=== PATIENT | female | born 1935 | race Caucasian/White ===

== ENCOUNTER 2019-12-08 03:20 | Outpatient (CLI) | payer MEDICARE, BC, SELFPAY ==
[2019-12-08 18:37] LABS: SARS-CoV-2 RNA PCR Negative
== END 2019-12-08 03:21 | disposition home or self-care (01) ==
LOC: ANHCOVIDDT 03:20
PROVIDERS: PCP Physician Assistant; Visit Provider Internal Medicine Gastroenterology
DX: Z01.812 Encounter for preprocedural laboratory examination (principal); Z20.828 Contact with and (suspected) exposure to other viral communicable diseases
CPT/HCPCS: 87635; C9803; U0003

== ENCOUNTER 2019-12-10 00:35 | Day surgery (SDC) | payer MEDICARE, BC, SELFPAY ==
[2019-11-30 15:06] VITALS: BMI 20.8
[2019-12-10 07:04] VITALS: BP 111/72; PULSE 69; RESP 16; TEMP 36.7; O2SAT 100
[2019-12-10] MEDS: LACTATED RINGERS 1,000 ML 150 ML IV CONT (07:17)
--- NOTE | 2019-12-10 08:00 | WPDANESEPPF ---
Anes - Initial Pre Proc Eval Procedure: Operation Date: 12/10/19 08:00 Proposed Procedures p Colonoscopy - Jamal Lowry DO Date/Time: 12/10/19 08:00 Surgeon: Jamal Lowry DO Pre Op Diagnosis: chronic constipation Patient Data Age: 84 Gender: F Height: 5 ft 1 in Weight: 50.4 kg Last Vital Signs Temp 98.1 F 12/10/19 07:04 Pulse 69 12/10/19 07:04 Resp 16 12/10/19 07:04 BP 111/72 12/10/19 07:04 Pulse Ox 100 12/10/19 07:04 Allergies Allergy/AdvReac Type Severity Reaction Status Date / Time No Known Allergies Allergy NONE Verified 12/10/19 07:02 Home Medications Medication Instructions Recorded Confirmed Type ascorbic acid 125 mg-collagen, 1 cap PO DAILY 03/19/19 12/10/19 History hydrolyzed 740 mg capsule multivitamin 1 tablet PO DAILY 03/19/19 12/10/19 History levothyroxine 50 mcg tablet 50 mcg PO DAILY #90 tablet 10/06/19 12/10/19 Rx lisinopril 10 mg tablet 10 mg PO DAILY #90 tablet 10/06/19 12/10/19 Rx Patient hx anesthesia problems: none Family hx anesthesia problems: none PMFSH Past Medical History Medical History (Updated 12/10/19 @ 08:00 by Jose Santana MD) Hypertension Hypothyroidism Social History Social History Smoking status: Never smoker Second hand tobacco smoke exposure: No Alcohol intake: never Anes - Eval Final PreProcedure Day of Procedure 12/10/19 08:00 Patient weight: normal Heart: regular rate and rhythm Lungs: clear to auscultation Airway: Mallampati scale class II Neurological: alert and oriented Last oral intake: >/= 8 hours ASA classification: II Emergent: no Anesthetic plan: proceed Anesthesia type and monitoring: general GIVS and standard monitoring Informed Consent: The patient's anesthetic plan and its attendant risks and benefits were discussed with the patient/family/POA. Questions were solicited and answers provided to the satisfaction of the patient/family/POA.
--- NOTE | 2019-12-10 08:14 | PM.IMHP ---
H&P: HPI History of Present Illness Date/Time: 12/10/19 08:14 Chief complaint: chronic constipation Narrative: Reason for visit is colonoscopy. This very pleasant lady seen in consultation at request of primary physician. Impression: Here is a very pleasant lady with abdominal bloating, constipation and gas. This compatible with IBS with constipation. There may be a component underlying chronic idiopathic constipation. She does complain of occasional rectal bleeding which is sounds perianal in origin. HTN. HLD. Hypothyroidism. Recommendation: Colonoscopy. History: This very pleasant lady is complaining of chronic abdominal bloating, constipation and gas. She has tried multiple different medications without any improvement. This is going on for years. She had a previous colonoscopy revealing evidence of a hyperplastic colon polyp. He does complain of occasional blood on the tissue paper. She is here for colonoscopy. Physical examination: General: very pleasant patient in no acute distress. HEENT: Head was normocephalic sclerae is clear mouth without masses neck was supple. Heart: Rate rhythm regular without S3 or S4. Lungs: CTA. Abdomen: Soft with no guarding or rigidity. Bowel sounds were active. Neurologic: Cranial nerves 2 through 12 intact. No focal defects. No clonus. Musculoskeletal system: Revealed no joint tenderness or swelling no muscle atrophy. Extremities: Reveal no significant edema. Skin: Warm and dry with normal turgor. Mental status: intact. Patient is alert and oriented. Review of Systems Review of Systems: All systems reviewed & are unremarkable except as noted in HPI and below PMFSH Past Medical History Medical History (Updated 12/10/19 @ 08:13 by Jamal Lowry DO) Chronic idiopathic constipation HLD (hyperlipidemia) Hypertension Hypothyroidism IBS (irritable bowel syndrome) Social History Social History Smoking status: Never smoker Second hand tobacco smoke exposure: No Alcohol intake: never Meds Home Medications and Allergies Home Medications Medication Instructions Recorded Confirmed Type ascorbic acid 125 mg-collagen, 1 cap PO DAILY 03/19/19 12/10/19 History hydrolyzed 740 mg capsule multivitamin 1 tablet PO DAILY 03/19/19 12/10/19 History levothyroxine 50 mcg tablet 50 mcg PO DAILY #90 tablet 10/06/19 12/10/19 Rx lisinopril 10 mg tablet 10 mg PO DAILY #90 tablet 10/06/19 12/10/19 Rx Allergies Allergy/AdvReac Type Severity Reaction Status Date / Time No Known Allergies Allergy NONE Verified 12/10/19 07:02 Vital Signs Vital Signs - 24 hr 12/10/19 07:04 Temperature 36.7 C Pulse Rate 69 Respiratory Rate 16 Blood Pressure 111/72 Pulse Oximetry 100
[2019-12-10 08:34] VITALS: BP 82/50; PULSE 73; RESP 13; O2SAT 98
[2019-12-10 08:44] VITALS: BP 110/74; PULSE 71; RESP 13; O2SAT 98
[2019-12-10 08:54] VITALS: BP 112/55; PULSE 64; RESP 13; O2SAT 98
== END 2019-12-10 09:16 | disposition home or self-care (01) ==
PROVIDERS: PCP Physician Assistant; Visit Provider Internal Medicine Gastroenterology
PROC: 0DJD8ZZ Inspection of Lower Intestinal Tract, Via Natural or Artificial Opening Endoscopic (ICD-10-PCS; CPT 45378; principal; 2019-12-10 08:00)
DX: K59.09 Other constipation (principal); K57.30 Diverticulosis of large intestine without perforation or abscess without bleeding; K64.8 Other hemorrhoids; R10.9 Unspecified abdominal pain; R14.0 Abdominal distension (gaseous); I10 Essential (primary) hypertension; E78.5 Hyperlipidemia, unspecified; E03.9 Hypothyroidism, unspecified
CPT/HCPCS: 45380; 88305; 88313; J2704; J7120

== ENCOUNTER 2019-12-15 09:17 | Outpatient (CLI) | payer MEDICARE, BC, SELFPAY ==
--- NOTE | ~2019-12-15 | CT_ITS ---
EXAMINATION: CT abdomen w con INDICATION: Left upper quadrant pain TECHNIQUE: Computed tomographic images of the abdomen were obtained after the administration of 100 c c of Omnipaque 350 intravenous contrast. The dose-length product (DLP) was 116.31 mGy-cm. Automated e xposure control and iterative reconstruction technique were employed. COMPARISON: 01/16/2015 FINDINGS: Minimal dependent atelectasis is present in the lung bases. The heart size is normal. There is a small sliding hiatal hernia. The liver, spleen, gallbladder, and adrenal glands are normal. Cys ts of the kidneys measure up to 1.5 cm on the right. There are no pathologically enlarged abdominal l ymph nodes. A large volume of colonic stool is present. There is moderate lumbar spondylosis. IMPRESSION: 1. Constipation. Reviewed, dictated and finalized at location B. IMPRESSION: 1. Constipation.
--- NOTE | ~2019-12-15 | MM_ITS ---
EXAMINATION: MM diagnostic lalo BI w mireya HISTORY: Palpable left breast abnormality. TECHNIQUE: Additional 3-D tomosynthesis images of the left breast were performed and synthetic 2-D im ages were generated. CAD analysis was submitted and interpreted. COMPARISON: 12/15/2019 BREAST PARENCHYMAL COMPOSITION: Breast composed of scattered areas of fibroglandular density. FINDINGS: There is focal asymmetry in the upper outer quadrant of the left breast corresponding to th e area of palpable concern. There is no mammographic evidence for malignancy. IMPRESSION: 1. Focal left breast asymmetry, upper outer quadrant, corresponding to the area of palpable concern. 2. Left breast ultrasound recommended. BI-RADS Category 0: Incomplete: Needs additional imaging evaluation. Reviewed, dictated and finalized at location A.
[2019-12-15 10:07] LABS: Estimated Glomerular Filt Rate 47
== END 2019-12-15 09:18 | disposition home or self-care (01) ==
PROVIDERS: PCP Physician Assistant; Visit Provider Physician Assistant Medical
DX: K59.00 Constipation, unspecified (principal); N63.21 Unspecified lump in the left breast, upper outer quadrant
CPT/HCPCS: 74160; 77062; 77066; G0279; Q9967

== ENCOUNTER 2020-01-05 13:25 | Outpatient (CLI) | payer MEDICARE, BC, SELFPAY ==
--- NOTE | ~2020-01-05 | US_ITS ---
EXAMINATION: US breast LT limited HISTORY: Palpable abnormality in the upper outer quadrant of the left breast TECHNIQUE: Limited left breast ultrasound is performed. FINDINGS: There is no evidence of focal abnormal cystic or solid mass in the vicinity of the reported palpable abnormality of concern. IMPRESSION: No specific sonographic correlate is identified for the reported palpable abnormality of concern. Fur ther evaluation at this time should be based on clinical assessment. Continued follow-up physical exa mination is recommended. BI-RADS Category 1: Negative Reviewed, dictated and finalized at location A. IMPRESSION: No specific sonographic correlate is identified for the reported palpable abnor mality of concern. Further evaluation at this time should be based on clinical assessment. Continued follow-up physical examination is recommended. BI-RADS Category 1: Negative
== END 2020-01-05 13:26 | disposition home or self-care (01) ==
PROVIDERS: PCP Physician Assistant; Visit Provider Physician Assistant Medical
DX: R92.8 Other abnormal and inconclusive findings on diagnostic imaging of breast (principal)
CPT/HCPCS: 76642

== ENCOUNTER 2020-01-12 07:10 | Outpatient (CLI) | payer MEDICARE, BC, SELFPAY ==
[2020-01-12 07:41] LABS: Hematocrit 39.8 % (37.0-47.0); Hemoglobin 13.1 g/dL (12.0-15.0); Mean Corpuscular HGB Conc 32.9 g/dl (32-36); Mean Corpuscular Hemoglobin 32.3 pg (26-34); Mean Corpuscular Volume 98.3 fl (80-100); Mean Platelet Volume 9.8 fl (7.4-10.4); Platelet Count Result 191 k/mm3 (150-375); Red Blood Count 4.05 M/mm3 (4.2-5.4); Red Cell Distribution Width 13.2 % (11.5-14.5); White Blood Count 4.7 K/mm3 (4.5-10.0)
[2020-01-12 07:54] LABS: Alanine Aminotransferase 12 U/L (4-35); Albumin Level 4.2 g/dL (3.5-5.1); Alkaline Phosphatase 70 U/L (38-126); Anion Gap 6 mmol/L (8-16); Aspartate Amino Transferase 25 U/L (14-36); Bilirubin,Total 0.6 mg/dL (0.2-1.3); Blood Urea Nitrogen 13 mg/dL (7-17); Calcium 9.3 mg/dL (8.4-10.2); Carbon Dioxide 33 mmol/L (22-30); Chloride 102 mmol/L (98-107); Cholesterol 260 mg/dL (0-200); Estimated Glomerular Filt Rate 47; Glucose 94 mg/dL (65-105); HDL Direct 76 mg/dL; Potassium 4.1 mmol/L (3.4-5.0); Sodium 141 mmol/L (137-145); Triglycerides 90 mg/dL (<150)
[2020-01-12 08:05] LABS: LDL Cholesterol Direct 154 mg/dL
== END 2020-01-12 07:11 | disposition home or self-care (01) ==
PROVIDERS: PCP Physician Assistant; Visit Provider Physician Assistant
DX: E03.9 Hypothyroidism, unspecified (principal); I10 Essential (primary) hypertension
CPT/HCPCS: 36415; 80053; 80061; 84443; 85027

== ENCOUNTER 2021-03-21 07:27 | Outpatient (CLI) | payer MEDICARE, BC, SELFPAY ==
[2021-03-21 08:08] LABS: Hematocrit 40.6 % (37.0-47.0); Hemoglobin 13.3 g/dL (12.0-15.0); Mean Corpuscular HGB Conc 32.8 g/dl (32-36); Mean Corpuscular Hemoglobin 32.1 pg (26-34); Mean Corpuscular Volume 98.1 fl (80-100); Mean Platelet Volume 9.9 fl (7.4-10.4); Platelet Count Result 189 k/mm3 (150-375); Red Blood Count 4.14 M/mm3 (4.2-5.4); Red Cell Distribution Width 13.1 % (11.5-14.5); White Blood Count 5.6 K/mm3 (4.5-10.0)
[2021-03-21 08:17] LABS: Alanine Aminotransferase 15 U/L (4-35); Albumin Level 4.4 g/dL (3.5-5.1); Alkaline Phosphatase 82 U/L (38-126); Anion Gap 5 mmol/L (8-16); Aspartate Amino Transferase 27 U/L (14-36); Bilirubin,Total 0.5 mg/dL (0.2-1.3); Blood Urea Nitrogen 16 mg/dL (7-17); Carbon Dioxide 30 mmol/L (22-30); Chloride 101 mmol/L (98-107); Cholesterol 287 mg/dL (0-200); Estimated Glomerular Filt Rate 53; Glucose 94 mg/dL (65-110); HDL Direct 79 mg/dL; Potassium 3.7 mmol/L (3.4-5.0); Sodium 136 mmol/L (137-145); Triglycerides 111 mg/dL (<150)
[2021-03-21 08:29] LABS: LDL Cholesterol Direct 157 mg/dL
[2021-03-21 10:54] LABS: Free T4 Free Thyroxine 0.98 ng/mL (0.78-2.19)
[2021-03-25 18:12] LABS: Folic Acid 14.7 ng/mL (2.76->20)
== END 2021-03-21 07:28 | disposition home or self-care (01) ==
PROVIDERS: PCP Physician Assistant; Visit Provider Physician Assistant
DX: E78.5 Hyperlipidemia, unspecified (principal); E03.9 Hypothyroidism, unspecified; R53.83 Other fatigue
CPT/HCPCS: 36415; 80053; 80061; 82607; 82746; 84439; 84443; 85027

== ENCOUNTER 2021-05-30 10:41 | Outpatient (CLI) | payer MEDICARE, BC, SELFPAY ==
[2021-05-30 11:25] LABS: Add Urine Microscopic? YES; Appearance Urine Cloudy (Clear); Bacteria Urine Trace /hpf; Bilirubin Urine Negative (Negative); Blood Urine 3+ (Negative); Color Urine Yellow (Yellow); Glucose Urine UA Negative (Negative); Ketones Urine Negative (Negative); Leukocyte Esterase Ur 3+ LEU/UL (NEGATIVE); Mucus Urine Rare /lpf; Nitrate Urine Negative (Negative); Protein Urine 2+ mg/dL (Negative); Specific Grav Ur 1.006 (1.001-1.035); Squamous Epithelial Cell Urine Rare /hpf (Few); Urobilinogen Urine Negative mg/dL (<2.0); WBC Clumps Urine Present /HPF; WBC Urine >75 /hpf (0-3)
== END 2021-05-30 10:42 | disposition home or self-care (01) ==
LOC: ANHLAB 10:44
PROVIDERS: PCP Physician Assistant; Visit Provider Physician Assistant
DX: R30.0 Dysuria (principal)
CPT/HCPCS: 81001; 87077; 87086; 87186

== ENCOUNTER 2021-07-28 07:10 | Outpatient (CLI) | payer MEDICARE, BC, SELFPAY ==
[2021-07-28 07:49] LABS: Alanine Aminotransferase 32 U/L (4-35); Albumin Level 4.1 g/dL (3.5-5.1); Alkaline Phosphatase 69 U/L (38-126); Anion Gap 4 mmol/L (8-16); Aspartate Amino Transferase 36 U/L (14-36); Bilirubin,Total 0.5 mg/dL (0.2-1.3); Blood Urea Nitrogen 13 mg/dL (7-17); Calcium 9.1 mg/dL (8.4-10.2); Carbon Dioxide 30 mmol/L (22-30); Chloride 100 mmol/L (98-107); Estimated Glomerular Filt Rate 53; Glucose 97 mg/dL (65-110); Potassium 4.1 mmol/L (3.4-5.0); Sodium 134 mmol/L (137-145)
== END 2021-07-28 07:11 | disposition home or self-care (01) ==
LOC: ANHLAB 07:14
PROVIDERS: Visit Provider Physician Assistant
DX: R74.8 Abnormal levels of other serum enzymes (principal)
CPT/HCPCS: 36415; 80053

== ENCOUNTER 2021-08-29 20:30 | Emergency (ER) | payer MEDICARE, BC, SELFPAY ==
[2021-08-29] VITALS (13 sets, daily range): BP systolic 156–179; BP diastolic 71–85; PULSE 58–67; RESP 13–25; TEMP 36.7; O2SAT 96–100
--- NOTE | ~2021-08-29 | XR_ITS ---
EXAMINATION: XR chest 2V Exam Date/Time: 08/29/2021 20:49 CDT HISTORY: WEAKNESS, STROKE X 6 WEEKS AGO, NO CARDIAC HX Comparison: CT abdomen 12/15/2019. RESULT: Lines, tubes, and devices: None. Lungs and pleura: Clear. Cardiomediastinal silhouette: Stable cardiomediastinal silhouette including multiple calcified lymph nodes. Other: No acute osseous or upper abdominal finding. IMPRESSION: No acute cardiopulmonary process. Reviewed, dictated and finalized at location K.
--- NOTE | 2021-08-29 20:38 | ED.GENADULT ---
HPI - General Adult General Chief complaint: Weakness Stated complaint: thinks she has a bladder infection Time Seen by Provider: 08/29/21 20:38 Source: patient, family and RN notes reviewed Mode of arrival: ambulatory Limitations: no limitations History of Present Illness HPI narrative: Patient is 85 years old white female brought to the emergency room by her daughter from home because of general fatigue and weakness noticed by the daughter today. Patient had knee injection yesterday and her main complaint today is knee pain. She denies other symptoms. She denies any fever, chills, nausea, vomiting, abdominal pain, chest pain, shortness of breath, headache, back pain. 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 With right hemiplegia and aphasia which are slowly getting better. Patient used to live alone, after having a stroke been living with her daughter since. Related Data Home Medications Medication Instructions Recorded Confirmed multivitamin (Multiple Vitamins) 1 tablet PO DAILY 03/19/19 08/28/21 polyethylene glycol 3350 17 17 g PO DAILY 07/18/21 08/28/21 gram/dose oral powder Allergies Allergy/AdvReac Type Severity Reaction Status Date / Time No Known Allergies Allergy NONE Verified 08/28/21 11:01 Review of Systems Review of Systems: All systems reviewed & are unremarkable except as noted in HPI and below PMFSH Past Medical History Medical History Aphasia as late effect of cerebrovascular accident At risk for falling Chronic idiopathic constipation Constipation CVA (cerebral vascular accident) Dysarthria Dysuria Elevated liver enzymes 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 Daughter is involved and will provide assistance. Smoking status: Never smoker Second hand tobacco smoke exposure: No Alcohol intake: never Substance use: never Substance use type: does not use Gender identity (if verbalized by the patient): Female Exam Narrative: General appearance: Well-developed, well-nourished, looks weak, depressed Skin: Normal color Head: Normocephalic, nontraumatic Eyes: Clear conjunctiva ENT: Oropharynx normal, ears normal, nose normal Neck: Supple, nontender Chest and respiratory: Airway patent, no respiratory distress, no accessory muscle use Heart: Regular rate/rhythm Abdomen: Soft, nontender, no organomegaly, quiet bowel sounds Vascular: Normal peripheral pulses, normal capillary refill. Musculoskeletal: Normal range of motion, nontender back, knee exam bilaterally showed no different, no rash, no swelling, no warmth, no tenderness, I have 8 minutes Neurologic: Alert and oriented ?3, right hemiplegia Course Vital Signs Vital signs: Vital Signs Temperature 36.7 C 08/29/21 20:36 Pulse Rate 58 L 08/29/21 20:36 Respiratory Rate 18 08/29/21 20:36 Blood Pressure 156/71 H 08/29/21 20:36 Pulse Oximetry 99 08/29/21 20:36 Oxygen D
--- NOTE | 2021-08-29 20:41 | ECG_ITS ---
Measurements Intervals [place] Rate: 63 P: 57 MI: 143 QRS: -14 QRSD: 86 T: 53 QT: 415 QTc: 428 Interpretive Statements SINUS RHYTHM DELAYED PRECORDIAL R/S TRANSITION BORDERLINE ECG Electronically Signed On 08-30-2021 6:09:59 CDT by Daniel Chan D.O.
[2021-08-29 21:23] LABS: Basophils Percent Auto 0.8 % (0.2-1.2); Eosinophils Absolute Auto 0.2 K/mm3 (0-0.3); Eosinophils Percent Auto 3.7 % (0-4.4); Hematocrit 36.8 % (37.0-47.0); Hemoglobin 12.1 g/dL (12.0-15.0); Immature Granulocyte Absolute 0.01 K/mm3 (0.00-0.031); Immature Granulocyte Percent A 0.2 % (0-0.5); Lymphocytes Absolute Auto 1.83 K/mm3 (0.9-3.2); Mean Corpuscular HGB Conc 32.9 g/dl (32-36); Mean Corpuscular Hemoglobin 32.7 pg (26-34); Mean Corpuscular Volume 99.5 fl (80-100); Mean Platelet Volume 9.9 fl (7.4-10.4); Monocytes Absolute Auto 0.4 K/mm3 (0.1-0.6); Monocytes Percent Auto 8.4 % (2.6-8.5); Neutrophils Absolute Auto 2.6 K/mm3 (1.3-6.7); Neutrophils Percent Auto 50.9 % (45.5-73.1); Platelet Count Result 172 k/mm3 (150-375); Red Cell Distribution Width 13.4 % (11.5-14.5); White Blood Count 5.1 K/mm3 (4.5-10.0)
[2021-08-29 21:24] LABS: Appearance Urine Clear (Clear); Bilirubin Urine Negative (Negative); Blood Urine Trace-lysed (Negative); Color Urine Yellow (Yellow); Glucose Urine UA Negative (Negative); Ketones Urine Negative (Negative); Leukocyte Esterase Ur Negative LEU/UL (Negative); Nitrate Urine Negative (Negative); Protein Urine Negative (Negative); Urobilinogen Urine 0.2 mg/dL (<2.0)
[2021-08-29 21:27] LABS: Add Urine Microscopic? YES; RBC Urine 0-2 /hpf (0-2); WBC Urine 0-3 /hpf
[2021-08-29 21:35] LABS: Alanine Aminotransferase 21 U/L (6-35); Alkaline Phosphatase 50 U/L (38-126); Anion Gap 5 mmol/L (8-16); Aspartate Amino Transferase 35 U/L (14-36); Bilirubin,Total 0.8 mg/dL (0.2-1.3); Blood Urea Nitrogen 17 mg/dL (7-17); Calcium 8.9 mg/dL (8.4-10.2); Carbon Dioxide 28 mmol/L (22-30); Chloride 103 mmol/L (98-107); Estimated CRCL calculation 33 ml/min; Estimated Glomerular Filt Rate > 60; Glucose 93 mg/dL (65-110); Potassium 4.1 mmol/L (3.4-5.0); Sodium 136 mmol/L (137-145)
== END 2021-08-29 22:26 | disposition home or self-care (01) ==
LOC: ANHED 21:28
PROVIDERS: Emergency Provider Emergency Medicine; PCP Physician Assistant
DX: R53.1 Weakness (principal); I69.351 Hemiplegia and hemiparesis following cerebral infarction affecting right dominant side; I69.320 Aphasia following cerebral infarction; K59.04 Chronic idiopathic constipation; E78.5 Hyperlipidemia, unspecified; I10 Essential (primary) hypertension; E03.9 Hypothyroidism, unspecified; K58.9 Irritable bowel syndrome, unspecified; M17.11 Unilateral primary osteoarthritis, right knee; R94.31 Abnormal electrocardiogram [ECG] [EKG]
CPT/HCPCS: 36415; 51701; 71046; 80053; 81001; 84443; 85025; 93005; 99283

== ENCOUNTER 2021-11-10 11:27 | Emergency (ER) | payer MEDICARE, BC, SELFPAY ==
[2021-11-10] VITALS (28 sets, daily range): BP systolic 128–149; BP diastolic 60–72; PULSE 60–76; RESP 11–28; TEMP 36.4; O2SAT 96–100
--- NOTE | ~2021-11-10 | CT_ITS ---
EXAMINATION: CT brain wo con DATE: 11/10/2021 12:13 INDICATION: Generalized headache for 2 weeks. CVA in July. TECHNIQUE: Computed tomography (CT) of the head was performed without intravenous contrast. The dose- length product was 605.33 mGy-cm. Automated exposure control and iterative reconstruction technique w ere employed. COMPARISON: No prior studies for comparison. FINDINGS: There is geographic hypodensity in the right temporoparietal lobe, consistent with acute/nguyen bacute infarction. There are chronic left lacunar infarctions primarily involving the caudate nucleus and lentiform nucleus. Mild generalized atrophy. There are scattered mild periventricular and subcor tical white matter changes, most likely related to small vessel ischemic disease (microangiopathy). P aranasal sinuses and mastoids are pneumatized. Small left mastoid effusion. No depressed skull fractu re. IMPRESSION: 1. Right temporal-parietal lobe infarction, most likely acute/subacute. 2: Chronic left lacunar infarctions. Dr. Missael Drake discussed with Dr. Kathie Edward PA-C at 11/10/2021 12:18 CDT. Reviewed, dictated and finalized at location A.
--- NOTE | ~2021-11-10 | XR_ITS ---
EXAMINATION: XR chest 1V portable DATE: 11/10/2021 14:16 INDICATION: Cerebrovascular accident. TECHNIQUE: A single frontal view of the chest was obtained. COMPARISON: Chest 2 views 08/29/2021, CT abdomen 12/15/2019 FINDINGS: There is mild scarring at the lung apices. No pleural effusion or pneumothorax. The heart s ize is normal. IMPRESSION: 1. Mild scarring at the lung apices. Reviewed, dictated and finalized at location A.
--- NOTE | 2021-11-10 11:50 | ED.HA ---
HPI - Headache General Chief Complaint: Headache <LÁZARO Alvarez Last Filed: 11/10/21 17:44> Stated Complaint: headaches, hx of cva <LÁZARO Alvarez Last Filed: 11/10/21 17:44> Time Seen by Provider: 11/10/21 11:34 <LÁZARO Alvarez Last Filed: 11/10/21 17:44> Source: patient, family and old records reviewed <LÁZARO Alvarez Last Filed: 11/10/21 17:44> Mode of arrival: ambulatory <LÁZARO Alvarez Last Filed: 11/10/21 17:44> Limitations: no limitations <LÁZARO Alvarez Last Filed: 11/10/21 17:44> History of Present Illness HPI Narrative: Patient is an 86 y/o female who presents to the ED with c/o headaches. Per patient's records, she was diagnosed with a CVA and hospitalized at [facility] July 09-. She has been doing home health rehabilitation and physical therapy since then. She reports having intermittent mild headache over the last 2 weeks, which began in her right sided neck and go up into her right temporal region. She states her PCP sent her here today for a CT scan. Patient denies any headache currently. She states Tylenol does resolve the headaches. She denies any vision changes, new focal weakness, numbness, tingling, sinus issues, cough, fever. Patient states she was doing well initially with PT and rehab, but has been declining slightly over the last month. She does report an episode of severe dizziness/discoordination upon waking on October 09. Daughter denies any other focal deficits, slurred speech, weakness at that time. She was not evaluated at that time. <LÁZARO Alvarez Last Filed: 11/10/21 17:44> Related Data Home Medications: Home Medications Medication Instructions Recorded Confirmed multivitamin (Multiple Vitamins 1 tablet PO DAILY 03/19/19 10/31/21 tablet) polyethylene glycol 3350 17 17 g PO DAILY 07/18/21 10/31/21 gram/dose oral powder <LÁZARO lAvarez Last Filed: 11/10/21 17:44> Allergies/Adverse Reactions: Allergies Allergy/AdvReac Type Severity Reaction Status Date / Time No Known Allergies Allergy NONE Verified 11/10/21 11:31 <Kathie Edward PA-C - Last Filed: 11/10/21 17:44> Review of Systems Review of Systems: CONSTITUTIONAL: Denies fever, chills, or sweats. EYES: Denies visual changes. RESPIRATORY: Denies cough. ENT: Denies rhinorrhea, congestion, sore throat. GASTROINTESTINAL: Denies abdominal pain, nausea, vomiting. NEUROLOGIC: Reports right-sided headaches, episode of dizziness. Denies tingling, numbness, or focal weakness. 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 History of small bowel obstruction HLD (hyperlipidemia) Hyperlipidemia Hypertension Hypothyroidism Hypothyroidism IBS (irritable bowel syndrome) Left knee DJD Other fatigue Pain of right lower extremity Restless leg syndrome Right knee DJD SOB (shortness of breath) Vision changes <Kathie Edward PA-C - Last Filed: 11/10/21 17:44> Surgical History Surgical History: Surgical History History of bowel resection History of foot surgery History of hysterectomy leaving cervix intact <Kathie Edward PA-C - Last Filed: 11/10/21 17:44> Family History Family History: Family History Unknown Hypertension Heart di
--- NOTE | 2021-11-10 14:00 | PC.NURSE ---
Spoke with [facility] and gave nurse report to [facility] nurse. All questions answered at this time and informed that we are awaiting bed availability at [facility] at this time.
--- NOTE | 2021-11-10 14:02 | ECG_ITS ---
Measurements Intervals [place] Rate: 60 P: 59 KS: 145 QRS: -3 QRSD: 82 T: 44 QT: 403 QTc: 406 Interpretive Statements SINUS RHYTHM POOR R-WAVE PROGRESSION POSSIBLE LEFT ATRIAL ENLARGEMENT [-0.1mV P-WAVE IN V1/V2] COMPARED TO ECG 08/29/2021 21:02:48 NO SIGNIFICANT CHANGES Electronically Signed On 11-10-2021 16:35:09 CDT by Ulises Powers M.D.
[2021-11-10 14:25] LABS: Basophils Percent Auto 0.8 % (0.2-1.2); Eosinophils Absolute Auto 0.1 K/mm3 (0-0.3); Eosinophils Percent Auto 2.1 % (0-4.4); Hematocrit 39.3 % (37.0-47.0); Hemoglobin 12.4 g/dL (12.0-15.0); Immature Granulocyte Absolute 0.01 K/mm3 (0.00-0.031); Immature Granulocyte Percent A 0.2 % (0-0.5); Lymphocytes Absolute Auto 1.85 K/mm3 (0.9-3.2); Lymphocytes Percent Auto 38.7 % (18.3-44.2); Mean Corpuscular HGB Conc 31.6 g/dl (32-36); Mean Corpuscular Hemoglobin 32.8 pg (26-34); Mean Platelet Volume 10.3 fl (7.4-10.4); Monocytes Absolute Auto 0.4 K/mm3 (0.1-0.6); Monocytes Percent Auto 7.7 % (2.6-8.5); Neutrophils Absolute Auto 2.4 K/mm3 (1.3-6.7); Neutrophils Percent Auto 50.5 % (45.5-73.1); Platelet Count Result 172 k/mm3 (150-375); Red Blood Count 3.78 M/mm3 (4.2-5.4); Red Cell Distribution Width 13.3 % (11.5-14.5); White Blood Count 4.8 K/mm3 (4.5-10.0)
[2021-11-10 14:33] LABS: INR 0.9; Prothrombin Time 12.1 Seconds (11.1-14.7)
[2021-11-10 14:34] LABS: Alanine Aminotransferase 20 U/L (6-35); Albumin Level 4.4 g/dL (3.5-5.1); Alkaline Phosphatase 56 U/L (38-126); Anion Gap 9 mmol/L (8-16); Aspartate Amino Transferase 29 U/L (14-36); Bilirubin,Total 0.4 mg/dL (0.2-1.3); Blood Urea Nitrogen 19 mg/dL (7-17); Calcium 9.3 mg/dL (8.4-10.2); Carbon Dioxide 29 mmol/L (22-30); Chloride 100 mmol/L (98-107); Estimated CRCL calculation 26 ml/min; Estimated Glomerular Filt Rate 52; Glucose 95 mg/dL (65-110); Partial Thromboplastin Time 25.8 SECONDS (22.3-36.8); Sodium 138 mmol/L (137-145)
[2021-11-10 14:43] LABS: Troponin I < 0.012 ng/mL (0.000-0.034)
[2021-11-10 14:57] LABS: SARS-CoV-2 RNA PCR Negative
--- NOTE | 2021-11-10 17:40 | PC.NURSE ---
Patient care report called to ROSE Ware at [facility]. All questions answered at this time.
== END 2021-11-10 19:45 | disposition short-term general hospital (02) ==
PROVIDERS: Physician Assistant; Emergency Provider Emergency Medicine; PCP Physician Assistant
DX: I63.9 Cerebral infarction, unspecified (principal); Z20.822 Contact with and (suspected) exposure to COVID-19; R29.701 NIHSS score 1; I69.920 Aphasia following unspecified cerebrovascular disease; I69.951 Hemiplegia and hemiparesis following unspecified cerebrovascular disease affecting right dominant side; E78.5 Hyperlipidemia, unspecified; I10 Essential (primary) hypertension; E03.9 Hypothyroidism, unspecified; M17.0 Bilateral primary osteoarthritis of knee; G25.81 Restless legs syndrome; M19.90 Unspecified osteoarthritis, unspecified site; Z90.49 Acquired absence of other specified parts of digestive tract
CPT/HCPCS: 36415; 70450; 71045; 80053; 84484; 85025; 85610; 85730; 93005; 99285; C9803; U0003; U0005

== ENCOUNTER 2021-11-29 11:00 | Outpatient (RCR) | payer MEDICARE, BC, SELFPAY ==
--- NOTE | 2021-09-07 14:45 | OTOPEVAL ---
OCCUPATIONAL THERAPY INITIAL EVALUATION REPORT 09/07/21 Thank you for referring Anuradha Hager to [facility].? The patient is scheduled to be seen for therapy? 1x/week for 4 weeks. Please review, sign, date and return this plan of care JENNIFER. I agree with and certify that the following plan of care is medically necessary. Referring Physician Date Referring Provider: Sohail Martínez PA-C *OT Outpatient Evaluation Start: 09/07/21 13:40 Outpatient Past Medical History Neurological History Hx Neurological Disorders No Significant History Cardiovascular History Hx Hypertension Yes Respiratory History Hx Respiratory Disorders No Significant History Gastrointestinal History Hx Irritable Bowel Yes Hx Other Gastrointestinal Disorders Yes: Exploratory Laparotomy Genitourinary History Hx Genitourinary Disorders No Significant History Musculoskeletal History Hx Arthritis Yes Hx Orthopedic Surgery Yes: right foot surgery Hematological History Hx Hematological Disorders No Significant History Endocrine History Hx Hypothyroidism Yes HEENT History Hx Cataracts Yes: removed Integumentary History Hx Other Skin Disorders Yes: Dry Psychosocial History Hx Psychiatric Disorders No Significant History Pain History History of Any Previous or Ongoing No Significant History Instance of Pain Evaluation Information Problem Diagnosis CVA Onset 07/08/21 Subjective Information Patient states that since her Query Text:As Reported By Patient/ stroke she has been staying Family with her daughter/JAYLYN's home. Her goal is to get back to her home where she previously lived alone and was independent with ADLs, yard work, cooking, cleaning, and laundry. She did not drive prior to her CVA. At this time her daughter is helping with shower transfers, cooking, and laundry. 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 Prior Level of Function Comments Additional Prior Level of Function Her home set up: 1 step to Comments enter, everything on the main level, tub shower w/ curtain and seat Pain Assessment Timing of Pain Assessment Timing of Pain Assessment Assessment Self Report Self Report Pain Level 0 Pain Score Pain
--- NOTE | 2021-09-07 16:15 | STOPEVAL ---
Thank you for referring Anuradha Hager to [facility].? The patient is scheduled to be seen for therapy? 1x/week for 3-4 weeks. Please review, sign, date and return this plan of care JENNIFER. I agree with and certify that the following plan of care is medically necessary. Referring Physician Date Attending Provider: Sohail Martínez PA-C Therapy Assessment Status Assessment Status Assessment Status Evaluation Outpatient Past Medical History Neurological History Hx Cerebrovascular Accident (CVA) Yes: July Cardiovascular History Hx Hypertension Yes Respiratory History Hx Respiratory Disorders No Significant History Gastrointestinal History Hx Irritable Bowel Yes Hx Other Gastrointestinal Disorders Yes: Exploratory Laparotomy Genitourinary History Hx Genitourinary Disorders No Significant History Musculoskeletal History Hx Arthritis Yes Hx Orthopedic Surgery Yes: right foot surgery Hematological History Hx Hematological Disorders No Significant History Endocrine History Hx Hypothyroidism Yes HEENT History Hx Cataracts Yes: removed Integumentary History Hx Other Skin Disorders Yes: Dry Psychosocial History Hx Psychiatric Disorders No Significant History Pain History History of Any Previous or Ongoing No Significant History Instance of Pain Anesthesia History Hx Anesthesia Reactions No Significant History Evaluation Information Problem Onset 07/08/21 Cause CVA Subjective Information Patient reports she feels she Query Text:As Reported By Patient/ is doing really well. She Family state that she felt she was doing well when in [facility] Speech Therapy, she had made great progress but after discharge approximately two weeks ago, she stated that she felt she needed a rest (from all therapies) and that she went downhill after that. She characterized it as her speech being slow and forming my words is not good. When questioned she indicated that she speaks more slowly and when asked to describe the issue with forming her words, she stated that when she gets excited she can't speak clearly. But if I get a little more help, I will do
--- NOTE | 2021-09-14 09:01 | PTOPEVAL ---
PHYSICAL THERAPY EVALUATION AND PLAN OF CARE 09-14-21 Thank you for referring Anuradha Hager to [facility], s/p CVA. Mrs. Hager is scheduled to be seen for therapy? 1 x/week for 6 weeks. Please review, sign, date and return this plan of care JENNIFER. I agree with and certify that the following plan of care is medically necessary. Referring Physician Date Attending Provider: Sohail Martínez PA-C Past Medical History Source of Past Medical History Recalled from Previous Visit, Confirmed with Patient/Family Neurological History Hx Cerebrovascular Accident (CVA) Yes: July Cardiovascular History Hx Hypertension Yes Respiratory History Hx Respiratory Disorders No Significant History Gastrointestinal History Hx Irritable Bowel Yes Hx Other Gastrointestinal Disorders Yes: Exploratory Laparotomy Genitourinary History Hx Genitourinary Disorders No Significant History Musculoskeletal History Hx Arthritis Yes: B knees- have had injections; fingers Hx Orthopedic Surgery Yes: right foot surgery Hematological History Hx Hematological Disorders No Significant History Endocrine History Hx Hypothyroidism Yes HEENT History Hx Cataracts Yes: removed; Hx Other HEENT Disorders Yes: wear glasses Integumentary History Hx Other Skin Disorders Yes: Dry Psychosocial History Hx Psychiatric Disorders No Significant History Pain History History of Any Previous or Ongoing No Significant History Instance of Pain Anesthesia History Hx Anesthesia Reactions No Significant History Evaluation Information Diagnosis s/p CVA Onset 07-08-21 Subjective Information is doing leg exercises from Query Text:As Reported By Patient/ previous therapy--supine, sit Family and standing exercises; wants to return to her own home; Previous Treatments Previous Treatments For This Problem had in pt rehab and [facility] therapy; Prior Level of Function prior to CVA in July- lived Comments alone, indep with all activities- yard and home tasks; did not use an assistive device and did not drive; NOW- staying with her daughter --she is assisting pt with shower transfer, cooking, laundry. Pt is using a wheeled walker at all times; does have a straight cane at home, but has never used it;
--- NOTE | 2021-10-03 13:01 | OTOPEVAL ---
OCCUPATIONAL THERAPY RE-EVALUATION AND DISCHARGE SUMMARY 10/03/21 Anuradha presents today for OT re-evaluation. OT sessions focused on right hand strength and fine motor coordination. 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 She states she feels confident in continuing her HEP on her own for these areas. Plan to discharge today with patient independent with HEP. Thank you for referring Anuradha Hager to [facility].? Please review, sign, date and return this D/C note JENNIFER. I agree with and certify that the following plan of care is medically necessary. Referring Physician Date Referring Provider: Sohail Martínez PA-C Re-Evaluation Information Problem Diagnosis s/p CVA Onset 07-08-21 Subjective Information Patient reports that in the Query Text:As Reported By Patient/ last few weeks she has moved Family back into her own home, has progressed to being independent with ADLs, light cooking, and is doing her own laundry. 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 Pain Assessment Timing of Pain Assessment Timing of Pain Assessment Assessment Self Report Self Report Pain Level 0 Pain Score Pain Score 0: Self Report Upper Extremity Range of Motion General Upper Extremity Range of Motion Reason Not Measured WNL/Left,WNL/Right Upper Extremity Muscle Strength Testing Scapular/Shoulder Bilateral Shoulder Flexion Strength 4+ Good + Shoulder Extension Strength 5 Normal Shoulder Abduction Strength 4+ Good + Shoulder Adduction Strength 5 Normal Elbow/Forearm Bilateral Elbow Flexion Strength 5 Normal Elbow Extension Strength 5 Normal Wrist Strength Bilateral Wrist Flexion Strength 4+ Good + Wrist Extension Strength 4+ Good + Hand Medical Coding Specialist/Pinch Strength Assessment Hand Right Medical Coding Specialist Strength (lbs) 58 Lateral Pinch Strength (lbs) 5.67 Palmar Pinch Strength (lbs) 6 Tip Pinch Strength (lbs) 2 Hand Medical Coding Specialist/Pinch Strength Comments Measurements from 09/07/21: Medical Coding Specialist 57 lbs. Lateral 1.33 lbs. Palmar 5.33 lbs. Tip 1 lb. 9-Hole Peg Hand Test Hand Right Hand Dominance Right Scoring Time (seconds) 30 Interpretation Within Normal Range Comments Improved from 34 sec at SOC. OT Clinical Summary OT Clinical Summary Anuradha presents today for OT
--- NOTE | 2021-10-03 16:26 | STOPEVAL ---
SPEECH THERAPY RE-EVALUATION AND DISCHARGE SUMMARY Anuradha presents today for Speech Therapy re-evaluation. Speech Therapy focused on improving right buccal/cheek strength to prevent pocketing of food on the right side and higher-level cognitive skills. Patient feels that overall she has improved in all areas except for pocketing of food on the right. The plan is to discharged this date with home program established. Thank you for referring Anuradha Hager to [facility]. Please review, sign, date and return this D/C notice JENNIFER. I agree with and certify that the following plan of care is medically necessary. Referring Physician Date Attending Provider: Sohail Martínez PA-C SPEECH THERAPY RE-EVALUATION AND DISCHARGE SUMMARY Patient presents today for Speech Therapy re-evaluation in order to determine progress and/or need to continue ST services. Patient has been seen for a Speech Therapy evaluation and three treatment sessions focusing on right labial/buccal strength in order to prevent oral residue in right cheek, and higher- level cognitive skills. Patient reports that she feels that she is Following directions, responding to questions and participating in conversations well however she stated that she does occasionally respond one way, and then change her mind and change her response but not because she did not understand the question but because she truly just changed her mind. The patient reports that she is now living on her own and that one daughter calls in the morning to check on her and the other keeps tabs on her frequently however she does not have to call the patient any longer to remind her to take her pills. Patient reports that she still has difficulty with regular food falling into the sulcus on the right side, often requiring her to clear the food first
--- NOTE | 2021-10-26 10:45 | PTOPEVAL ---
PHYSICAL THERAPY REEVALUATION AND UPDATED PLAN OF CARE 10-26-21 Refer to the clinical summary below, for her status today, compared to the initial evaluation. The goals were partially achieved. Continue PT treatment 1x/wk for 4 weeks, to further increase her gait and balance skills. Thank you for referring Anuradha Hager to [facility].? Please review, sign, date and return this updated plan of care JENNIFER. I agree with and certify that the following plan of care is medically necessary. Referring Physician Date Attending Provider: Sohail Martínez PA-C Subjective Information Anuradha reports: have not had Query Text:As Reported By Patient/ brain fog for the past few Family days; walking better and speech is better; when walking in the house, does not use anything-use the cane or walker when going in yard or unfamiliar places; have not had any falls, but have a fear of falling and hurting herself; doing short distances in stores; want to continue therapy for her balance-- problems when turning, feet get tangled up; doing the exercises at home 15 reps; Pain Assessment Self Report Self Report Pain Level 0 Pain Score Pain Score 0: Self Report Gross Lower Extremity Strength functional strength testing: - single leg standing R 8/ L 8 seconds - supine SLR R /L 25 reps - standing hip exercises with 1 UE support: hip abduction R &L 20 reps; hip extension R & L 15 reps Chair Transfer Comments sit to/ from stand without use of UE's; good initial standing balance and correct, safe technique used; Soto Balance Assessment Sitting to Standing Independent w/out Hands Unsupported Stance Ability Safely- 2 minutes Sitting Unsupported, Feet on Floor Safely- 2 minutes Standing to Sitting Assist, Use Legs on Chair Transfer Ability Safely, Minimal Hand Use Unsupported Stance- Eyes Closed Safely, 10 seconds Unsupported Stance- Feet Together Independent, 1 minute Reaching Forward while Standing Confidently, 10 inches supervisor plate pasting Object From Floor Independent/Safe Look Behind Shoulder - Standing Shifts Weight Well Turning 360 Degrees Turns Bilateral, < 4 secs Unsupported Stance, Alternating Feet on (I)- 8 Steps in 20 secs Stair
--- NOTE | 2021-11-09 16:05 | PCPTNOTE ---
On 11/09/21, the student, Efrain Harry, provided care and completed [facility] documentation on this patient. I have reviewed the student's documentation and agree with the findings.
--- NOTE | 2021-11-16 09:19 | PCPTNOTE ---
Patient called & cancelled scheduled appointment this date due to being in inpatient rehab.
--- NOTE | 2021-11-21 09:17 | PCPTNOTE ---
LATE ENTRY: received message; called pt daughter, she stated pt was in the hospital and has new orders, so she will call and make an appointment for reeval.
--- NOTE | 2021-11-27 15:20 | PTOPEVAL ---
PHYSICAL THERAPY RE-EVALUATION AND UPDATED PLAN OF CARE 11-27-21 Anuradha presents with new PT orders, s/p hospitalization with fatigue and diagnosis of new CVA. Refer to the clinical summary below, for her status today, compared to the last reevaluation on 10-26-21. The goals were partially achieved. Continue PT treatment 2x/wk for 3 weeks, to further increase LE strength, gait and balance skills, to improve safety and mobility skills, with progression of her HEP. Thank you for referring Anuradha Hager to [facility].? Please review, sign, date and return this updated plan of care JENNIFER. I agree with and certify that the following plan of care is medically necessary. Referring Physician Date Attending Provider: Sohail Martínez PA-C Subjective Information Anuradha reports: went to ER Query Text:As Reported By Patient/ 11-14 due to fatigue, had CVA and Family to in-pt rehab until 11-22-21; not having any problems getting around at home; doing the leg exercises at home; using the wheeled walker when go out and in the house, sometimes walk without anything; sometimes feel unsteady when walking; Pain Assessment Self Report Self Report Pain Level 0 Pain Score Pain Score 0: Self Report Gross Lower Extremity Strength functional strength testing of LE's: -single leg standing R 3/L 7 seconds - standing with 1 UE support: R and L hip abduction and extension x 15 reps each; Bed Transfer Assessment Bed Transfer Assistive Devices None Bed Transfer Destination Ambulatory Sit to Stand Bed Transfer Ability Independent Stand to Sit Bed Transfer Ability Independent Cues Needed for Bed Transfer Verbal Bed Transfer Comments indep with sit/stand transfer, without use of UE's, with verbal cues for safety with standing to sitting transfer, turned and left walker to the side, holding with 1 UE to the walker; Floor Transfer Assessment Stand to Floor Transfer Ability Standby Assistance Floor to Stand Transfer Ability Standby Assistance Cues Needed for Floor Transfer Verbal Floor Transfer Comments use of walker to assist with transfer; pt reports she wants to work in her yard, pulling weeds and trimming shrubs; discussed safety with these acti
--- NOTE | 2021-11-30 14:04 | PCPTNOTE ---
This treatment is being continued on visit number [id number]. Please see documentation on both accounts to view progress. Completed interventions, outcomes, and problems have been marked as Inactive to facilitate the copying of the Care plan routine for recurring accounts.
== END 2021-11-29 14:29 | disposition home or self-care (01) ==
LOC: ANHPT 11:00
PROVIDERS: PCP Physician Assistant; Visit Provider Physician Assistant
DX: I69.320 Aphasia following cerebral infarction (principal); I69.351 Hemiplegia and hemiparesis following cerebral infarction affecting right dominant side
CPT/HCPCS: 92507; 92523; 92610; 97110; 97112; 97161; 97165; 97530

== ENCOUNTER 2021-12-20 12:30 | Outpatient (RCR) | payer MEDICARE, BC, SELFPAY ==
--- NOTE | 2021-11-30 14:21 | PCPTNOTE ---
This treatment is being continued from previous visit number [id number] . Please see documentation on both accounts to view progress. Completed interventions, outcomes, and problems have been marked as Inactive to facilitate the copying of the Care plan routine for recurring accounts.
--- NOTE | 2021-12-20 13:15 | PTOPDC ---
Assessment and note entered by Jazz Pederson, PT Evaluation Information Assessment Status Discharge Subjective Information Anuradha reports: is doing better, walking better and getting stronger; doing the exercises at home ; have not had any falls, but had loss of balance when turning; have been out in yard pulling weeds- -standing and pull them; have not been to daughter's house or her stairs; do everything I used to do, but slower and have to rest more often ; ready to be done with the therapy; Reported Pain Level Pain Score 0: Self Report Assessment PT Clinical Summary Anuradha has received 17 PT sessions for LE strengthening, gait and balance retraining. Compared to the last reevaluation she has improved with: single leg standing tolerance, R and L hip strength with standing exercises, Soto balance score by 3 points, TUG by 2 seconds; doing well on stairs; HEP has been progressed and she is motivated. The goals were partially achieved. She continues to report a fear of falling, although she has not had any falls. Discharge PT services, she is to continue with her home exercises. Plan of Care PT Services Indicated No
== END 2022-02-19 10:25 | disposition home or self-care (01) ==
LOC: ANHPT 12:30
PROVIDERS: PCP Physician Assistant; Visit Provider Physician Assistant
DX: I69.320 Aphasia following cerebral infarction (principal)
CPT/HCPCS: 97110; 97112

== ENCOUNTER 2022-01-31 10:36 | Outpatient (CLI) | payer MEDICARE, BC, SELFPAY ==
[2022-01-31 11:41] LABS: Add Urine Microscopic? YES; Appearance Urine Cloudy (Clear); Bilirubin Urine Negative (Negative); Blood Urine 2+ (Negative); Color Urine Straw (Yellow); Glucose Urine UA Negative (Negative); Ketones Urine Negative (Negative); Leukocyte Esterase Ur 3+ LEU/UL (NEGATIVE); Nitrate Urine Negative (Negative); Protein Urine Negative (Negative); Specific Grav Ur 1.005 (1.001-1.035); Squamous Epithelial Cell Urine Rare /hpf (Few); Urobilinogen Urine Negative mg/dL (<2.0); WBC Urine >75 /hpf (0-3)
== END 2022-01-31 10:37 | disposition home or self-care (01) ==
PROVIDERS: PCP Physician Assistant; Visit Provider Physician Assistant
DX: R30.0 Dysuria (principal)
CPT/HCPCS: 81001; 87086

== ENCOUNTER 2022-08-06 07:55 | Outpatient (CLI) | payer MEDICARE, BC, SELFPAY ==
[2022-08-06 08:42] LABS: Basophils Percent Auto 0.7 % (0.2-1.2); Eosinophils Absolute Auto 0.1 K/mm3 (0-0.3); Eosinophils Percent Auto 2.4 % (0-4.4); Hematocrit 41.4 % (37.0-47.0); Hemoglobin 13.4 g/dL (12.0-15.0); Immature Granulocyte Absolute 0.01 K/mm3 (0.00-0.031); Immature Granulocyte Percent A 0.2 % (0-0.5); Lymphocytes Absolute Auto 1.52 K/mm3 (0.9-3.2); Lymphocytes Percent Auto 36.7 % (18.3-44.2); Mean Corpuscular HGB Conc 32.4 g/dl (32-36); Mean Corpuscular Hemoglobin 32.6 pg (26-34); Mean Corpuscular Volume 100.7 fl (80-100); Mean Platelet Volume 10.6 fl (7.4-10.4); Monocytes Absolute Auto 0.3 K/mm3 (0.1-0.6); Monocytes Percent Auto 7.5 % (2.6-8.5); Neutrophils Absolute Auto 2.2 K/mm3 (1.3-6.7); Neutrophils Percent Auto 52.5 % (45.5-73.1); Platelet Count Result 152 k/mm3 (150-375); Red Blood Count 4.11 M/mm3 (4.2-5.4); Red Cell Distribution Width 13.2 % (11.5-14.5); White Blood Count 4.1 K/mm3 (4.5-10.0)
[2022-08-06 08:53] LABS: Alanine Aminotransferase 19 U/L (6-35); Albumin Level 4.3 g/dL (3.5-5.1); Alkaline Phosphatase 66 U/L (38-126); Anion Gap 4 mmol/L (8-16); Aspartate Amino Transferase 27 U/L (14-36); Bilirubin,Total 0.7 mg/dL (0.2-1.3); Blood Urea Nitrogen 19 mg/dL (7-17); Calcium 9.1 mg/dL (8.4-10.2); Carbon Dioxide 33 mmol/L (22-30); Chloride 103 mmol/L (98-107); Cholesterol 169 mg/dL (0-200); Estimated Glomerular Filt Rate 52; Glucose 90 mg/dL (65-110); HDL Direct 79 mg/dL; Potassium 3.8 mmol/L (3.4-5.0); Sodium 140 mmol/L (137-145); Triglycerides 81 mg/dL (<150)
[2022-08-06 09:03] LABS: LDL Cholesterol Direct 58 mg/dL
[2022-08-06 09:14] LABS: Free T4 Free Thyroxine 1.03 ng/mL (0.78-2.19)
[2022-08-06 09:58] LABS: Folic Acid 15.8 ng/mL (2.76->20)
== END 2022-08-06 07:56 | disposition home or self-care (01) ==
LOC: ANHLAB 07:59
PROVIDERS: PCP Physician Assistant; Visit Provider Physician Assistant
DX: R53.83 Other fatigue (principal); E78.5 Hyperlipidemia, unspecified; E03.9 Hypothyroidism, unspecified
CPT/HCPCS: 36415; 80053; 80061; 82607; 82746; 84439; 84443; 85025

== ENCOUNTER → 2023-03-08 14:12 | Outpatient (CLI) | payer MEDICARE, BC, SELFPAY ==
--- NOTE | ~2023-03-08 | DEXA_ITS ---
Bone Density Report Name: PAGE HOLM Age: 87 Sex: Female Ethnicity: White Date of : 1935 Indication: postmenopausal; screening for osteoporosis; height loss; hysterectomy; Referring Provider: Sohail Martínez Study: Bone densitometry was performed. Exam Date: March 08, 2023 Accession number: [id number] Bone Density: Region BMD T-score Z-score Classification AP Spine (L1, L3) 0.942 -0.6 2.1 Normal Femoral Neck (Left) 0.590 -2.3 0.2 Osteopenia Total Hip (Left) 0.746 -1.6 0.7 Osteopenia Femoral Neck (Right) 0.572 -2.5 0.0 Osteoporosis Total Hip (Right) 0.708 -1.9 0.4 Osteopenia Total Hip Mean 0.727 -1.8 0.6 Osteopenia World Health Organization criteria for BMD impression classify patients as: Normal (T-score at or above -1.0), Osteopenia (T-score between -1.0 and -2.5), or Osteoporosis (T-score at or below -2.5). 10-year Fracture Risk: FRAX not reported because: Some T-score for Spine Total or Hip Total or Femoral Neck at or below -2.5 Clinical Information Provided by Patient: Has the following medical conditions: Hysterectomy Patient maximum height was 61.5 Menopause Age: 40 Drinks caffeinated beverages Onset of menses at age 12 Number of children 3 Impression: The patient has osteoporosis, based on the Right Femoral Neck T-score. Discussion: INCREASED RISK OF FRACTURE. BONE DENSITY IS UNDESIRABLY LOW AT ONE OR MORE SKELETAL SITES, CONSISTENT WITH POSTMENOPAUSAL OSTEOPOROSIS. This patient's lowest T-score meets the World Health Organization's (WHO) criteria for osteoporosis at one or more sites (T-score -2.5 or below). In untreated patients, the risk of osteoporotic fracture increases approximately two-fold for each 1.0 SD decrease in T-score. Low bone density is not the only risk factor for fracture; also consider factors such as patient's age, frailty or poor health, risk of falling, risk of injury, previous osteoporotic fracture, family history of osteoporosis, cigarette smoking, low body weight, etc. Not everyone with low bone mineral density has osteoporosis; osteomalacia and other metabolic bone disorders should also be considered. Patients who have osteoporosis should be evaluated for specific diseases and conditions (secondary causes) that may cause or contribute to bone loss. The [place] Association of Clinical Endocrinologists (AACE) and National Osteoporosis Foundation (NOF) recommend pharmacologic intervention for all postmenopausal women whose T-score is in this range. The patient should follow a healthful lifestyle (good nutrition with adequate calcium and vitamin D, and appropriate weight-bearing exercise). Follow-Up: Consider a repeat BMD and Vertebral Fracture Assessment (VFA) exam in 2 years or sooner if medically necessary, to reassess this patient's status. Re
== END ==
PROVIDERS: PCP Physician Assistant; Visit Provider Physician Assistant
DX: Z78.0 Asymptomatic menopausal state (principal); M85.852 Other specified disorders of bone density and structure, left thigh; M85.851 Other specified disorders of bone density and structure, right thigh; M81.0 Age-related osteoporosis without current pathological fracture
CPT/HCPCS: 77080

== ENCOUNTER 2023-04-18 09:46 | Emergency (ER) | payer MEDICARE, BC, SELFPAY ==
[2023-04-18] VITALS (15 sets, daily range): BP systolic 125–183; BP diastolic 58–100; PULSE 76–100; RESP 13–28; TEMP 36.7; O2SAT 93–100
--- NOTE | ~2023-04-18 | CT_ITS ---
EXAMINATION: CTA brain carotid DATE: 04/18/2023 14:31 INDICATION: Headache. Cerebral vascular accident. TECHNIQUE: Computed tomographic angiography (CTA) of the head was performed with 100 mL Omnipaque-350 intravenous contrast. CTA of the neck was performed with intravenous contrast. Automated exposure co ntrol and iterative reconstruction technique were employed. The dose-length product was 830.50 mGy-cm . Maximum intensity projection and volume rendered 3D-reconstructions were created by the [employer] t on a separate workstation. COMPARISON: Head CT 04/18/2023 FINDINGS: HEAD CTA: There are old infarcts involving the left basal ganglia and anterior limb left internal cap olegario. There is no intracranial hemorrhage, acute infarction, or abnormal intracranial mass lesion. Th e ventricles are normal in size. There are likely changes of ocular lens replacement surgeries. There is mild mucosal thickening in the paranasal sinuses. There are small bilateral mastoid effusions. Th e vertebral arteries are codominant. There is no significant stenosis of basilar artery or the bench assembly inspector ior cerebral arteries. There is no significant stenosis of the intracranial internal carotid arteries or middle cerebral arteries. 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 There is moderate stenosis of proximal left A1 anterior cerebral artery segment. Anterior co mmunicating artery is normal. The posterior communicating arteries are normal. NECK CTA: There is mild scarring at the lung apices. There are no pathologically enlarged lymph nodes . There is no significant stenosis of the vertebral arteries. There is plaque in the proximal interna l carotid arteries. There is 0% stenosis of the proximal right internal carotid artery relative to no rmal distal artery lumen diameter (NASCET criteria). There is 0% stenosis of the proximal left newsroom intern al carotid artery relative to normal distal artery lumen diameter. IMPRESSION: 1. Old infarcts involving the left basal ganglia and anterior limb left internal capsule. 2. Moderate stenosis of proximal left A1 anterior cerebral artery segment. 3. 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 4. 0% stenosis of the proximal internal carotid arteries relative to normal distal artery lumen diame ters (NASCET criteria). Reviewed, dictated and finalized at location A. CAR OPERATOR IMPRESSION: 1. Old infarcts involving the left basal ganglia and anterior limb left interna l capsule. 2. Moderate stenosis of proximal left A1 anterior cerebral artery segment. 3. 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 4. 0% stenosis of the proximal internal carotid arteries relative to normal dis jewels artery lumen diameters (NASCET criteria).
--- NOTE | ~2023-04-18 | CT_ITS ---
EXAMINATION: CT brain wo con DATE: 04/18/2023 11:07 INDICATION: Headache for 2 days TECHNIQUE: Computed tomography (CT) of the head was performed without intravenous contrast. The mA wa s adjusted according to patient size. Iterative reconstruction technique was employed. Exam dose: 60 5.33 mGy-cm total exam DLP. COMPARISON: 11/10/2021 CT brain FINDINGS: Bilateral carotid siphon internal carotid artery calcifications. There is nonspecific dimin ished attenuation of the cerebral white matter, likely due to chronic small vessel ischemic changes. There are chronic left basal ganglia and left periventricular lacunar infarcts. No intracranial mass lesion or hemorrhage or recent cerebrovascular accident is evident. No midline s hift or mass effect. No subdural or epidural hematoma is detected. The paranasal sinuses included in this examination are unremarkable other than mild patchy soft tissu e thickening the ethmoid air cells. No fracture or bone destruction of the cranial vault. IMPRESSION: Cerebral atherosclerosis and chronic small vessel ischemic changes of the cerebral white matter Chronic left basal ganglia and periventricular lacunar infarcts No acute intracranial finding Reviewed, dictated and finalized at Location A. Reviewed, dictated and finalized at location L. IR ORDER CLERK
[2023-04-18] MEDS: SODIUM CHLORIDE 0.9% IV 1,000 ML 999 ML IV CONT (10:45)
[2023-04-18] MEDS: ONDANSETRON INJ 4 MG/2 ML VIAL IV PUSH (10:46)
[2023-04-18] MEDS: MORPHINE SULFATE (*CRX) 4 MG/ML INJ IV PUSH (10:46)
[2023-04-18 10:51] LABS: Basophils Percent Auto 0.3 % (0.2-1.2); Eosinophils Absolute Auto 0.1 K/mm3 (0-0.3); Eosinophils Percent Auto 0.8 % (0-4.4); Hematocrit 42.7 % (37.0-47.0); Hemoglobin 13.7 g/dL (12.0-15.0); Immature Granulocyte Absolute 0.03 K/mm3 (0.00-0.031); Immature Granulocyte Percent A 0.4 % (0-0.5); Lymphocytes Absolute Auto 0.83 K/mm3 (0.9-3.2); Lymphocytes Percent Auto 10.4 % (18.3-44.2); Mean Corpuscular HGB Conc 32.1 g/dl (32-36); Mean Corpuscular Hemoglobin 32.2 pg (26-34); Mean Corpuscular Volume 100.2 fl (80-100); Monocytes Absolute Auto 0.9 K/mm3 (0.1-0.6); Monocytes Percent Auto 10.9 % (2.6-8.5); Neutrophils Absolute Auto 6.2 K/mm3 (1.3-6.7); Neutrophils Percent Auto 77.2 % (45.5-73.1); Platelet Count Result 143 k/mm3 (150-375); Red Blood Count 4.26 M/mm3 (4.2-5.4)
[2023-04-18 11:27] LABS: Influenza A QL RT-PCR Negative (Negative); Influenza B QL RT-PCR Negative (Negative); RSV RNA, RT-PCR Negative (Negative); SARS-CoV-2 RNA PCR Negative (Negative)
[2023-04-18 12:19] LABS: Alanine Aminotransferase 15 U/L (6-35); Albumin Level 3.8 g/dL (3.5-5.1); Alkaline Phosphatase 82 U/L (38-126); Anion Gap 7 mmol/L (8-16); Aspartate Amino Transferase 27 U/L (14-36); Bilirubin,Total 1.2 mg/dL (0.2-1.3); Blood Urea Nitrogen 11 mg/dL (7-17); Calcium 8.3 mg/dL (8.4-10.2); Carbon Dioxide 27 mmol/L (22-30); Chloride 105 mmol/L (98-107); Estimated CRCL calculation 32 ml/min; Estimated Glomerular Filt Rate > 60; Glucose 102 mg/dL (65-110); Potassium 3.6 mmol/L (3.4-5.0); Sodium 139 mmol/L (137-145)
[2023-04-18 14:13] LABS: Bacteria Urine None Seen /hpf; Bilirubin Urine Negative (Negative); Blood Urine 2+ (Negative); Color Urine Yellow (Yellow); Glucose Urine UA Negative (Negative); Ketones Urine 1+ mg/dL (Negative); Leukocyte Esterase Ur Negative LEU/UL (Negative); Nitrate Urine Negative (Negative); Non Pathogenic Casts 0-2; Protein Urine Negative (Negative); Specific Grav Ur 1.007 (1.001-1.035); Squamous Epithelial Cell Urine None seen /hpf (Few); Urobilinogen Urine 0.2 mg/dL (<2.0); WBC Urine 0-5 /hpf; pH Urine 6.5 (5.0-9.0)
[2023-04-18 14:18] LABS: Add Urine Microscopic? YES; Appearance Urine Clear (Clear)
--- NOTE | 2023-04-18 14:31 | ED.HA ---
HPI - Headache General Chief Complaint: Headache Stated Complaint: HEADACHE X3D Time Seen by Provider: 04/18/23 10:17 History of Present Illness HPI Narrative: Patient is an 87-year-old female who presents ER with headache. Ongoing for 3 days. Sling developing. On postop day. No trauma. No change in vision or hearing. No upper lower extremity numbness or weakness. She has taken aspirin with temporary improvement. Patient felt as though she had some body aches proceeding this few days ago. No fevers or chills or sweats. No meningismus. Related Data Home Medications Medication Instructions Recorded Confirmed acetaminophen 325 mg tablet See Rx Instructions .Route 11/15/21 12/16/22 .COMPLEX PRN Pain Allergies Allergy/AdvReac Type Severity Reaction Status Date / Time No Known Allergies Allergy NONE Verified 04/18/23 10:35 Review of Systems Review of Systems: All systems reviewed & are unremarkable except as noted in HPI and below Constitutional: Constitutional: Denies chills, Denies fatigue and Denies fever(s) Eyes: Eyes: Denies change in vision and Denies photophobia ENT: Denies nasal congestion and Denies sore throat Cardiovascular: Cardiovascular: Reports no additional cardiovascular complaints Respiratory: Respiratory: Reports no additional respiratory complaints Musculoskeletal: Musculoskeletal: Denies back pain, Denies arthralgias and Denies joint swelling [facility] Past Medical History Medical History Aphasia as late effect of cerebrovascular accident Arthritis At risk for falling Chronic idiopathic constipation Constipation CVA (cerebral vascular accident) Dysarthria Dysuria Elevated liver enzymes 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 Daughter is involved and will provide assistance. Smoking status: Never smoker Second hand tobacco smoke exposure: Yes Alcohol intake: never Substance use: never Substance use type: does not use Lack of Transportation: No Lack of Food: Never True Current Housing: I Have Housing Concerned About Future Housing: No Difficulty Paying Gas/Electric Bills: No Difficulty Paying for Meds: No Currently Unemployed: No Education: High School Diploma/GED Difficulty w/ Childcare or Family Care: No Living arrangements: with family Occupation/Education: retired Gender identity (if verbalized by the patient): Female Exam Narrative: GENERAL: Well-appearing, well-nourished, and in no acute distress. HEAD: Normocephalic, atraumatic. EYES: PERRL and EOMI. ENT: Mucous membranes moist. NECK: Supple. Full range of motion that is painless. No paraspinal muscle or midline cervical tenderness. CHEST: Clear to auscultation. No respiratory distress. HEART: Regular rate and rhythm. Normal peripheral pulses. ABDOMEN: Soft, nontender, nondistended EXTREMITIES: Normal range of motion. No edema. SKIN: Warm, dry, no rash. NEURO: Alert and oriented x3. PSYCH: Normal mood and affect. Course Course Emergency Course: Discussed lab and imaging results with patient and family. I have
[2023-04-18] MEDS: KETOROLAC 15 MG/ML VIAL (*BKC) IV PUSH (14:32)
== END 2023-04-18 17:14 | disposition home or self-care (01) ==
PROVIDERS: Emergency Provider Emergency Medicine; PCP Physician Assistant
DX: R51.9 Headache, unspecified (principal); Z20.822 Contact with and (suspected) exposure to COVID-19; I69.920 Aphasia following unspecified cerebrovascular disease; I69.951 Hemiplegia and hemiparesis following unspecified cerebrovascular disease affecting right dominant side; E78.5 Hyperlipidemia, unspecified; E03.9 Hypothyroidism, unspecified; K59.04 Chronic idiopathic constipation; M17.0 Bilateral primary osteoarthritis of knee; G25.81 Restless legs syndrome; Z90.711 Acquired absence of uterus with remaining cervical stump; I67.2 Cerebral atherosclerosis; I66.12 Occlusion and stenosis of left anterior cerebral artery; I67.1 Cerebral aneurysm, nonruptured
CPT/HCPCS: 36415; 70450; 70496; 70498; 80053; 81001; 85025; 87637; 96361; 96374; 96375; 99284; J1885; J2270; J2405; J7030; Q9967

== ENCOUNTER 2023-06-06 12:01 | Outpatient (CLI) | payer MEDICARE, BC, SELFPAY ==
[2023-06-06 12:52] LABS: Appearance Urine Cloudy (Clear); Bacteria Urine 1+ /hpf; Bilirubin Urine Negative (Negative); Color Urine Yellow (Yellow); Glucose Urine UA Negative (Negative); Ketones Urine Negative (Negative); Leukocyte Esterase Ur 3+ LEU/UL (NEGATIVE); Need Manual Microscopic Reviewed; Nitrate Urine Negative (Negative); Non Pathogenic Casts 0-2; Protein Urine Negative (Negative); Specific Grav Ur 1.007 (1.001-1.035); Squamous Epithelial Cell Urine None seen /hpf (Few); Urobilinogen Urine 0.2 mg/dL (<2.0); WBC Clumps Urine Present /HPF; WBC Urine >100 /hpf (0-3)
[2023-06-06 12:53] LABS: Add Urine Microscopic? YES
== END 2023-06-06 12:02 | disposition home or self-care (01) ==
PROVIDERS: PCP Physician Assistant; Visit Provider Physician Assistant
DX: R30.0 Dysuria (principal)
CPT/HCPCS: 81001; 87077; 87086; 87088; 87186

== ENCOUNTER 2023-06-20 13:09 | Outpatient (CLI) | payer MEDICARE, BC, SELFPAY ==
--- NOTE | 2023-06-20 13:20 | ECHO_ITS ---
Patient Info Name: Anuradha Hager Age: 87 years : 1935 Gender: Female Ht: 61 in Wt: 102 lbs BSA: 1.41 m2 HR: 67 bpm BP: 128 / 72 mmHg Technical Quality: Good Exam Date: 06/20/2023 1:25 PM Exam Location: Echo Lab Patient Status: Outpatient Admit Date: 06/20/2023 Staff Ordering Physician: Sohail Martínez PA-C Advice Line Rn: Attending Provider: Sohail Martínez PA-C Referring Physician: Tanya GARCIA; Exam Type: CA echo doppler color flow Study Info Complete two-dimensional, color flow and Doppler transthoracic echocardiogram is performed. Summary 1. Complete two-dimensional, color flow and Doppler transthoracic echocardiogram is performed. 2. Left ventricular chamber dimension is normal. 3. Left ventricular systolic function is normal, estimated at 60-65%. 4. The left ventricular diastolic function is grade I diastolic dysfunction. 5. E/e' 13 is mildly elevated. 6. There is mild aortic valve sclerosis. 7. There is mild to moderate mitral valve regurgitation. 8. There is mild tricuspid valve regurgitation. 9. No pulmonary hypertension, estimated pulmonary arterial systolic pressure is 30 mmHg. Left Ventricle E/e' 13 is mildly elevated. Left ventricular chamber dimension is normal. Left ventricular systolic function is normal, estimated at 60-65%. The left ventricular diastolic function is grade I diastolic dysfunction. Right Ventricle Right ventricular systolic function is normal and with normal TAPSE 2.1 cm. Right ventricular chamber dimension is normal. Left Atria Left atrial chamber dimension is normal. Right Atria Right atrial chamber dimension is normal. Aortic Valve The aortic valve is trileaflet. There is mild aortic valve sclerosis. There is no aortic valve stenosis. There is no aortic valve regurgitation. Pulmonic Valve There is no pulmonic regurgitation. Mitral Valve There is no mitral valve stenosis. There is mild to moderate mitral valve regurgitation. Tricuspid Valve There is mild tricuspid valve regurgitation. No pulmonary hypertension, estimated pulmonary arterial systolic pressure is 30 mmHg. Pericardium/Pleural There is no pericardial effusion. Inferior Vena Cava Normal inferior vena cava with >50% collapse upon inspiration consistent with normal right atrial pressure, 5 mmHg. Aorta The aortic root size at the sinus of Valsalva is normal. Left Ventricular Outflow Tract Name Value Normal LVOT 2D LVOT Diameter 2.0 cm LVOT Doppler LVOT Peak Gradient 7 mmHg LVOT Mean Gradient 3 mmHg LVOT VTI 25 cm LVOT VTI/AV VTI Ratio 0.7 LVOT Stroke Volume 76 ml LVOT CO 4.6 l/min LVOT CI 3.3 l/min/m2 Pulmonic Valve Name Value Normal PV Doppler PV Peak Gradient 2 mmHg Mitral V
== END 2023-06-20 13:10 | disposition home or self-care (01) ==
LOC: ANHCARD 13:11
PROVIDERS: PCP Physician Assistant; Visit Provider Physician Assistant
DX: I63.9 Cerebral infarction, unspecified (principal); I34.0 Nonrheumatic mitral (valve) insufficiency; I36.1 Nonrheumatic tricuspid (valve) insufficiency
CPT/HCPCS: 93306

== ENCOUNTER 2023-08-12 07:56 | Outpatient (CLI) | payer MEDICARE, BC, SELFPAY ==
[2023-08-12 08:30] LABS: Basophils Percent Auto 0.7 % (0.2-1.2); Eosinophils Absolute Auto 0.1 K/mm3 (0-0.3); Eosinophils Percent Auto 2.3 % (0-4.4); Hematocrit 43.3 % (37.0-47.0); Hemoglobin 13.7 g/dL (12.0-15.0); Immature Granulocyte Absolute 0.01 K/mm3 (0.00-0.031); Immature Granulocyte Percent A 0.2 % (0-0.5); Lymphocytes Absolute Auto 1.75 K/mm3 (0.9-3.2); Lymphocytes Percent Auto 40.5 % (18.3-44.2); Mean Corpuscular HGB Conc 31.6 g/dl (32-36); Mean Corpuscular Hemoglobin 32.6 pg (26-34); Mean Corpuscular Volume 103.1 fl (80-100); Mean Platelet Volume 10.2 fl (7.4-10.4); Monocytes Absolute Auto 0.3 K/mm3 (0.1-0.6); Monocytes Percent Auto 6.7 % (2.6-8.5); Neutrophils Absolute Auto 2.1 K/mm3 (1.3-6.7); Neutrophils Percent Auto 49.6 % (45.5-73.1); Platelet Count Result 170 k/mm3 (150-375); Red Cell Distribution Width 13.2 % (11.5-14.5); White Blood Count 4.3 K/mm3 (4.5-10.0)
[2023-08-12 08:55] LABS: Alanine Aminotransferase 15 U/L (6-35); Albumin Level 4.4 g/dL (3.5-5.1); Alkaline Phosphatase 75 U/L (38-126); Anion Gap 6 mmol/L (4-12); Aspartate Amino Transferase 31 U/L (14-36); Bilirubin,Total 0.6 mg/dL (0.2-1.3); Blood Urea Nitrogen 12 mg/dL (7-17); Calcium 9.6 mg/dL (8.4-10.2); Carbon Dioxide 30 mmol/L (22-30); Chloride 105 mmol/L (98-107); Cholesterol 161 mg/dL (0-200); Estimated Glomerular Filt Rate > 60; Glucose 88 mg/dL (65-110); HDL Direct 85 mg/dL; Potassium 3.9 mmol/L (3.4-5.0); Sodium 141 mmol/L (137-145); Triglycerides 100 mg/dL (<150)
[2023-08-12 09:05] LABS: LDL Cholesterol Direct 64 mg/dL
[2023-08-12 10:05] LABS: Folic Acid > 20.0 ng/mL (2.76->20)
== END 2023-08-12 07:57 | disposition home or self-care (01) ==
PROVIDERS: PCP Physician Assistant; Visit Provider Physician Assistant
DX: E78.5 Hyperlipidemia, unspecified (principal); R53.83 Other fatigue; E55.9 Vitamin D deficiency, unspecified; E03.9 Hypothyroidism, unspecified
CPT/HCPCS: 36415; 80053; 80061; 82306; 82607; 82746; 84443; 85025

== ENCOUNTER 2023-09-23 13:11 | Outpatient (CLI) | payer MEDICARE, BC, SELFPAY ==
[2023-09-23 14:17] LABS: Appearance Urine Clear (Clear); Bacteria Urine None Seen /hpf; Bilirubin Urine Negative (Negative); Blood Urine Negative (Negative); Color Urine Yellow (Yellow); Glucose Urine UA Negative (Negative); Ketones Urine Negative (Negative); Leukocyte Esterase Ur 2+ LEU/UL (Negative); Nitrate Urine Negative (Negative); Non Pathogenic Casts 0-2; Protein Urine Negative (Negative); RBC Urine 0-2 /hpf (0-2); Specific Grav Ur 1.015 (1.001-1.035); Squamous Epithelial Cell Urine None Seen /hpf (Few); Urobilinogen Urine 0.2 mg/dL (<2.0)
[2023-09-23 14:56] LABS: Add Urine Microscopic? YES
== END 2023-09-23 13:12 | disposition home or self-care (01) ==
LOC: ANHLAB 13:16
PROVIDERS: PCP Physician Assistant; Visit Provider Physician Assistant
DX: R30.0 Dysuria (principal)
CPT/HCPCS: 81001; 87086; 87088

== ENCOUNTER 2024-02-12 04:38 | Emergency (ER) | payer MEDICARE, BC, SELFPAY ==
--- NOTE | ~2024-02-12 | XR_ITS ---
AP view of the pelvis and AP and lateral views of the left hip Clinical history: Pain Findings: No acute fracture or dislocation is seen. Osseous alignment is anatomic. Bilateral hip and SI joint spaces are preserved. There is osteitis pubis. There is degenerative change of the lower lum bar spine. Soft tissues are unremarkable. Impression: Degenerative changes, as above. Reviewed, dictated and finalized at location M. R POLISHING WORKER Impression: Degenerative changes, as above.
[2024-02-12 04:39] VITALS: BP 179/106; PULSE 62; RESP 11; TEMP 36.4; O2SAT 100
[2024-02-12] MEDS: HYDROcodone/acetaminophen (*CRX) 5-325 MG TABLET 1 TAB PO (05:04)
--- NOTE | 2024-02-12 05:52 | ED.EXTPRO ---
HPI - Extremity Problem General Chief complaint: Extremity Problem,Nontraumatic Stated complaint: L hip pain Time Seen by Provider: 02/12/24 04:48 History of Present Illness HPI Narrative: 88-year-old female presents to the emergency department for evaluation for left hip pain. Patient states she has had chronic right hip pain for long time but recently has developed left hip pain. Patient denies any falls or injury. Patient reports pain in her left lower back that does radiate into her buttock. Patient denies any loss of bowel or bladder control. Related Data Home Medications Medication Instructions Recorded Confirmed acetaminophen 325 mg tablet See Rx Instructions .Route 11/15/21 09/25/23 .COMPLEX PRN Pain Allergies Allergy/AdvReac Type Severity Reaction Status Date / Time No Known Allergies Allergy NONE Verified 09/25/23 13:08 Review of Systems Review of Systems: All systems reviewed & are unremarkable except as noted in HPI and below PMFSH Past Medical History Medical History Aphasia as late effect of cerebrovascular accident Arthritis At risk for falling Chronic idiopathic constipation Constipation CVA (cerebral vascular accident) Dysarthria Dysuria Elevated liver enzymes 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 Daughter is involved and will provide assistance. Smoking status: Never smoker Second hand tobacco smoke exposure: Yes Alcohol intake: never Substance use: never Substance use type: does not use Lack of Transportation: No Lack of Food: Never True Current Housing: I Have Housing Concerned About Future Housing: No Difficulty Paying Gas/Electric Bills: No Difficulty Paying for Meds: No Currently Unemployed: No Education: High School Diploma/GED Difficulty w/ Childcare or Family Care: No Living arrangements: with family Occupation/Education: retired Gender identity (if verbalized by the patient): Female Exam Narrative: APPEARANCE: Well appearing, no pain, no distress, well-nourished. HEAD: normocephalic, atraumatic. EYES: PERRLA/EOMI, conjunctivae clear. NOSE: Normal no drainage EARS:TMS clear with good light reflex. THROAT: Pharynx clear, no exudate. NECK: Supple. No adenopathy, no masses. RESPIRATORY: Airway patent, respirations nonlabored. Clear to auscultation bilaterally, no rales, rhonchi, wheezing. CARDIOVASCULAR: Regular rate and rhythm without murmurs rubs or gallops. ABDOMINAL: Soft, nontender, nondistended, normal bowel sounds MUSCULOSKELETAL: Moves all extremities. Strength/ROM intact, No edema, No calf tenderness. NEURO: Alert. Cranial nerves II through XII intact. Grossly intact SKIN: Warm, dry. Normal Color Course Vital Signs Vital signs: Vital Signs Temperature 97.5 F L 02/12/24 04:39 Pulse Rate 62 02/12/24 04:39 Respiratory Rate 11 L 02/12/24 04:39 Blood Pressure 179/106 H 02/12/24 04:39 Pulse Oximetry 100 02/12/24 04:39 Oxygen Delivery Room Air 02/12/24 04:39 Temperature 97.5 F L 02/12/24 04:39 Pulse Rate 60 02/12/24 06:30 Respiratory Rate 14 02/12/24 06:30 Blood Pressure 171/92 H 02/12/24 06:30 Pulse Oximetry 100 02/12/24 06:30 Oxygen Delivery Room Air 02/12/24 04:39 MDM - Extremity (Nontraumatic) MDM Narrative Medical decision making narrative: 88-year-old female presenting to emergency department for evaluation for left lower back and hip pain. X-ray was negative for acute fracture dislocation. Patient was treated with [place] for pain control reports she does feel significantly improved. Patient was willing to ambulate. patient family were updated on the results of the workup. All questions concerns were addressed patient was well-appearing at time of discharge. Differential Diagnosis Differential diagnosis: Likely other ( Hip strain, hip fracture, hip contusion) Discharge Plan Discharge Clinical Impression: Sciatica Patient Disposition: Home, Self-Care Condition: Stable Instructions: Antibiotic Form, Sciatica (ED), Acute Low Back Pain (ED) Additional Instructions: Medrol Dosepak as directed until completed. Tylenol for pain control, if you need additional pain control replace the Tylenol with [place]. Do not take Tylenol and [place] at the same time as both contain acetaminophen. Have close follow-up with your primary care physician. Prescriptions: New hydrocodone-acetaminophen 5-325 mg tablet 1 tablet PO Q12H PRN (Reason: pain) Qty: 14 0RF methylprednisolone [Medrol (Phani)] 4 mg tablets,dose pack See Rx Instructions .ROUTE .COMPLEX Qty: 21 0RF Rx Instructions: for 6 days hydrocodone-acetaminophen 5-325 mg tablet 1 tablet PO Q12H PRN (Reason: pain) Qty: 10 0RF No Action meclizine 12.5 mg tablet 12.5 mg PO TID PRN (Reason: dizziness) Qty: 30 1RF levothyroxine 50 mcg tablet 50 mcg PO DAILY Qty: 90 1RF lisinopril 20 mg tablet 20 mg PO DAILY Qty: 90 1RF atorvastatin 40 mg tablet See Rx Instructions .ROUTE .COMPLEX Qty: 90 1RF Dose Instruction: TAKE 1 TABLET DAILY Rx Instructions: TAKE 1 TABLET DAILY aspirin 325 mg Tablet 325 mg PO DAILY@0800 Qty: 0 0RF acetaminophen 325 mg Tablet See Rx Instructions .ROUTE .COMPLEX PRN (Reason: Pain) Rx Instructions: Take as directed on bottle Follow-up/Referrals: Tanya,LARISSA CordovaC [Primary Care Provider] -
[2024-02-12 06:30] VITALS: BP 171/92; PULSE 60; RESP 14; O2SAT 100
== END 2024-02-12 06:31 | disposition home or self-care (01) ==
PROVIDERS: Emergency Provider Emergency Medicine; PCP Physician Assistant
DX: M54.42 Lumbago with sciatica, left side (principal); I69.920 Aphasia following unspecified cerebrovascular disease; I69.951 Hemiplegia and hemiparesis following unspecified cerebrovascular disease affecting right dominant side; I10 Essential (primary) hypertension; E78.5 Hyperlipidemia, unspecified; E03.9 Hypothyroidism, unspecified; M17.0 Bilateral primary osteoarthritis of knee; Z90.49 Acquired absence of other specified parts of digestive tract; Z90.711 Acquired absence of uterus with remaining cervical stump
CPT/HCPCS: 73502; 99283; A9270

== ENCOUNTER 2024-05-25 10:53 | Outpatient (CLI) | payer MEDICARE, BC, SELFPAY ==
[2024-05-25 11:23] LABS: Basophils Percent Auto 0.3 % (0.2-1.2); Eosinophils Absolute Auto 2.5 K/mm3 (0-0.3); Eosinophils Percent Auto 24.4 % (0-4.4); Hematocrit 38.9 % (37.0-47.0); Immature Granulocyte Absolute 0.07 K/mm3 (0.00-0.031); Immature Granulocyte Percent A 0.7 % (0-0.5); Lymphocytes Absolute Auto 0.91 K/mm3 (0.9-3.2); Lymphocytes Percent Auto 9.1 % (18.3-44.2); Mean Corpuscular HGB Conc 33.4 g/dl (32-36); Mean Corpuscular Hemoglobin 32.5 pg (26-34); Mean Corpuscular Volume 97.3 fl (80-100); Mean Platelet Volume 9.2 fl (7.4-10.4); Monocytes Absolute Auto 0.6 K/mm3 (0.1-0.6); Monocytes Percent Auto 5.9 % (2.6-8.5); Neutrophils Percent Auto 59.6 % (45.5-73.1); Platelet Count Result 150 k/mm3 (150-375); Red Cell Distribution Width 14.8 % (11.5-14.5); White Blood Count 10.1 K/mm3 (4.5-10.0)
[2024-05-25 11:33] LABS: Alanine Aminotransferase 167 U/L (6-35); Albumin Level 3.9 g/dL (3.5-5.1); Alkaline Phosphatase 234 U/L (38-126); Anion Gap 10 mmol/L (4-12); Aspartate Amino Transferase 102 U/L (14-36); Bilirubin,Total 1.2 mg/dL (0.2-1.3); Blood Urea Nitrogen 12 mg/dL (7-17); Calcium 9.4 mg/dL (8.4-10.2); Carbon Dioxide 30 mmol/L (22-30); Chloride 96 mmol/L (98-107); Cholesterol 108 mg/dL (0-200); Estimated Glomerular Filt Rate 49; Glucose 102 mg/dL (65-110); HDL Direct 23 mg/dL; Sodium 136 mmol/L (137-145); Triglycerides 125 mg/dL (<150)
[2024-05-25 11:44] LABS: LDL Cholesterol Direct 61 mg/dL
[2024-05-25 11:53] LABS: Add Urine Microscopic? YES; Appearance Urine Cloudy (Clear); Bacteria Urine None Seen /hpf; Bilirubin Urine 1+ (Negative); Blood Urine Negative (Negative); Color Urine Dark Yellow (Yellow); Glucose Urine UA Negative (Negative); Hyaline Casts Urine Present /lpf; Ketones Urine Trace mg/dL (Negative); Leukocyte Esterase Ur 1+ LEU/UL (Negative); Need Manual Microscopic Reviewed; Nitrate Urine Negative (Negative); Non Pathogenic Casts >20; Protein Urine 1+ mg/dL (Negative); Squamous Epithelial Cell Urine Moderate /hpf (Few); WBC Urine 0-5 /hpf (0-3); pH Urine 5.5 (5.0-9.0)
[2024-05-25 12:01] LABS: Vitamin D 25 Hydroxy 46.1 ng/mL
--- OUTSIDE RECORDS SUMMARY | 2024-05-25 13:59 | XMS_ITS | Clinical Summary ---
Author Organization [facility] Address [address] [address] [place] [address] Phone Care Team Providers Care Drupal Web Developer Name Role Phone Sohail Martínez Primary Care Provider Allergies No known active allergies Medications Synthroid 50 MCG Tablet 10/06/2019 Active lisinopril (PRINIVIL, ZESTRIL) 10 MG Tablet 10/06/2019 Active polyethylene glycol-electrol ytes (NULYTELY) 420 GM Recon Soln peg-electroly te solution 420 gram oral solution Active Multiple Vitamin (MULTI-VITAMIN PO) Take by mouth. Active linaCLOtide (LINZESS) 72 MCG Capsule Take 72 mcg by mouth every morning. 12/10/2019 Active other by Other route. Multi- collagen protein capsules, Pt takes 3x daily Active Active Problems Problem Noted Date Diagnosed Date Chronic idiopathic constipation 01/29/2020 Immunizations Immunization Administration Dates Next Due Influenza, Seasonal, Injecta ble, Undefined 12/15/2013,12/19/2012 Influenza, high-dose, trivalent, PF 01/06,01/01/2018,01/02/2017,2015,12/15/2014 Family History Medical History Relation Name Comments Heart Disease Maternal Aunt Heart Disease Mother Relation Name Status Comments Maternal Aunt Mother Social History Tobacco Use Types Packs/Day Years Used Date Smoking Tobacco: Never Smokeless Tobacco: Never Tobacco Cessation:Counseling Given: No Alcohol Use Standard Drinks/Week Comments Not Currently 0 (1 standard drink = 0.6 oz pur e alcohol) Sexually Active Control Partners Comments Not Currently Comments No Sex and Gender Information Value Date Recorded Sex Assigned at Not on file Legal Sex Female 3:56 PM CDT Gender Identity Not on file Sexual Orientation Not on file Last Filed Vital Signs Vital Sign Reading Time Taken Comments Blood Pressure 150/84 11/26/2019 10:50 AM CDT Pulse 60 11/26/2019 10:50 AM CDT Temperature 35.9 C (96.7 F) 11/26/2019 10:50 AM CDT Respiratory Rate 16 11/26/2019 10:50 AM CDT Oxygen Saturation 98% 11/26/2019 10:50 AM CDT Inhaled Oxygen Concentration - - Weight 52.6 kg (116 lb) 01/29/2020 10:40 AM CDT Height 154.9 cm (5' 1 ) 01/29/2020 10:40 AM CDT Body Mass Index 21.92 01/29/2020 10:40 AM CDT Plan of Treatment Health Maintenance Due Date Last Done Comments DEXA Bone Density 1935 Hepatitis C Virus (HCV) Screening 1935 TdaP Immunization 1935 Pneumococcal Immunization (50+ years) (1 of 1 - PCV) 1984 Zoster Immunization (1 of 2) 1984 Respiratory Syncytial Virus (RSV) Immunization (Adult) (1 - 1-dose 75+ series) 2009 Influenza Immunization (#1) 12/08/202301/06, 01/01/2018, 01/02/2017, Additional history exists SARS-COV-2 Immunization ( season) 2023 10/20/2021, 04/04/2021, 06/27/2020, Additional history exists Hepatitis B Immunization Aged Out No longer eligible based on patient's age to complete this topic Meningococcal Immunization (ACWY) Aged Out No longer eligible based on patient's age to complete this topic Rotavirus Immunization Aged Out No lo nger eligible based on patient's age to complete this topic Insurance MEDICARE [facility] Care Teams Drupal Web Developer Relationship Specialty Start Date End Date Sohail Martínez PAC [address] [place] [address] PCP - General Physician [employer] 11/12/19
--- OUTSIDE RECORDS SUMMARY | 2024-05-25 14:00 | XMS_ITS | Clinical Summary ---
Author Organization [facility] Address [address] [place] [address] Care Team Providers Care Guest Service Agent Name Role Phone Adan Mora MD Primary Care Provider [phone]- [phone] Allergies Active Allergy Reactions Criticality Noted Date Comments Lactose Unknown 10/19/2021 Medications atorvastatin (LIPITOR) 40 mg tabletIndicati ons:hyperlipid emia Take 1 tablet (40 mg total) by mouth daily 30 tablet 11 07/14/19 22 Active polyethylene glycol (MIRALAX) 17 gram packetIndicati ons:constipati on Take 1 packet (17 g total) by mouth daily 07/14/19 22 Active senna (SENOKOT) 8.6 mg tablet Take 1 tablet by mouth 2 (two) times a day 60 tablet 07/13/19 22 Active Additional Information Patient not taking.Reported on 10/19/2021 bisacodyL (DULCOLAX) 10 mg suppositoryInd ications:const ipation Insert 1 suppository (10 mg total) into the rectum daily as needed for constipation (Give if no BM for 2 days) 12 suppository 07/13/19 22 Active lisinopriL (PRINIVIL,ZEST RIL) 30 mg tablet Take 1 tablet (30 mg total) by mouth daily 30 tablet 11 07/14/19 22 Active rOPINIRole (REQUIP) 1 mg tablet 08/10/19 22 Active traZODone (DESYREL) 50 mg tablet Take 50 mg by mouth nightly at bedtime 09/12/19 22 Active acetaminophen (TYLENOL ORAL) Take by mouth A ctive aspirin 81 mg chewable tabletIndicati ons:cerebral ischemia,Cereb ral Ischemia Take 1 tablet (81 mg total) by mouth daily 30 tablet 11 11/16/19 22 Active levothyroxine (SYNTHROID) 75 mcg tablet Take 1 tablet (75 mcg total) by mouth cigar making machine supervisor before breakfast 11/16/19 22 Active hydrALAZINE (APRESOLINE) 25 mg tablet Take 1 tablet (25 mg total) by mouth 3 (three) times a day 11/15/19 22 Active Active Problems Problem Noted Date Diagnosed Date Stroke determined by clinical assessment 022 Cerebrovascular accident (CVA), unspecified [facility] 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 Social History Tobacco Use Types Packs/Day Years Used Date Smoking Tobacco: Never Smokeless Tobacco: Never PHQ-2 Answer Date Recorded PHQ-2 Total Score (If total score is 3 or more points, staff should administer the PHQ-9) 0 11/13/2021 Comments Unknown Sex and Gender Information Value Date Recorded Sex Assigned at Not on file Legal Sex Female 2:47 AM PROPERTY 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 Gender Identity Not on file Sexual Orientation Not on file Obstetrics History Last Filed Vital Signs Vital Sign Reading Time Taken Comments Blood Pressure 170/84 11/14/2021 3:50 PM CDT Pulse 70 11/14/2021 3:50 PM CDT Temperature 37.4 C (99.3 F) 11/14/2021 3:50 PM CDT Respiratory Rate 20 11/14/2021 3:50 PM CDT Oxygen Saturation 94% 11/14/2021 3:50 PM CDT Inhaled Oxygen Concentration - - Weight 49 kg (108 lb) 11/10/2021 8:50 PM CDT Height 154.9 cm (5' 1 ) 11/10/2021 8:50 PM CDT Body Mass Index 20.41 11/10/2021 8:50 PM CDT Plan of Treatment Health Maintenance Due Date Last Done Comments DTaP/Tdap/Td Vaccine (1 - Tdap) 1946 Hepatitis B Screening 1953 Pneumococcal vaccine 65+ (1 of 1 - PCV) 1984 Well Visit 65+ 09/18/1999 Depression Screening 11/10/2022 11/10/2021, 07/10/19 22 Fall Risk Assessment 11/14/2022 11/14/2021 Covid-19 Vaccine (2023-2 5 season) 2023 04/04/2021, 06/27/2020, 05/26/2020 Influenza Vaccine (#1) 2023 , 01/29/2020, 01/16/2019, Additional history exists Zoster Vaccine Completed 04/20/2020, 02/17/2020 Insurance MEDICARE [facility] MEDICARE [place] [place] [employer] [place] [place] Advance Directives For more information, please contact: [phone] Documents on File Type Date Recorded Patient Glassware Verifier Expl anation ADVANCE DIRECTIVE 07/12/2021 7:39 AM POWER OF PARKING WORKER-MEDICAL * Full Code (Latest Code Status on File) Date Activated Date Inactivated Comments 11/10/2021 8:42 PM 11/14/2021 11:24 PM * Full Code Date Activated Date Inactivated Comments 07/09/2021 6:14 PM 07/12/2021 10:11 PM Care Teams Guest Service Agent Relationship Specialty Start Date End Date Adan Mora MD [address] [facility] [address] [place] [address] PCP - General Internal Medicine 08/03/21
--- OUTSIDE RECORDS SUMMARY | 2024-05-25 14:00 | XMS_ITS | Referral Summary ---
Author Organization [facility] Address [address] [place] [address] Care Team Providers Care High School Hvac R Instructor Name Role Phone Adan Mora MD Primary Care Provider [phone]- [phone] Allergies Active Allergy Reactions Criticality Noted Date [...] 1 tablet (75 mcg total) by mouth forensic psychiatrist before breakfast 11/16/19 22 Active hydrALAZINE (APRESOLINE) 25 mg tablet Take 1 tablet (25 mg total) by mouth 3 (three) times a day 11/15/19 22 Active Active Problems Problem Noted Date Diagnosed Date Stroke determined by clinical assessment 022 Cerebrovascular accident (CVA), unspecified [facility] 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 Social History Tobacco Use Types Packs/Day Years Used Date Smoking Tobacco: Never Smokeless Tobacco: Never PHQ-2 Answer Date Recorded PHQ-2 Total Score (If total score is 3 or more points, staff should administer the PHQ-9) 0 11/13/2021 Comments Unknown Sex and Gender Information Value Date Recorded Sex Assigned at Not on file Legal Sex Female 2:47 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 Gender Identity Not on file Sexual Orientation [...] 11/10/2021 8:50 PM CDT Plan of Treatment Not on file Insurance MEDICARE [place] [employer] MED[employer] [employer] MED[employer] [place] [employer] Advance Directives For more information, please contact: [phone] Documents on File Type Date Recorded Patient Dowel Pin Worker Expl anation ADVANCE DIRECTIVE 07/12/2021 7:39 AM POWER OF MAT LINKER-MEDICAL * Full Code (Latest Code Status on File) Date Activated Date Inactivated Comments 11/10/2021 8:42 PM 11/14/2021 11:24 PM * Full Code Date Activated Date Inactivated Comments 07/09/2021 6:14 PM 07/12/2021 10:11 PM Care Teams High School Hvac R Instructor Relationship Specialty Start Date End Date Adan Mora MD [address] [facility] [address] [place] [address] PCP - General Internal Medicine 08/03/21
== END 2024-05-25 10:54 | disposition home or self-care (01) ==
PROVIDERS: PCP Internal Medicine; Visit Provider Internal Medicine
DX: E78.5 Hyperlipidemia, unspecified (principal); E03.9 Hypothyroidism, unspecified; I10 Essential (primary) hypertension; R30.0 Dysuria; E55.9 Vitamin D deficiency, unspecified; R53.1 Weakness; R74.8 Abnormal levels of other serum enzymes
CPT/HCPCS: 36415; 80053; 80061; 81001; 82306; 83520; 84443; 85025; 87086

== ENCOUNTER 2024-05-25 17:07 | Emergency (ER) | payer MEDICARE, BC, SELFPAY ==
[2024-05-25 17:35] VITALS: BP 103/60; PULSE 96; RESP 20; TEMP 36.5; O2SAT 100
--- NOTE | 2024-05-25 17:52 | ED_ITS ---
HPI - URI/Sore Throat General Chief Complaint: Upper Respiratory Infection Stated Complaint: runny nose,cough, weakness Source: patient Mode of arrival: ambulatory Limitations: no limitations History of Present Illness HPI Narrative: 88-year-old female presented for complaint of nasal congestion, watery eyes and cough for about 6 weeks. Pt's pcp is aware of sx, pt had CXR 2 weeks ago and was seen in pcp office today. Pt is taking nasal spray and zyrtec, humidifier and saline spray. Daughter reports she appears short of breath with a lot of exertion, which is unusual for her. Eating and sleeping less for the past few days. Denies abdominal pain, chest pain, wheezing, vomiting or lethargy. Related Data Home Medications ?Medication ?Instructions ?Recorded ?Confirmed ?Last Taken ?Type acetaminophen 325 mg tablet See Rx Instructions .Route 11/15/21 05/25/24 Unknown History .COMPLEX PRN Pain Allergies Allergy/AdvReac Type Severity Reaction Status Date / Time No Known Allergies Allergy NONE Verified 05/25/24 09:56 Review of Systems Review of Systems: per HPI All systems reviewed & are unremarkable except as noted in HPI and below PMFSH Past Medical History Medical History BMI 20.0-20.9, adult Other fatigue Sciatica of right side Primary osteoarthritis of both knees Pre-op exam Paresthesias Pain in unspecified knee Nocturia Herpes zoster without complication Essential hypertension Colon cancer screening Abnormal urinalysis Arthritis SOB (shortness of breath) Vision changes History of small bowel obstruction Left knee DJD Right knee DJD Elevated liver enzymes Pain of right lower extremity Restless leg syndrome Constipation Dysarthria Aphasia as late effect of cerebrovascular accident 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 Mother Heart disease Social History Social History Social History: patient lives alone in a single-level home. Daughter is involved and will provide assistance. 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 Please see nursing chart for further information. There is no relevant family history pertinent to the presenting complaint Exam Narrative: GENERAL: chronically ill-appearing, in no acute distress. EYES: Bilateral eyes watery. Conjunctivae normal. ENT: Mucous membranes pink and moist. nasal congestion noted. CHEST: No respiratory distress. Right lung coarse clears with cough HEART: Regular rate and rhythm. No murmur appreciated. SKIN: Warm, dry, scattered erythematous patches to body surface, flat, nontender. Capillary refill normal. NEURO: Alert and oriented x3. Gait steady. PSYCH: Normal affect. Course Course Emergency Course: Patient is aware of diagnosis, understands and agrees to treatment plan. Anticipatory guidance given. Patient agrees to follow-up as directed and is aware of reasons to seek care at the emergency department. Portions of this record may have been created with voice recognition software Level of Care: Express Care Visit Vital Signs Vital signs: Vital Signs Temperature 97.7 F 05/25/24 17:35 Pulse Rate 96 05/25/24 17:35 Respiratory Rate 20 05/25/24 17:35 Blood Pressure 103/60 05/25/24 17:35 Pulse Oximetry 100 05/25/24 17:35 Oxygen Delivery Room Air 05/25/24 17:35 Temperature 97.7 F 05/25/24 17:35 Pulse Rate 96 05/25/24 17:35 Respiratory Rate 20 05/25/24 17:35 Blood Pressure 103/60 05/25/24 17:35 Pulse Oximetry 100 05/25/24 17:35 Oxygen Delivery Room Air 05/25/24 17:35 MDM - URI/Sore Throat MDM Narrative Medical decision making narrative: Negative flu and COVID. Listened low-dose prednisone and an antibiotic for URI. Patient will follow-up regarding lab work with PCP. Differential Diagnosis Differential diagnosis: Likely upper respiratory infection, otitis media, sinusitis, viral infection, bronchitis, influenza, pharyngitis and other Discharge Plan Discharge Clinical Impression: Upper respiratory infection Patient Disposition: Home, Self-Care Condition: Stable Instructions: Antibiotic Form Additional Instructions: Take medication as directed. Recommendations: Flonase spray and Zyrtec (or Claritin/Dejah) over the counter Cough syrup may cause drowsiness; avoid driving or take it at night time. Tylenol every 8 hours as needed for pain rest, push fluids, and increase humidity of the air at home. Follow up with your primary care provider in 1 week. Go to the ER for worsening symptoms or concerns. Patient Language: [place] Prescriptions: New azithromycin [Zithromax Z-Phani] 250 mg tablet See Rx Instructions .ROUTE .COMPLEX Qty: 6 0RF Rx Instructions: For 250 mg dose pack: take 500 mg today (day 1), then 250 mg for 4 days (days 2-5) prednisone 20 mg tablet 20 mg PO DAILY Qty: 5 0RF No Action lisinopril 20 mg tablet 20 mg PO DAILY Qty: 90 2RF atorvastatin 40 mg tablet See Rx Instructions .ROUTE .COMPLEX Qty: 90 1RF Dose Instruction: TAKE 1 TABLET DAILY Rx Instructions: TAKE 1 TABLET DAILY levothyroxine 50 mcg tablet 50 mcg PO DAILY Qty: 90 2RF fluticasone propionate [Flonase Allergy Relief] 50 mcg/actuation spray,suspension 2 spray intranasal DAILY Qty: 16 3RF Rx Instructions: administer into each nostril aspirin 325 mg Tablet 325 mg PO DAILY@0800 Qty: 0 0RF acetaminophen 325 mg Tablet See Rx Instructions .ROUTE .COMPLEX PRN (Reason: Pain) Rx Instructions: Take as directed on bottle Follow-up/Referrals: Kenny Yepez DO [Primary Care Provider] - Time of Disposition: 18:02
[2024-05-25 17:55] LABS: EDCOVIDSCREEN Negative (Negative); EDINFLUASCREEN Negative (Negative); EDINFLUBSCREEN Negative (Negative)
--- OUTSIDE RECORDS SUMMARY | 2024-05-25 18:38 | XMS_ITS | Clinical Summary ---
Author Organization [facility] Address [address] [place] [address] Care Team Providers Care Managed Care Coordinator Name Role Phone Adan Mora MD Primary Care Provider +1- [phone] Allergies Active Allergy Reactions Criticality Noted Date [...] 1 tablet (75 mcg total) by mouth business employment specialist before breakfast 11/16/19 22 Active hydrALAZINE (APRESOLINE) 25 mg tablet Take 1 tablet (25 mg total) by mouth 3 (three) times a day 11/15/19 22 Active Active Problems Problem Noted Date Diagnosed Date Stroke determined by clinical assessment 022 Cerebrovascular accident (CVA), unspecified [facility] 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 Social History Tobacco Use Types Packs/Day Years Used Date Smoking Tobacco: Never Smokeless Tobacco: Never PHQ-2 Answer Date Recorded PHQ-2 Total Score (If total score is 3 or more points, staff should administer the PHQ-9) 0 11/13/2021 Comments Unknown Sex and Gender Information Value Date Recorded Sex Assigned at Not on file Legal Sex Female 2:47 AM DITCHER Gender Identity Not on file Sexual Orientation [...] Zoster Vaccine Completed 04/20/2020, 02/17/2020 Insurance MEDICARE [facility] Address: [address] [place] [address] MEDICARE [place] [employer] MED[employer] [place] [employer] Advance Directives For more information, please contact: [phone] Documents on File Type Date Recorded Patient Restorative Rehab Aide Expl anation ADVANCE DIRECTIVE 07/12/2021 7:39 AM POWER OF OVERHEAD DISTRIBUTION ENGINEER-MEDICAL * Full Code (Latest Code Status on File) Date Activated Date Inactivated Comments 11/10/2021 8:42 PM 11/14/2021 11:24 PM * Full Code Date Activated Date Inactivated Comments 07/09/2021 6:14 PM 07/12/2021 10:11 PM Care Teams Managed Care Coordinator Relationship Specialty Start Date End Date Adan Mora MD [address] [facility] [address] [facility] [address] [place] [address] PCP - General Internal Medicine 08/03/21
--- OUTSIDE RECORDS SUMMARY | 2024-05-25 18:38 | XMS_ITS | Clinical Summary ---
Author Organization [facility] Address [address] [facility], [facility] [address] [place] [address] Phone Care Team Providers Care Track Repair Person Name Role Phone Sohail Martínez Primary Care [...] age to complete this topic Insurance MEDICARE [facility] Care Teams Track Repair Person Relationship Specialty Start Date End Date Sohail Martínez PAC [address] [place] [address] PCP - General Physician Cheese Tester 11/12/19
--- OUTSIDE RECORDS SUMMARY | 2024-05-25 18:38 | XMS_ITS | Referral Summary ---
Author Organization [facility] Address [address] [place] [address] Care Team Providers Care Demonstrator Knitting Name Role Phone Adan Mora MD Primary Care Provider +1- [phone] Allergies Active Allergy Reactions Criticality Noted Date [...] 1 tablet (75 mcg total) by mouth online marketing specialist before breakfast 11/16/19 22 Active hydrALAZINE (APRESOLINE) 25 mg tablet Take 1 tablet (25 mg total) by mouth 3 (three) times a day 11/15/19 22 Active Active Problems Problem Noted Date Diagnosed Date Stroke determined by clinical assessment 022 Cerebrovascular accident (CVA), unspecified 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 Social History Tobacco Use Types Packs/Day Years Used Date Smoking Tobacco: Never Smokeless Tobacco: Never PHQ-2 Answer Date Recorded PHQ-2 Total Score (If total score is 3 or more points, staff should administer the PHQ-9) 0 11/13/2021 Comments Unknown Sex and Gender Information Value Date Recorded Sex Assigned at Not on file Legal Sex Female 2:47 AM HEAD BUCKER Gender Identity Not on file Sexual Orientation [...] of Treatment Not on file Insurance MEDICARE [place] [employer] MED[place] [employer] MED[place] [employer] Advance Directives For more information, please contact: [phone] Documents on File Type Date Recorded Patient Agriculture Internship Expl anation ADVANCE DIRECTIVE 07/12/2021 7:39 AM POWER OF JEWELRY MANAGER-MEDICAL * Full Code (Latest Code Status on File) Date Activated Date Inactivated Comments 11/10/2021 8:42 PM 11/14/2021 11:24 PM * Full Code Date Activated Date Inactivated Comments 07/09/2021 6:14 PM 07/12/2021 10:11 PM Care Teams Demonstrator Knitting Relationship Specialty Start Date End Date Adan Mora MD [address] [facility] [address] [place] [address] PCP - General Internal Medicine 08/03/21
== END 2024-05-25 18:04 | disposition home or self-care (01) ==
PROVIDERS: Emergency Provider Nurse Practitioner Family; PCP Internal Medicine
DX: J06.9 Acute upper respiratory infection, unspecified (principal); Z20.822 Contact with and (suspected) exposure to COVID-19; I10 Essential (primary) hypertension; E78.5 Hyperlipidemia, unspecified; E03.9 Hypothyroidism, unspecified; M17.0 Bilateral primary osteoarthritis of knee; G25.81 Restless legs syndrome; I69.990 Apraxia following unspecified cerebrovascular disease; I69.951 Hemiplegia and hemiparesis following unspecified cerebrovascular disease affecting right dominant side
CPT/HCPCS: 87426; 87804; 99213; G0463

== ENCOUNTER 2024-06-03 20:26 | Emergency (ER) | payer MEDICARE, BC, SELFPAY ==
--- OUTSIDE RECORDS SUMMARY | 2024-06-03 20:29 | XMS_ITS | Referral Summary ---
Author Organization [facility] Address [address] [place] [address] Care Team Providers Care Hairspring Setter Name Role Phone Adan Mora MD Primary Care Provider +1- [phone] Allergies Active Allergy Reactions Criticality Noted Date [...] 1 tablet (75 mcg total) by mouth guest services associate before breakfast 11/16/19 22 Active hydrALAZINE (APRESOLINE) 25 mg tablet Take 1 tablet (25 mg total) by mouth 3 (three) times a day 11/15/19 22 Active Active Problems Problem Noted Date Diagnosed Date Stroke determined by clinical assessment 022 Cerebrovascular accident (CVA), 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 Social History Tobacco Use Types Packs/Day Years Used Date Smoking Tobacco: Never Smokeless Tobacco: Never PHQ-2 Answer Date Recorded PHQ-2 Total Score (If total score is 3 or more points, staff should administer the PHQ-9) 0 11/13/2021 Comments Unknown Sex and Gender Information Value Date Recorded Sex Assigned at Not on file Legal Sex Female 2:47 AM CLOTH BOOKER Gender Identity Not on file Sexual Orientation [...] of Treatment Not on file Insurance MEDICARE [place] [employer] MEDICARE [place] [employer] MEDICARE [place] [employer] Advance Directives For more information, please contact: [phone] Documents on File Type Date Recorded Patient Water Pumper Expl anation ADVANCE DIRECTIVE 07/12/2021 7:39 AM POWER OF PHYSICIAN/ALLERGY/IMMUNOLOGY-MEDICAL * Full Code (Latest Code Status on File) Date Activated Date Inactivated Comments 11/10/2021 8:42 PM 11/14/2021 11:24 PM * Full Code Date Activated Date Inactivated Comments 07/09/2021 6:14 PM 07/12/2021 10:11 PM Care Teams Hairspring Setter Relationship Specialty Start Date End Date Adan Mora MD [address] [facility] [address] [place] [address] PCP - General Internal Medicine 08/03/21
--- OUTSIDE RECORDS SUMMARY | 2024-06-03 20:29 | XMS_ITS | Clinical Summary ---
Author Organization [facility] Address [address] [place] [address] Care Team Providers Care Typing Secretary Name Role Phone Adan Mora MD Primary Care Provider +1- [phone] Allergies Active Allergy Reactions Criticality Noted Date [...] 1 tablet (75 mcg total) by mouth employee communications intern before breakfast 11/16/19 22 Active hydrALAZINE (APRESOLINE) 25 mg tablet Take 1 tablet (25 mg total) by mouth 3 (three) times a day 11/15/19 22 Active Active Problems Problem Noted Date Diagnosed Date Stroke determined by clinical assessment 022 Cerebrovascular accident (CVA), unspecified [facility] 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 Social History Tobacco Use Types Packs/Day Years Used Date Smoking Tobacco: Never Smokeless Tobacco: Never PHQ-2 Answer Date Recorded PHQ-2 Total Score (If total score is 3 or more points, staff should administer the PHQ-9) 0 11/13/2021 Comments Unknown Sex and Gender Information Value Date Recorded Sex Assigned at Not on file Legal Sex Female 2:47 AM EXHAUST WORKER Gender Identity Not on file Sexual Orientation [...] Zoster Vaccine Completed 04/20/2020, 02/17/2020 Insurance MEDICARE [facility] MEDICARE [place] [employer] MEDICARE [place] [employer] Advance Directives For more information, please contact: [phone] Documents on File Type Date Recorded Patient Packaging Associate Expl anation ADVANCE DIRECTIVE 07/12/2021 7:39 AM POWER OF PERIOPERATIVE ASSISTANT-MEDICAL * Full Code (Latest Code Status on File) Date Activated Date Inactivated Comments 11/10/2021 8:42 PM 11/14/2021 11:24 PM * Full Code Date Activated Date Inactivated Comments 07/09/2021 6:14 PM 07/12/2021 10:11 PM Care Teams Typing Secretary Relationship Specialty Start Date End Date Adan Mora MD [address] [facility] [address] [facility] [address] [place] [address] PCP - General Internal Medicine 08/03/21
--- OUTSIDE RECORDS SUMMARY | 2024-06-03 20:29 | XMS_ITS | Clinical Summary ---
Author Organization [facility] Address [address] [facility], [facility] [address] [place] [address] Phone Care Team Providers Care Escort Service Attendant Name Role Phone Sohail Martínez Primary Care [...] age to complete this topic Insurance MEDICARE [facility] Care Teams Escort Service Attendant Relationship Specialty Start Date End Date Sohail Martínez PAC [address] [place] [address] PCP - General Physician Survey Data Technician 11/12/19
[2024-06-03 20:45] VITALS: BP 103/56; PULSE 98; RESP 18; TEMP 36.7; O2SAT 99
[2024-06-03 23:53] VITALS: BP 94/57; PULSE 80; RESP 20; O2SAT 97
--- OUTSIDE RECORDS SUMMARY | 2024-06-04 03:06 | XMS_ITS | Clinical Summary ---
Author Organization [facility] Address [address] [facility], [facility] [address] [place] [address] Phone Care Team Providers Care Resident Engineer Name Role Phone Sohail Martínez Primary Care [...] age to complete this topic Insurance MEDICARE [facility] Care Teams Resident Engineer Relationship Specialty Start Date End Date Sohail Martínez PAC [address] [place] [address] PCP - General Physician Leather Coverer 11/12/19
--- OUTSIDE RECORDS SUMMARY | 2024-06-04 03:06 | XMS_ITS | Clinical Summary ---
Author Organization [facility] Address [address] [place] [address] Care Team Providers Care Science Analyst Name Role Phone Adan Mora MD Primary Care Provider +1- [phone] Allergies Active Allergy Reactions Criticality Noted Date [...] 1 tablet (75 mcg total) by mouth drag car racer before breakfast 11/16/19 22 Active hydrALAZINE (APRESOLINE) 25 mg tablet Take 1 tablet (25 mg total) by mouth 3 (three) times a day 11/15/19 22 Active Active Problems Problem Noted Date Diagnosed Date Stroke determined by clinical assessment 022 Cerebrovascular accident (CVA), unspecified [facility] 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 Social History Tobacco Use Types Packs/Day Years Used Date Smoking Tobacco: Never Smokeless Tobacco: Never PHQ-2 Answer Date Recorded PHQ-2 Total Score (If total score is 3 or more points, staff should administer the PHQ-9) 0 11/13/2021 Comments Unknown Sex and Gender Information Value Date Recorded Sex Assigned at Not on file Legal Sex Female 2:47 AM IRONWORKER FOREMAN Gender Identity Not on file Sexual Orientation [...] Zoster Vaccine Completed 04/20/2020, 02/17/2020 Insurance MEDICARE [facility] MEDICARE [place] [employer] MEDICARE [place] [employer] Advance Directives For more information, please contact: [phone] Documents on File Type Date Recorded Patient Jacquard Lace Weaver Expl anation ADVANCE DIRECTIVE 07/12/2021 7:39 AM POWER OF CIRCUIT RIDER-MEDICAL * Full Code (Latest Code Status on File) Date Activated Date Inactivated Comments 11/10/2021 8:42 PM 11/14/2021 11:24 PM * Full Code Date Activated Date Inactivated Comments 07/09/2021 6:14 PM 07/12/2021 10:11 PM Care Teams Science Analyst Relationship Specialty Start Date End Date Adan Mora MD [address] [facility] [address] [facility] [address] [place] [address] PCP - General Internal Medicine 08/03/21
--- OUTSIDE RECORDS SUMMARY | 2024-06-04 03:06 | XMS_ITS | Referral Summary ---
Author Organization [facility] Address [address] [place] [address] Care Team Providers Care Hybrid Car Mechanic Name Role Phone Adan Mora MD Primary Care Provider +1- [phone] Allergies Active Allergy Reactions Criticality Noted Date [...] 1 tablet (75 mcg total) by mouth funeral home makeup artist before breakfast 11/16/19 22 Active hydrALAZINE (APRESOLINE) 25 mg tablet Take 1 tablet (25 mg total) by mouth 3 (three) times a day 11/15/19 22 Active Active Problems Problem Noted Date Diagnosed Date Stroke determined by clinical assessment 022 Cerebrovascular accident (CVA), unspecified [facility] 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 Social History Tobacco Use Types Packs/Day Years Used Date Smoking Tobacco: Never Smokeless Tobacco: Never PHQ-2 Answer Date Recorded PHQ-2 Total Score (If total score is 3 or more points, staff should administer the PHQ-9) 0 11/13/2021 Comments Unknown Sex and Gender Information Value Date Recorded Sex Assigned at Not on file Legal Sex Female 2:47 AM PASTEURISER OPERATOR Gender Identity Not on file Sexual Orientation [...] of Treatment Not on file Insurance MEDICARE [place] [employer] MEDICARE [place] [employer] MEDICARE [place] [employer] Advance Directives For more information, please contact: [phone] Documents on File Type Date Recorded Patient Campus Director Expl anation ADVANCE DIRECTIVE 07/12/2021 7:39 AM POWER OF CUSTOM TAILOR-MEDICAL * Full Code (Latest Code Status on File) Date Activated Date Inactivated Comments 11/10/2021 8:42 PM 11/14/2021 11:24 PM * Full Code Date Activated Date Inactivated Comments 07/09/2021 6:14 PM 07/12/2021 10:11 PM Care Teams Hybrid Car Mechanic Relationship Specialty Start Date End Date Adan Mora MD [address] [facility] [address] [place] [address] PCP - General Internal Medicine 08/03/21
--- NOTE | 2024-06-04 03:57 | ED.GENADULT ---
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 Patient presents to the emergency room with multiple complaints of feeling unwell for the last 3 months. Patient has been seen by her doctor and urgent care several times these past few weeks and diagnosed with allergies, upper respiratory infection symptoms and treated with prednisone and azithromycin. She presents today to the ER for bilateral lower extremity leg swelling, decreased appetite, multiple chronic complaints that are not new including a chronic rash that she is supposed to see an architect in training for, arthritis pain, insomnia. Patient is not in any acute distress, patient's family is at bedside for collateral formation. Denies any injuries, falls or other recent illnesses. Related Data Home Medications ?Medication ?Instructions ?Recorded ?Confirmed ?Last Taken ?Type acetaminophen 325 mg tablet See Rx Instructions .Route 11/15/21 05/25/24 Unknown History .COMPLEX PRN Pain Allergies Allergy/AdvReac Type Severity Reaction Status Date / Time No Known Allergies Allergy NONE Verified 05/25/24 09:56 Review of Systems Review of Systems: As reviewed above in HPI [facility] Past Medical History Medical History BMI 20.0-20.9, adult Other fatigue Sciatica of right side Primary osteoarthritis of both knees Pre-op exam Paresthesias Pain in unspecified knee Nocturia Herpes zoster without complication Essential hypertension Colon cancer screening Abnormal urinalysis Arthritis SOB (shortness of breath) Vision changes History of small bowel obstruction Left knee DJD Right knee DJD Elevated liver enzymes Pain of right lower extremity Restless leg syndrome Constipation Dysarthria Aphasia as late effect of cerebrovascular accident 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 Mother Heart disease Social History Social History Social History: patient lives alone in a single-level home. Daughter is involved and will provide assistance. 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 Mucous membranes moist. NECK: Supple. CHEST: [Clear to auscultation. No respiratory distress.] HEART: [Regular rate and rhythm]. No murmur heard. [Normal peripheral pulses.] ABDOMEN: [Soft, nondistended], [nontender], [No rigidity or guarding] EXTREMITIES: Normal range of motion. 2+ nonpitting edema to the legs SKIN: Warm, dry, no rash. NEURO: [No focal deficits]. Alert and oriented [x3.] PSYCH: [Normal mood and affect.] Course Vital Signs Vital signs: Vital Signs Temperature 36.7 C 06/03/24 20:45 Pulse Rate 98 06/03/24 20:45 Respiratory Rate 18 06/03/24 20:45 Blood Pressure 103/56 L 06/03/24 20:45 Pulse Oximetry 99 06/03/24 20:45 Oxygen Delivery Room Air 06/03/24 20:45 Temperature 36.7 C 06/03/24 20:45 Pulse Rate 81 06/04/24 06:01 Respiratory Rate 13 06/04/24 06:01 Blood Pressure 156/84 H 06/04/24 06:01 Pulse Oximetry 100 06/04/24 06:01 Oxygen Delivery Room Air 06/03/24 20:45 Medical Decision Making MDM Narrative Medical decision making narrative: 88-year-old female with history of hypertension, hyperlipidemia, hypothyroidism, prior CVA. She presents today with a myriad of complaints most chiefly pain bilateral lower extremity swelling. No history of heart failure, kidney failure or liver failure. She has been seen multiple times these past few weeks for allergy type symptoms and trialed on oral medications. She recently completed course of prednisone and amoxicillin for upper respiratory infection. Patient endorses multiple chronic medical complaints but her most concern is in her legs. Pain and swelling her legs have down after she has stopped walking throughout the day and lifts them up. She has unremarkable examination aside from 2+ nonpitting edema to the legs. No periorbital edema, no rash in her body identifiable. She has some low blood pressure readings but this is chronic on review of the previous PCP notes. No tachycardia, fever or hypoxia. Considerations presently are for potential electrolyte deficiencies, protein calorie malnutrition, low albumin, liver failure, renal failure, low suspicion cardiac or heart failure. Hypothyroidism could also cause this. She is not any kind of calcium channel blockers or other new medications that would cause swelling in her legs. Given the dependent nature the edema that resolves with rest and elevation most likely this is dependent edema along with her other chronic medical conditions. We will evaluate with CBC, CMP, magnesium, BNP, urinalysis. Workup shows no leukocytosis or anemia. Normal platelet level. Electrolytes were largely unremarkable, mildly elevated creatinine from her previous level indicative of prerenal dehydration. Normal glucose. Normal electrolytes. LFTs with some low albumin which could explain her leg swelling. BNP is mildly elevated but she is not hypoxic or having any shortness of breath, chest pain or asymmetric breath sounds. Urinalysis with no signs of infection. Patient was given a L of fluid and albumin replacement here. I discussed the findings with the patient and the family at bedside and plans going forward. They were comfortable with discharge at this time with close outpatient primary care provider follow-up and continuing to seek allergy referral for her other chronic symptoms. Patient is safe for discharge at this time. Medical Records Medical records reviewed: Yes I reviewed the external patient's medical records. Vital Signs Vital Signs: Vital Signs Temperature 36.7 C 06/03/24 20:45 Pulse Rate 98 06/03/24 20:45 Respiratory Rate 18 06/03/24 20:45 Blood Pressure 103/56 L 06/03/24 20:45 Pulse Oximetry 99 06/03/24 20:45 Oxygen Delivery Room Air 06/03/24 20:45 Temperature 36.7 C 06/03/24 20:45 Pulse Rate 81 06/04/24 06:01 Respiratory Rate 13 06/04/24 06:01 Blood Pressure 156/84 H 06/04/24 06:01 Pulse Oximetry 100 06/04/24 06:01 Oxygen Delivery Room Air 06/03/24 20:45 Lab Data Lab results reviewed: Yes I reviewed the patient's lab results. 06/04/24 04:20 06/04/24 04:20 Labs: Lab Results 06/04/24 Range/Units 04:20 WBC 7.5 (4.5-10.0) K/mm3 RBC 3.71 L (4.2-5.4) M/mm3 Hgb 12.0 (12.0-15.0) g/dL Hct 35.9 L (37.0-47.0) % MCV 96.8 (80-100) fl MCH 32.3 (26-34) pg MCHC 33.4 (32-36) g/dl RDW 16.2 H (11.5-14.5) % Plt Count 177 (150-375) k/mm3 MPV 9.1 (7.4-10.4) fl Immature Gran % (Auto) 1.3 H (0-0.5) % Neut % (Auto) 54.7 (45.5-73.1) % Lymph % (Auto) 14.9 L (18.3-44.2) % [place] % (Auto) 8.7 H (2.6-8.5) % Eos % (Auto) 19.5 H (0-4.4) % Baso % (Auto) 0.9 (0.2-1.2) % Lymph # (Auto) 1.11 (0.9-3.2) K/mm3 [place] # (Auto) 0.7 H (0.1-0.6) K/mm3 Eos # (Auto) 1.5 H (0-0.3) K/mm3 Baso # (Auto) 0.1 (0.0-0.1) K/mm3 Abs Immat Gran (auto) 0.10 H (0.00-0.031) K/mm3 Absolute Neuts (auto) 4.1 (1.3-6.7) K/mm3 Absolute Nucleated RBC 0.000 (0.0-0.012) K/mm3 Nucleated RBC % 0.0 (0.0-0.2) % Sodium 134 L (137-145) mmol/L Potassium 4.3 (3.4-5.0) mmol/L Chloride 97 L (98-107) mmol/L Carbon Dioxide 31 H (22-30) mmol/L Anion Gap 6 (4-12) mmol/L BUN 18 H (7-17) mg/dL Creatinine 1.28 H (0.7-1.0) mg/dL Estim Creat Clear Calc Not Reportable Estimated GFR 39 L (59 - ) Glucose 82 (65-110) mg/dL Calcium 9.5 (8.4-10.2) mg/dL Magnesium 2.2 (1.6-2.3) mg/dL Total Bilirubin 1.0 (0.2-1.3) mg/dL AST 35 (14-36) U/L ALT 81 H (6-35) U/L Alkaline Phosphatase 169 H (38-126) U/L NT-Pro-B Natriuret Pep 424 H (19.9-100) pg/mL Total Protein 6.0 L (6.3-8.2) g/dL Albumin 3.2 L (3.5-5.1) g/dL Urine Color Yellow (Yellow) Urine Appearance Clear (Clear) Urine pH 5.5 (5.0-9.0) Ur Specific [place] 1.008 (1.001-1.035) Urine Protein Negative (Negative) mg/dL Urine Glucose (UA) Negative (Negative) mg/dL Urine Ketones Negative (Negative) mg/dL Ur Blood (Man) Negative (Negative) Urine Nitrate Negative (Negative) Urine Bilirubin Negative (Negative) Urine Urobilinogen 0.2 (<2.0) mg/dL Add Ur Microanalysis Reviewed Leukocyte Esterase Rfl Trace H (Negative) ARTEM/UL Urine RBC 0-2 (0-2) /hpf Urine WBC 0-5 (0-3) /hpf Ur Squamous Epith Cells None seen (Few) /hpf Urine Bacteria None seen /hpf Urine Casts 0-2 Discharge Plan Discharge Clinical Impression: Acute dehydration, Low serum albumin, Non-pitting edema Patient Disposition: Home, Self-Care Condition: Stable Instructions: Antibiotic Form, Dehydration (DC), Malnutrition (DC) Additional Instructions: You have some mild dehydration and protein calorie malnutrition with low serum albumin. We have given you fluids here and albumin replacement. Call your primary doctor to have outpatient evaluation and follow-up for this. Return with any new or worsening concerns. Patient Language: [place] Prescriptions: No Action azithromycin [Zithromax Z-Phani] 250 mg tablet See Rx Instructions .ROUTE .COMPLEX Qty: 6 0RF Rx Instructions: For 250 mg dose pack: take 500 mg today (day 1), then 250 mg for 4 days (days 2-5) prednisone 20 mg tablet 20 mg PO DAILY Qty: 5 0RF lisinopril 20 mg tablet 20 mg PO DAILY Qty: 90 2RF atorvastatin 40 mg tablet See Rx Instructions .ROUTE .COMPLEX Qty: 90 1RF Dose Instruction: TAKE 1 TABLET DAILY Rx Instructions: TAKE 1 TABLET DAILY levothyroxine 50 mcg tablet 50 mcg PO DAILY Qty: 90 2RF fluticasone propionate [Flonase Allergy Relief] 50 mcg/actuation spray,suspension 2 spray intranasal DAILY Qty: 16 3RF Rx Instructions: administer into each nostril aspirin 325 mg Tablet 325 mg PO DAILY@0800 Qty: 0 0RF acetaminophen 325 mg Tablet See Rx Instructions .ROUTE .COMPLEX PRN (Reason: Pain) Rx Instructions: Take as directed on bottle Follow-up/Referrals: Kenny Yepez DO [Primary Care Provider] - Time of Disposition: 06:32
[2024-06-04 04:23] VITALS: BP 133/66; PULSE 79; RESP 14; O2SAT 96
[2024-06-04 04:27] VITALS: O2SAT 96
[2024-06-04 04:50] LABS: Basophils Absolute Auto 0.1 K/mm3 (0.0-0.1); Basophils Percent Auto 0.9 % (0.2-1.2); Eosinophils Absolute Auto 1.5 K/mm3 (0-0.3); Eosinophils Percent Auto 19.5 % (0-4.4); Hematocrit 35.9 % (37.0-47.0); Immature Granulocyte Percent A 1.3 % (0-0.5); Lymphocytes Absolute Auto 1.11 K/mm3 (0.9-3.2); Lymphocytes Percent Auto 14.9 % (18.3-44.2); Mean Corpuscular HGB Conc 33.4 g/dl (32-36); Mean Corpuscular Hemoglobin 32.3 pg (26-34); Mean Corpuscular Volume 96.8 fl (80-100); Mean Platelet Volume 9.1 fl (7.4-10.4); Monocytes Absolute Auto 0.7 K/mm3 (0.1-0.6); Monocytes Percent Auto 8.7 % (2.6-8.5); Neutrophils Absolute Auto 4.1 K/mm3 (1.3-6.7); Neutrophils Percent Auto 54.7 % (45.5-73.1); Platelet Count Result 177 k/mm3 (150-375); Red Blood Count 3.71 M/mm3 (4.2-5.4); Red Cell Distribution Width 16.2 % (11.5-14.5); White Blood Count 7.5 K/mm3 (4.5-10.0)
[2024-06-04 05:01] VITALS: BP 127/67; PULSE 78; RESP 14; O2SAT 100
[2024-06-04 05:05] LABS: Add Urine Microscopic? YES; Alanine Aminotransferase 81 U/L (6-35); Albumin Level 3.2 g/dL (3.5-5.1); Alkaline Phosphatase 169 U/L (38-126); Anion Gap 6 mmol/L (4-12); Appearance Urine Clear (Clear); Aspartate Amino Transferase 35 U/L (14-36); Bacteria Urine None Seen /hpf; Bilirubin Urine Negative (Negative); Blood Urea Nitrogen 18 mg/dL (7-17); Blood Urine Negative (Negative); Calcium 9.5 mg/dL (8.4-10.2); Carbon Dioxide 31 mmol/L (22-30); Chloride 97 mmol/L (98-107); Color Urine Yellow (Yellow); Estimated Glomerular Filt Rate 39; Glucose 82 mg/dL (65-110); Glucose Urine UA Negative (Negative); Ketones Urine Negative (Negative); Leukocyte Esterase Ur Trace LEU/UL (Negative); Magnesium 2.2 mg/dL (1.6-2.3); Need Manual Microscopic Reviewed; Nitrate Urine Negative (Negative); Non Pathogenic Casts 0-2; Potassium 4.3 mmol/L (3.4-5.0); Protein Urine Negative (Negative); RBC Urine 0-2 /hpf (0-2); Sodium 134 mmol/L (137-145); Specific Grav Ur 1.008 (1.001-1.035); Squamous Epithelial Cell Urine None Seen /hpf (Few); Urobilinogen Urine 0.2 mg/dL (<2.0); WBC Urine 0-5 /hpf (0-3); pH Urine 5.5 (5.0-9.0)
[2024-06-04 05:14] LABS: NT Pro B Type Natriuretic Pept 424 pg/mL (19.9-100)
[2024-06-04 06:01] VITALS: BP 156/84; PULSE 81; RESP 13; O2SAT 100
[2024-06-04] MEDS: ALBUMIN HUMAN 25% 25 GM/100 ML 100 ML IVPB (06:37)
[2024-06-04] MEDS: SODIUM CHLORIDE 0.9% IV 1,000 ML 999 ML IV CONT (06:38)
[2024-06-04 08:30] VITALS: BP 152/75; PULSE 68; RESP 20; O2SAT 99
== END 2024-06-04 08:31 | disposition home or self-care (01) ==
PROVIDERS: Emergency Provider Student in an Organized Health Care Education/Training Program; PCP Internal Medicine
DX: E86.0 Dehydration (principal); E88.09 Other disorders of plasma-protein metabolism, not elsewhere classified; R60.9 Edema, unspecified; I10 Essential (primary) hypertension; Z86.73 Personal history of transient ischemic attack (TIA), and cerebral infarction without residual deficits; E78.5 Hyperlipidemia, unspecified; E03.9 Hypothyroidism, unspecified
CPT/HCPCS: 36415; 80053; 81001; 83735; 83880; 85025; 96365; 96366; 99284; J7030; P9047

== ENCOUNTER 2024-06-17 12:33 | Outpatient (CLI) | payer MEDICARE, BC, SELFPAY ==
[2024-06-17 13:27] LABS: Anion Gap 8 mmol/L (4-12); Blood Urea Nitrogen 21 mg/dL (7-17); Calcium 9.1 mg/dL (8.4-10.2); Carbon Dioxide 27 mmol/L (22-30); Chloride 98 mmol/L (98-107); Estimated Glomerular Filt Rate 45; Glucose 116 mg/dL (65-110); Potassium 3.8 mmol/L (3.4-5.0); Sodium 133 mmol/L (137-145)
--- OUTSIDE RECORDS SUMMARY | 2024-06-17 13:52 | XMS_ITS | Clinical Summary ---
Author Organization [facility] Address [address] [facility], [facility] [address] [place] [address] Phone Care Team Providers Care Senior Pricing Analyst Name Role Phone Sohail Martínez Primary Care [...] age to complete this topic Insurance MEDICARE [facility] Care Teams Senior Pricing Analyst Relationship Specialty Start Date End Date Sohail Martínez PAC [address] [place] [address] PCP - General Physician Interactive Graphic Designer 11/12/19
--- OUTSIDE RECORDS SUMMARY | 2024-06-17 13:52 | XMS_ITS | Referral Summary ---
Author Organization [facility] Address [address] [place] [address] Care Team Providers Care Sustainability Specialist Name Role Phone Adan Mora MD Primary Care Provider [phone]- [phone] Allergies Active Allergy Reactions Criticality Noted Date [...] 1 tablet (75 mcg total) by mouth teacher drama before breakfast 11/16/19 22 Active hydrALAZINE (APRESOLINE) 25 mg tablet Take 1 tablet (25 mg total) by mouth 3 (three) times a day 11/15/19 22 Active Active Problems Problem Noted Date Diagnosed Date Stroke determined by clinical assessment 022 Cerebrovascular accident (CVA), unspecified 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 Social History Tobacco Use Types Packs/Day Years Used Date Smoking Tobacco: Never Smokeless Tobacco: Never PHQ-2 Answer Date Recorded PHQ-2 Total Score (If total score is 3 or more points, staff should administer the PHQ-9) 0 11/13/2021 Comments Unknown Sex and Gender Information Value Date Recorded Sex Assigned at Not on file Legal Sex Female 2:47 AM INDEPENDENT CONTRACTOR Gender Identity Not on file Sexual Orientation [...] of Treatment Not on file Insurance MEDICARE [place] [employer] MED[employer] [place] [employer] [place] [employer] Advance Directives For more information, please contact: [phone] Documents on File Type Date Recorded Patient Correctional Nurse Expl anation ADVANCE DIRECTIVE 07/12/2021 7:39 AM POWER OF SECURITY DISPATCHER-MEDICAL * Full Code (Latest Code Status on File) Date Activated Date Inactivated Comments 11/10/2021 8:42 PM 11/14/2021 11:24 PM * Full Code Date Activated Date Inactivated Comments 07/09/2021 6:14 PM 07/12/2021 10:11 PM Care Teams Sustainability Specialist Relationship Specialty Start Date End Date Adan Mora MD [address] [facility] [address] [place] [address] PCP - General Internal Medicine 08/03/21
--- OUTSIDE RECORDS SUMMARY | 2024-06-17 13:52 | XMS_ITS | Clinical Summary ---
Author Organization [facility] Address [address] [place] [address] Care Team Providers Care Energy Assistant Name Role Phone Adan Mora MD Primary Care Provider +1- [phone] Allergies Active Allergy Reactions Criticality Noted Date [...] 1 tablet (75 mcg total) by mouth fraud representative before breakfast 11/16/19 22 Active hydrALAZINE (APRESOLINE) 25 mg tablet Take 1 tablet (25 mg total) by mouth 3 (three) times a day 11/15/19 22 Active Active Problems Problem Noted Date Diagnosed Date Stroke determined by clinical assessment 022 Cerebrovascular accident (CVA), unspecified [facility] 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 Social History Tobacco Use Types Packs/Day Years Used Date Smoking Tobacco: Never Smokeless Tobacco: Never PHQ-2 Answer Date Recorded PHQ-2 Total Score (If total score is 3 or more points, staff should administer the PHQ-9) 0 11/13/2021 Comments Unknown Sex and Gender Information Value Date Recorded Sex Assigned at Not on file Legal Sex Female 2:47 AM BLUE PRINTS TRIMMER Gender Identity Not on file Sexual Orientation [...] Zoster Vaccine Completed 04/20/2020, 02/17/2020 Insurance MEDICARE [facility] MEDICARE [place] [employer] MED[employer] [employer] Advance Directives For more information, please contact: [phone] Documents on File Type Date Recorded Patient Manager Animation Expl anation ADVANCE DIRECTIVE 07/12/2021 7:39 AM POWER OF HEEL DIPPER-MEDICAL * Full Code (Latest Code Status on File) Date Activated Date Inactivated Comments 11/10/2021 8:42 PM 11/14/2021 11:24 PM * Full Code Date Activated Date Inactivated Comments 07/09/2021 6:14 PM 07/12/2021 10:11 PM Care Teams Energy Assistant Relationship Specialty Start Date End Date Adan Mora MD [address] [facility] [address] [facility] [address] [place] [address] PCP - General Internal Medicine 08/03/21
== END 2024-06-17 12:34 | disposition home or self-care (01) ==
PROVIDERS: PCP Internal Medicine; Visit Provider Internal Medicine
DX: I10 Essential (primary) hypertension (principal)
CPT/HCPCS: 36415; 80048

== ENCOUNTER 2024-06-25 09:52 | Outpatient (CLI) | payer MEDICARE, BC, SELFPAY ==
--- OUTSIDE RECORDS SUMMARY | 2024-06-25 10:26 | XMS_ITS | Clinical Summary ---
Author Organization [facility] Address [address] [facility], [facility] [address] [place] [address] Phone Care Team Providers Care Beveler Name Role Phone Sohail Martínez Primary Care [...] age to complete this topic Insurance MEDICARE [facility] Care Teams Beveler Relationship Specialty Start Date End Date Sohail Martínez PAC [address] [place] [address] PCP - General Physician Wired Sweatband Cutter 11/12/19
[2024-06-25 10:28] LABS: Anion Gap 5 mmol/L (4-12); Blood Urea Nitrogen 11 mg/dL (7-17); Calcium 9.2 mg/dL (8.4-10.2); Carbon Dioxide 31 mmol/L (22-30); Chloride 93 mmol/L (98-107); Estimated Glomerular Filt Rate 41; Glucose 104 mg/dL (65-110); Potassium 4.1 mmol/L (3.4-5.0); Sodium 129 mmol/L (137-145)
== END 2024-06-25 09:53 | disposition home or self-care (01) ==
PROVIDERS: PCP Internal Medicine; Visit Provider Internal Medicine
DX: I10 Essential (primary) hypertension (principal)
CPT/HCPCS: 36415; 80048

== ENCOUNTER 2024-07-03 09:03 | Outpatient (CLI) | payer MEDICARE, BC, SELFPAY ==
--- OUTSIDE RECORDS SUMMARY | 2024-07-03 09:27 | XMS_ITS | Clinical Summary ---
Author Organization [facility] Address [address] [facility], [facility] [address] [place] [address] Phone Care Team Providers Care Enrollment Services Dean Name Role Phone Sohail Martínez Primary Care [...] Health Maintenance Due Date Last Done Comments Hepatitis C Virus (HCV) Screening 1935 TdaP [...] age to complete this topic Insurance MEDICARE [facility] Care Teams Enrollment Services Dean Relationship Specialty Start Date End Date Sohail Martínez PAC [address] [place], [place] [id number] PCP - General Physician Field Crop Farmer 11/12/19
--- OUTSIDE RECORDS SUMMARY | 2024-07-03 09:27 | XMS_ITS | Clinical Summary ---
Author Organization [facility] Address [address] [place] [address] Care Team Providers Care Buyers' Agent Name Role Phone Adan Mora MD Primary Care Provider +1- [phone] Allergies Active Allergy Reactions Criticality Noted Date [...] 1 tablet (75 mcg total) by mouth senior loss control specialist before breakfast 11/16/19 22 Active hydrALAZINE (APRESOLINE) 25 mg tablet Take 1 tablet (25 mg total) by mouth 3 (three) times a day 11/15/19 22 Active Active Problems Problem Noted Date Diagnosed Date Stroke determined by clinical assessment 022 Cerebrovascular accident (CVA), unspecified [facility] 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 Social History Tobacco Use Types Packs/Day Years Used Date Smoking Tobacco: Never Smokeless Tobacco: Never PHQ-2 Answer Date Recorded PHQ-2 Total Score (If total score is 3 or more points, staff should administer the PHQ-9) 0 11/13/2021 Comments Unknown Sex and Gender Information Value Date Recorded Sex Assigned at Not on file Legal Sex Female 2:47 AM LINEN ROOM CUSTODIAN Gender Identity Not on file Sexual Orientation [...] Zoster Vaccine Completed 04/20/2020, 02/17/2020 Insurance MEDICARE [facility] MEDICARE [place] [employer] MEDIC[place] [employer] Advance Directives For more information, please contact: [phone] Documents on File Type Date Recorded Patient Sole Stapler Welt Expl anation ADVANCE DIRECTIVE 07/12/2021 7:39 AM POWER OF RN CARDIOLOGY-MEDICAL * Full Code (Latest Code Status on File) Date Activated Date Inactivated Comments 11/10/2021 8:42 PM 11/14/2021 11:24 PM * Full Code Date Activated Date Inactivated Comments 07/09/2021 6:14 PM 07/12/2021 10:11 PM Care Teams Buyers' Agent Relationship Specialty Start Date End Date Adan Mora MD [address] [facility] [address] [facility] [address] [place] [address] PCP - General Internal Medicine 08/03/21
--- OUTSIDE RECORDS SUMMARY | 2024-07-03 09:27 | XMS_ITS | Referral Summary ---
Author Organization [facility] Address [address] [place] [address] Care Team Providers Care Homoeopath Name Role Phone Adan Mora MD Primary Care Provider +1- [phone] Allergies Active Allergy Reactions Criticality Noted Date [...] 1 tablet (75 mcg total) by mouth early head start teacher before breakfast 11/16/19 22 Active hydrALAZINE (APRESOLINE) 25 mg tablet Take 1 tablet (25 mg total) by mouth 3 (three) times a day 11/15/19 22 Active Active Problems Problem Noted Date Diagnosed Date Stroke determined by clinical assessment 022 [facility] ([facility]A), 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 Social History Tobacco Use Types Packs/Day Years Used Date Smoking Tobacco: Never Smokeless Tobacco: Never PHQ-2 Answer Date Recorded PHQ-2 Total Score (If total score is 3 or more points, staff should administer the PHQ-9) 0 11/13/2021 Comments Unknown Sex and Gender Information Value Date Recorded Sex Assigned at Not on file Legal Sex Female 2:47 AM DISPATCHER RELAY Gender Identity Not on file Sexual Orientation [...] of Treatment Not on file Insurance MEDICARE [place] [employer] MED[employer] [place] [employer] [place] [employer] Advance Directives For more information, please contact: [phone] Documents on File Type Date Recorded Patient Journeyman Press Operator Expl anation ADVANCE DIRECTIVE 07/12/2021 7:39 AM POWER OF PAD EXTRACTION TENDER-MEDICAL * Full Code (Latest Code Status on File) Date Activated Date Inactivated Comments 11/10/2021 8:42 PM 11/14/2021 11:24 PM * Full Code Date Activated Date Inactivated Comments 07/09/2021 6:14 PM 07/12/2021 10:11 PM Care Teams Homoeopath Relationship Specialty Start Date End Date Adan Mora MD [address] [facility] [address] [place] [address] PCP - General Internal Medicine 08/03/21
[2024-07-03 10:05] LABS: Anion Gap 7 mmol/L (4-12); Blood Urea Nitrogen 9 mg/dL (7-17); Calcium 8.9 mg/dL (8.4-10.2); Carbon Dioxide 28 mmol/L (22-30); Chloride 92 mmol/L (98-107); Estimated Glomerular Filt Rate 49; Glucose 87 mg/dL (65-110); Potassium 4.4 mmol/L (3.4-5.0); Sodium 127 mmol/L (137-145)
== END 2024-07-03 09:04 | disposition home or self-care (01) ==
LOC: ANHLAB 09:04
PROVIDERS: PCP Internal Medicine; Visit Provider Internal Medicine
DX: I10 Essential (primary) hypertension (principal)
CPT/HCPCS: 36415; 80048

== ENCOUNTER 2024-07-23 11:46 | Inpatient (IN) | payer MEDICARE, BC, SELFPAY ==
[2024-07-23] VITALS (7 sets, daily range): BP systolic 98–128; BP diastolic 54–77; PULSE 93–116; RESP 16–22; TEMP 36.4–37; O2SAT 96–100; BMI 22.6
--- NOTE | ~2024-07-23 | CT_ITS ---
EXAMINATION: CT chest abdomen pelvis wo con DATE: 07/23/2024 14:46 INDICATION: Shortness of breath. Abdominal distention. TECHNIQUE: Computed tomography (CT) of the chest, abdomen, and pelvis was performed without intraveno us contrast. Automated exposure control and iterative reconstruction technique were employed. The dos e-length product was 397.03 mGy-cm. COMPARISON: CT abdomen dated 12/15/2019 FINDINGS: CHEST CT: Moderate-sized right and small left posterior layering pleural effusions with associated dependent co mpressive atelectasis in the lateral lower lobes. There is additional atelectasis in the dependent ri ght middle lobe. 6 mm nodular opacity in the remaining aerated portion of the superior segment of the right lower lobe. Small focus of tree-in-bud opacity in the anterior right upper lobe consistent wit h bronchiolitis related to endobronchial spread of disease. Heart size is normal. Atherosclerotic cor onary artery calcium. Small pericardial effusion. Thoracic aorta is normal in caliber. There is enlar gement of the central pulmonary arteries consistent with pulmonary arterial hypertension. Bulky lymph adenopathy at the bilateral axilla with additional lymphadenopathy at the bilateral jugular chains an d supraclavicular regions and in the mediastinum. Moderate-sized sliding-type hiatal hernia. Moderate thoracic spondylosis. ABDOMEN/PELVIS CT: Liver, gallbladder, spleen, pancreas, bilateral adrenal glands are normal. There are bilateral low-at tenuation renal cysts the largest at the lower pole the right kidney measuring 2.2 cm. No bowel obstr uction. Decompressed bladder is unremarkable. The uterus is not identified and has likely been surgic ally resected. Small amount of ascites scattered throughout the abdomen and pelvis. There is extensiv e mesenteric, retroperitoneal and body wall edema. There is additional extensive lymphadenopathy thro ughout the abdomen, pelvis and at the bilateral regions. Severe lumbar spondylosis. IMPRESSION: 1. Extensive lymphadenopathy at the neck, chest, abdomen, pelvis and bilateral inguinal regions sadiq rning for lymphoma with differential including other metastatic disease. Recommend ultrasound-guided biopsy for the axillary lymph nodes. 2. Anasarca with moderate sized right, small left pleural effusions, small pericardial effusion, smal l amount of ascites and extensive soft tissue edema. 3. Small region of tree-in-bud opacity in the anterior right upper lobe suggesting bronchiolitis rela ranjit to endobronchial spread of disease. 4. Enlargement of the central pulmonary arteries consistent with pulmonary arterial hypertension. Reviewed, dictated and finalized at location A. IMPRESSION: 1. Extensive lymphadenopathy at the neck, chest, abdomen, pelvis and bilateral inguinal regions concerning for lymphoma with differential including other meta static disease. Recommend ultrasound-guided biopsy for the axillary lymph nodes . 2. Anasarca with moderate sized right, small left pleural effusions, small garth cardial effusion, small amount of ascites and extensive soft tissue edema. 3. Small region of tree-in-bud opacity in the anterior right upper lobe suggest ing bronchiolitis related to endobronchial spread of disease. 4. Enlargement of the central pulmonary arteries consistent with pulmonary melva rial hypertension.
--- NOTE | ~2024-07-23 | XR_ITS ---
CHEST RADIOGRAPH CLINICAL HISTORY: cough . COMPARISON: 04/30/2024 TECHNIQUE: Single portable view of the chest. FINDINGS The cardiomediastinal silhouette is partially obscured Bilateral pleural effusions, right greater than left with adjacent compressive atelectasis. The lungs are otherwise clear. IMPRESSION: Bilateral pleural effusions, right greater than left. Reviewed, dictated and finalized at location A.
--- NOTE | ~2024-07-23 | US_ITS ---
EXAMINATION: US venous doppler [facility] DATE: 07/24/2024 09:02 INDICATION: Lower extremity edema with a history of pulmonary hypertension TECHNIQUE: Grayscale ultrasound images without and with compression and Doppler ultrasound images of the bilateral lower extremity veins were obtained. COMPARISON: None. FINDINGS: The visualized portions of right common femoral vein, profunda (deep) femoral vein, femoral vein, pop liteal vein, peroneal veins, posterior tibial veins, and greater saphenous vein outflow are patent. The visualized portions of left common femoral vein, profunda femoral vein, femoral vein, popliteal v ein, peroneal veins, posterior tibial veins, and greater saphenous vein outflow are patent. IMPRESSION: 1. No deep venous thrombosis. Reviewed, dictated and finalized at location A.
--- NOTE | 2024-07-23 12:14 | ED.GENADULT ---
HPI - General Adult General Chief complaint: Upper Respiratory Infection <Brenda Gu PA-C - Last Filed: 07/23/24 19:01> Stated complaint: cough, pain to left side when coughing <Brenda Gu PA-C - Last Filed: 07/23/24 19:01> Time Seen by Provider: 07/23/24 14:20 <Brenda Gu PA-C - Last Filed: 07/23/24 19:01> Focused HPI: 88 y/o F with a PMHx of HTN, hypothyroidism, HLD presents to the ED with daughter at bedside for rib pain with coughing for the past several months. Endorsing a deep productive cough, generalized weakness, fatigue, decreased oral intake. Endorsing bilateral lower extremity edema that started 3 months ago. Patient was on Lasix but was taken off by her PCP due to electrolyte derangements. Patient and family deny formal diagnosis of CHF. Denies fever, nausea vomiting. Is endorsing diarrhea. States the patient has been on several rounds of antibiotics, steroids and nebulizers without improvement. GENERAL: Well-appearing, well-nourished, and in no acute distress. HEAD: Normocephalic, atraumatic. CHEST: Rhonchi in bilateral lower lobes EXT: Pitting edema bilaterally HEART: Regular rate and rhythm.? NEURO: ?Alert and oriented x3. Patient screened in triage and initial orders placed.? ?Additional care and disposition to be based upon?diagnostic testing and treatment. <Brenda Gu PA-C - Last Filed: 07/23/24 19:01> History of Present Illness HPI narrative: I agree with the above HPI <Toby Kraus MD - Last Filed: 07/23/24 21:34> Related Data Home medications: Home Medications ?Medication ?Instructions ?Recorded ?Confirmed ?Last Taken ?Type acetaminophen 325 mg tablet See Rx Instructions .Route 11/15/21 07/23/24 Unknown History .COMPLEX PRN Pain albuterol sulfate 2.5 mg/3 mL 2.5 mg inhalation Q6H 07/17/24 07/23/24 Unknown History (0.083 %) solution for nebulization <Brenda Gu PA-C - Last Filed: 07/23/24 19:01> Allergies/adverse reactions: Allergies Allergy/AdvReac Type Severity Reaction Status Date / Time No Known Allergies Allergy NONE Verified 07/23/24 17:38 <Brenda Gu PA-C - Last Filed: 07/23/24 19:01> Review of Systems Review of Systems: All systems reviewed & are unremarkable except as noted in HPI and below <Toby Kraus MD - Last Filed: 07/23/24 21:34> [facility] Past Medical History Medical History: Medical History (Updated 07/23/24 @ 16:04 by Toby Kraus MD) BMI 22.0-22.9, adult BMI 20.0-20.9, adult Other fatigue Sciatica of right side Primary osteoarthritis of both knees Pre-op exam Paresthesias Pain in unspecified knee Nocturia Herpes zoster without complication Essential hypertension Colon cancer screening Abnormal urinalysis Arthritis SOB (shortness of breath) Vision changes History of small bowel obstruction Left knee DJD Right knee DJD Elevated liver enzymes Pain of right lower extremity Restless leg syndrome Constipation Dysarthria Aphasia as late effect of cerebrovascular accident 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 Mother Heart disease Aortic aneurysm <Brenda Gu PA-C - Last Filed: 07/23/24 19:01> Social History Social History: Social History Social History: patient lives alone in a single-level home. Daughter is involved and will provide assistance. 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 EYES: PERRLA/EOMI, conjunctivae clear. NOSE: Normal no drainage EARS:TMS clear with good light reflex. THROAT: Pharynx clear, no exudate. NECK: Supple. No adenopathy, no masses. RESPIRATORY: Airway patent, respirations nonlabored. Clear to auscultation bilaterally, no rales, rhonchi, wheezing. CARDIOVASCULAR: Regular rate and rhythm without murmurs rubs or gallops. ABDOMINAL: Soft, nontender, nondistended, normal bowel sounds MUSCULOSKELETAL: Moves all extremities. Strength/ROM intact, No edema, No calf tenderness. NEURO: Alert. Cranial nerves II through XII intact. Good gait. Good coordination SKIN: Warm, dry. Normal Color <Toby Kraus MD - Last Filed: 07/23/24 21:34> Course Vital Signs Vital signs: Vital Signs Temperature 97.7 F 07/23/24 11:56 Pulse Rate 93 07/23/24 11:56 Respiratory Rate 16 07/23/24 11:56 Blood Pressure 98/62 L 07/23/24 11:56 Pulse Oximetry 98 07/23/24 11:56 Oxygen Delivery Room Air 07/23/24 11:56 Temperature 98.6 F 07/23/24 19:40 Pulse Rate 101 H 07/23/24 19:40 Respiratory Rate 16 07/23/24 19:40 Blood Pressure 99/57 L 07/23/24 19:40 Pulse Oximetry 100 07/23/24 19:40 Oxygen Delivery Room Air 07/23/24 14:25 <Brenda Gu PA-C - Last Filed: 07/23/24 19:01> Vital Signs Temperature 97.7 F 07/23/24 11:56 Pulse Rate 93 07/23/24 11:56 Respiratory Rate 16 07/23/24 11:56 Blood Pressure 98/62 L 07/23/24 11:56 Pulse Oximetry 98 07/23/24 11:56 Oxygen Delivery Room Air 07/23/24 11:56 Temperature 98.6 F 07/23/24 19:40 Pulse Rate 101 H 07/23/24 19:40 Respiratory Rate 16 07/23/24 19:40 Blood Pressure 99/57 L 07/23/24 19:40 Pulse Oximetry 100 07/23/24 19:40 Oxygen Delivery Room Air 07/23/24 14:25 <Toby Kraus MD - Last Filed: 07/23/24 21:34> Medical Decision Making MDM Narrative Medical decision making narrative: 88-year-old female presenting to the emergency department for evaluation for worsening fatigue congestion and lymphadenopathy. Patient has been on multiple rounds of steroids and antibiotics by her primary care physician. Patient does have history of being on Lasix but had to stop due to worsening kidney function. CT scan did show significant lymphadenopathy and neck chest and abdomen. Patient has no prior history of lymphoma or carcinoma. Patient will be admitted for further evaluation. Case was discussed with hospitalist. Patient family comfortable the plan for admission. <Toby Kraus MD - Last Filed: 07/23/24 21:34> Differential Diagnosis Differential Diagnosis: COVID, RSV, influenza, lymphoma, metastatic cancer <Toby Kraus MD - Last Filed: 07/23/24 21:34> Vital Signs Vital Signs: Vital Signs Temperature 97.7 F 07/23/24 11:56 Pulse Rate 93 07/23/24 11:56 Respiratory Rate 16 07/23/24 11:56 Blood Pressure 98/62 L 07/23/24 11:56 Pulse Oximetry 98 07/23/24 11:56 Oxygen Delivery Room Air 07/23/24 11:56 Temperature 98.6 F 07/23/24 19:40 Pulse Rate 101 H 07/23/24 19:40 Respiratory Rate 16 07/23/24 19:40 Blood Pressure 99/57 L 07/23/24 19:40 Pulse Oximetry 100 07/23/24 19:40 Oxygen Delivery Room Air 07/23/24 14:25 <Brenad Gu PA-C - Last Filed: 07/23/24 19:01> Vital Signs Temperature 97.7 F 07/23/24 11:56 Pulse Rate 93 07/23/24 11:56 Respiratory Rate 16 07/23/24 11:56 Blood Pressure 98/62 L 07/23/24 11:56 Pulse Oximetry 98 07/23/24 11:56 Oxygen Delivery Room Air 07/23/24 11:56 Temperature 98.6 F 07/23/24 19:40 Pulse Rate 101 H 07/23/24 19:40 Respiratory Rate 16 07/23/24 19:40 Blood Pressure 99/57 L 07/23/24 19:40 Pulse Oximetry 100 07/23/24 19:40 Oxygen Delivery Room Air 07/23/24 14:25 <Toby Kraus MD - Last Filed: 07/23/24 21:34> Lab Data Lab results reviewed: Yes I reviewed the patient's lab results. <Toby Kraus MD - Last Filed: 07/23/24 21:34> Result diagrams: 07/23/24 13:59 07/23/24 13:02 <Brenda Gu PA-C - Last Filed: 07/23/24 19:01> Labs: Lab Results 07/23/24 07/23/24 07/23/24 Range/Units 13:02 13:59 14:50 WBC 12.0 H (4.5-10.0) K/mm3 RBC 3.53 L (4.2-5.4) M/mm3 Hgb 11.3 L (12.0-15.0) g/dL Hct 33.1 L (37.0-47.0) % MCV 93.8 (80-100) fl MCH 32.0 (26-34) pg MCHC 34.1 (32-36) g/dl RDW 18.6 H (11.5-14.5) % Plt Count 168 (150-375) k/mm3 MPV 9.3 (7.4-10.4) fl Immature Gran % (Auto) 1.0 H (0-0.5) % Neut % (Auto) 80.6 H (45.5-73.1) % Lymph % (Auto) 8.1 L (18.3-44.2) % [place] % (Auto) 6.2 (2.6-8.5) % Eos % (Auto) 3.6 (0-4.4) % Baso % (Auto) 0.5 (0.2-1.2) % Lymph # (Auto) 0.97 (0.9-3.2) K/mm3 [place] # (Auto) 0.7 H (0.1-0.6) K/mm3 Eos # (Auto) 0.4 H (0-0.3) K/mm3 Baso # (Auto) 0.1 (0.0-0.1) K/mm3 Abs Immat Gran (auto) 0.12 H (0.00-0.031) K/mm3 Absolute Neuts (auto) 9.7 H (1.3-6.7) K/mm3 Absolute Nucleated RBC 0.000 (0.0-0.012) K/mm3 Nucleated RBC % 0.0 (0.0-0.2) % PT 16.4 H (11.1-14.7) Seconds INR 1.3 APTT 29.7 (22.3-36.8) Seconds Sodium 122 L (137-145) mmol/L Potassium 4.4 (3.4-5.0) mmol/L Chloride 90 L (98-107) mmol/L Carbon Dioxide 19 L (22-30) mmol/L Anion Gap 13 H (4-12) mmol/L BUN 51 H D (7-17) mg/dL Creatinine 3.02 H (0.7-1.0) mg/dL Estim Creat Clear Calc 9 ml/min Estimated GFR 15 L (59 - ) Glucose 91 (65-110) mg/dL Calcium 8.9 (8.4-10.2) mg/dL Total Bilirubin 1.6 H (0.2-1.3) mg/dL AST 48 H (14-36) U/L ALT 95 H (6-35) U/L Alkaline Phosphatase 234 H (38-126) U/L Troponin I < 0.012 (0.000-0.034) ng/mL NT-Pro-B Natriuret Pep 2910 H (19.9-100) pg/mL Total Protein 5.0 L (6.3-8.2) g/dL Albumin 3.3 L (3.5-5.1) g/dL Lipase 17 L (23-300) U/L Urine Color Dark yellow (Yellow) Urine Appearance Cloudy H (Clear) Urine pH 5.0 (5.0-9.0) Ur Specific [place] 1.017 (1.001-1.035) Urine Protein 1+ H (Negative) mg/dL Urine Glucose (UA) Negative (Negative) mg/dL Urine Ketones Trace H (Negative) mg/dL Ur Blood (Man) Negative (Negative) Urine Nitrate Negative (Negative) Urine Bilirubin 1+ H (Negative) Urine Urobilinogen 0.2 (<2.0) mg/dL Add Ur Microanalysis Reviewed Leukocyte Esterase Rfl Negative (Negative) ARTEM/UL Urine RBC 0-2 (0-2) /hpf Urine WBC 0-5 (0-3) /hpf Ur Squamous Epith Cells Few (Few) /hpf Urine Bacteria None seen /hpf Urine Casts >20 Hyaline Casts 1-2 (None) /lpf Granular Casts 3-4 H (None) /lpf Influenza A (RT-PCR) Negative (Negative) Influenza B (RT-PCR) Negative (Negative) RSV (RT-PCR) Negative (Negative) SARS-CoV-2 RNA (RT-PCR) Negative (Negative) 07/23/24 Range/Units 15:48 WBC (4.5-10.0) K/mm3 RBC (4.2-5.4) M/mm3 Hgb (12.0-15.0) g/dL Hct (37.0-47.0) % MCV (80-100) fl MCH (26-34) pg MCHC (32-36) g/dl RDW (11.5-14.5) % Plt Count (150-375) k/mm3 MPV (7.4-10.4) fl Immature Gran % (Auto) (0-0.5) % Neut % (Auto) (45.5-73.1) % Lymph % (Auto) (18.3-44.2) % Knott % (Auto) (2.6-8.5) % Eos % (Auto) (0-4.4) % Baso % (Auto) (0.2-1.2) % Lymph # (Auto) (0.9-3.2) K/mm3 [place]t # (Auto) (0.1-0.6) K/mm3 Eos # (Auto) (0-0.3) K/mm3 Baso # (Auto) (0.0-0.1) K/mm3 Abs Immat Gran (auto) (0.00-0.031) K/mm3 Absolute Neuts (auto) (1.3-6.7) K/mm3 Absolute Nucleated RBC (0.0-0.012) K/mm3 Nucleated RBC % (0.0-0.2) % PT (11.1-14.7) Seconds INR APTT (22.3-36.8) Seconds Sodium (137-145) mmol/L Potassium (3.4-5.0) mmol/L Chloride (98-107) mmol/L Carbon Dioxide (22-30) mmol/L Anion Gap (4-12) mmol/L BUN (7-17) mg/dL Creatinine (0.7-1.0) mg/dL Estim Creat Clear Calc ml/min Estimated GFR (59 - ) Glucose (65-110) mg/dL Calcium (8.4-10.2) mg/dL Total Bilirubin (0.2-1.3) mg/dL AST (14-36) U/L ALT (6-35) U/L Alkaline Phosphatase (38-126) U/L Troponin I < 0.012 (0.000-0.034) ng/mL NT-Pro-B Natriuret Pep (19.9-100) pg/mL Total Protein (6.3-8.2) g/dL Albumin (3.5-5.1) g/dL Lipase (23-300) U/L Urine Color (Yellow) Urine Appearance (Clear) Urine pH (5.0-9.0) Ur Specific [place] (1.001-1.035) Urine Protein (Negative) mg/dL Urine Glucose (UA) (Negative) mg/dL Urine Ketones (Negative) mg/dL Ur Blood (Man) (Negative) Urine Nitrate (Negative) Urine Bilirubin (Negative) Urine Urobilinogen (<2.0) mg/dL Add Ur Microanalysis Leukocyte Esterase Rfl (Negative) ARTEM/UL Urine RBC (0-2) /hpf Urine WBC (0-3) /hpf Ur Squamous Epith Cells (Few) /hpf Urine Bacteria /hpf Urine Casts Hyaline Casts (None) /lpf Granular Casts (None) /lpf Influenza A (RT-PCR) (Negative) Influenza B (RT-PCR) (Negative) RSV (RT-PCR) (Negative) SARS-CoV-2 RNA (RT-PCR) (Negative) <Brenda Gu PA-C - Last Filed: 07/23/24 19:01> Lab Results 07/23/24 07/23/24 07/23/24 Range/Units 13:02 13:59 14:50 WBC 12.0 H (4.5-10.0) K/mm3 RBC 3.53 L (4.2-5.4) M/mm3 Hgb 11.3 L (12.0-15.0) g/dL Hct 33.1 L (37.0-47.0) % MCV 93.8 (80-100) fl MCH 32.0 (26-34) pg MCHC 34.1 (32-36) g/dl RDW 18.6 H (11.5-14.5) % Plt Count 168 (150-375) k/mm3 MPV 9.3 (7.4-10.4) fl Immature Gran % (Auto) 1.0 H (0-0.5) % Neut % (Auto) 80.6 H (45.5-73.1) % Lymph % (Auto) 8.1 L (18.3-44.2) % [place] % (Auto) 6.2 (2.6-8.5) % Eos % (Auto) 3.6 (0-4.4) % Baso % (Auto) 0.5 (0.2-1.2) % Lymph # (Auto) 0.97 (0.9-3.2) K/mm3 [place]t # (Auto) 0.7 H (0.1-0.6) K/mm3 Eos # (Auto) 0.4 H (0-0.3) K/mm3 Baso # (Auto) 0.1 (0.0-0.1) K/mm3 Abs Immat Gran (auto) 0.12 H (0.00-0.031) K/mm3 Absolute Neuts (auto) 9.7 H (1.3-6.7) K/mm3 Absolute Nucleated RBC 0.000 (0.0-0.012) K/mm3 Nucleated RBC % 0.0 (0.0-0.2) % PT 16.4 H (11.1-14.7) Seconds INR 1.3 APTT 29.7 (22.3-36.8) Seconds Sodium 122 L (137-145) mmol/L Potassium 4.4 (3.4-5.0) mmol/L Chloride 90 L (98-107) mmol/L Carbon Dioxide 19 L (22-30) mmol/L Anion Gap 13 H (4-12) mmol/L BUN 51 H D (7-17) mg/dL Creatinine 3.02 H (0.7-1.0) mg/dL Estim Creat Clear Calc 9 ml/min Estimated GFR 15 L (59 - ) Glucose 91 (65-110) mg/dL Calcium 8.9 (8.4-10.2) mg/dL Total Bilirubin 1.6 H (0.2-1.3) mg/dL AST 48 H (14-36) U/L ALT 95 H (6-35) U/L Alkaline Phosphatase 234 H (38-126) U/L Troponin I < 0.012 (0.000-0.034) ng/mL NT-Pro-B Natriuret Pep 2910 H (19.9-100) pg/mL Total Protein 5.0 L (6.3-8.2) g/dL Albumin 3.3 L (3.5-5.1) g/dL Lipase 17 L (23-300) U/L Urine Color Dark yellow (Yellow) Urine Appearance Cloudy H (Clear) Urine pH 5.0 (5.0-9.0) Ur Specific [place] 1.017 (1.001-1.035) Urine Protein 1+ H (Negative) mg/dL Urine Glucose (UA) Negative (Negative) mg/dL Urine Ketones Trace H (Negative) mg/dL Ur Blood (Man) Negative (Negative) Urine Nitrate Negative (Negative) Urine Bilirubin 1+ H (Negative) Urine Urobilinogen 0.2 (<2.0) mg/dL Add Ur Microanalysis Reviewed Leukocyte Esterase Rfl Negative (Negative) ARTEM/UL Urine RBC 0-2 (0-2) /hpf Urine WBC 0-5 (0-3) /hpf Ur Squamous Epith Cells Few (Few) /hpf Urine Bacteria None seen /hpf Urine Casts >20 Hyaline Casts 1-2 (None) /lpf Granular Casts 3-4 H (None) /lpf Influenza A (RT-PCR) Negative (Negative) Influenza B (RT-PCR) Negative (Negative) RSV (RT-PCR) Negative (Negative) SARS-CoV-2 RNA (RT-PCR) Negative (Negative) 07/23/24 Range/Units 15:48 WBC (4.5-10.0) K/mm3 RBC (4.2-5.4) M/mm3 Hgb (12.0-15.0) g/dL Hct (37.0-47.0) % MCV (80-100) fl MCH (26-34) pg MCHC (32-36) g/dl RDW (11.5-14.5) % Plt Count (150-375) k/mm3 MPV (7.4-10.4) fl Immature Gran % (Auto) (0-0.5) % Neut % (Auto) (45.5-73.1) % Lymph % (Auto) (18.3-44.2) % [place] % (Auto) (2.6-8.5) % Eos % (Auto) (0-4.4) % Baso % (Auto) (0.2-1.2) % Lymph # (Auto) (0.9-3.2) K/mm3 [place] # (Auto) (0.1-0.6) K/mm3 Eos # (Auto) (0-0.3) K/mm3 Baso # (Auto) (0.0-0.1) K/mm3 Abs Immat Gran (auto) (0.00-0.031) K/mm3 Absolute Neuts (auto) (1.3-6.7) K/mm3 Absolute Nucleated RBC (0.0-0.012) K/mm3 Nucleated RBC % (0.0-0.2) % PT (11.1-14.7) Seconds INR APTT (22.3-36.8) Seconds Sodium (137-145) mmol/L Potassium (3.4-5.0) mmol/L Chloride (98-107) mmol/L Carbon Dioxide (22-30) mmol/L Anion Gap (4-12) mmol/L BUN (7-17) mg/dL Creatinine (0.7-1.0) mg/dL Estim Creat Clear Calc ml/min Estimated GFR (59 - ) Glucose (65-110) mg/dL Calcium (8.4-10.2) mg/dL Total Bilirubin (0.2-1.3) mg/dL AST (14-36) U/L ALT (6-35) U/L Alkaline Phosphatase (38-126) U/L Troponin I < 0.012 (0.000-0.034) ng/mL NT-Pro-B Natriuret Pep (19.9-100) pg/mL Total Protein (6.3-8.2) g/dL Albumin (3.5-5.1) g/dL Lipase (23-300) U/L Urine Color (Yellow) Urine Appearance (Clear) Urine pH (5.0-9.0) Ur Specific [place] (1.001-1.035) Urine Protein (Negative) mg/dL Urine Glucose (UA) (Negative) mg/dL Urine Ketones (Negative) mg/dL Ur Blood (Man) (Negative) Urine Nitrate (Negative) Urine Bilirubin (Negative) Urine Urobilinogen (<2.0) mg/dL Add Ur Microanalysis Leukocyte Esterase Rfl (Negative) ARTEM/UL Urine RBC (0-2) /hpf Urine WBC (0-3) /hpf Ur Squamous Epith Cells (Few) /hpf Urine Bacteria /hpf Urine Casts Hyaline Casts (None) /lpf Granular Casts (None) /lpf Influenza A (RT-PCR) (Negative) Influenza B (RT-PCR) (Negative) RSV (RT-PCR) (Negative) SARS-CoV-2 RNA (RT-PCR) (Negative) <Toby Kraus MD - Last Filed: 07/23/24 21:34> Imaging Data Radiologist's impression: Impressions Chest X-Ray 07/23/24 12:39 IMPRESSION: Bilateral pleural effusions, right greater than left. Chest/Abdomen/Pelvis CT 07/23/24 14:50 IMPRESSION: 1. Extensive lymphadenopathy at the neck, chest, abdomen, pelvis and bilateral inguinal regions concerning for lymphoma with differential including other metastatic disease. Recommend ultrasound-guided biopsy for the axillary lymph nodes. 2. Anasarca with moderate sized right, small left pleural effusions, small pericardial effusion, small amount of ascites and extensive soft tissue edema. 3. Small region of tree-in-bud opacity in the anterior right upper lobe suggesting bronchiolitis related to endobronchial spread of disease. 4. Enlargement of the central pulmonary arteries consistent with pulmonary arterial hypertension. <Toby Kraus MD - Last Filed: 07/23/24 21:34> Discharge Plan Discharge Clinical Impression: Transaminitis, Pleural effusion, Anasarca, Acute kidney injury, Lymphadenopathy, Pulmonary arterial hypertension <Brenda Gu PA-C - Last Filed: 07/23/24 19:01> Patient Disposition: Still a Patient <Brenda Gu PA-C - Last Filed: 07/23/24 19:01> Condition: Serious <Brenda Gu PA-C - Last Filed: 07/23/24 19:01>
--- NOTE | 2024-07-23 12:15 | ECG_ITS ---
Test Date: 2024-07-23 12:48:33 Measurements Intervals [place] Rate: 98 P: 26 AK: 130 QRS: -28 QRSD: 79 T: 16 QT: 332 QTc: 425 Interpretive Statements SINUS RHYTHM LOW QRS VOLTAGE IN PRECORDIAL LEADS ANTEROSEPTAL INFARCT, AGE INDETERMINATE INFERIOR INFARCT, AGE INDETERMINATE BASELINE ARTIFACT- I, III, AVR ABNORMAL ECG No previous ECG available for comparison Electronically Signed On 07-23-2024 12:49:36 CDT by Daniel Chan D.O.
--- OUTSIDE RECORDS SUMMARY | 2024-07-23 12:28 | XMS_ITS | Clinical Summary ---
Author Organization [facility] Address [address] [facility], [facility] [address] [place] [address] Phone Care Team Providers Care Tool Drawing Checker Name Role Phone Sohail Martínez Primary Care [...] age to complete this topic Insurance MEDICARE [facility] Care Teams Tool Drawing Checker Relationship Specialty Start Date End Date Sohail Martínez PAC [address] [place], [place] [id number] PCP - General Physician Briquette Machine Operator 11/12/19
--- OUTSIDE RECORDS SUMMARY | 2024-07-23 12:28 | XMS_ITS | Clinical Summary ---
Author Organization [facility] Address [address] [place] [address] Care Team Providers Care Web Knitter Name Role Phone Adan Mora MD Primary Care Provider [phone]- [phone] Allergies Active Allergy Reactions Criticality Noted Date [...] 1 tablet (75 mcg total) by mouth psychologist clinical before breakfast 11/16/19 22 Active hydrALAZINE (APRESOLINE) 25 mg tablet Take 1 tablet (25 mg total) by mouth 3 (three) times a day 11/15/19 22 Active Active Problems Problem Noted Date Diagnosed Date Stroke determined by clinical assessment 022 Cerebrovascular accident (CVA), unspecified [facility] 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 Social History Tobacco Use Types Packs/Day Years Used Date Smoking Tobacco: Never Smokeless Tobacco: Never PHQ-2 Answer Date Recorded PHQ-2 Total Score (If total score is 3 or more points, staff should administer the PHQ-9) 0 11/13/2021 Comments Unknown Sex and Gender Information Value Date Recorded Sex Assigned at Not on file Legal 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 Gender Identity Not on file Sexual Orientation [...] Completed 04/20/2020, 02/17/2020 Insurance MEDICARE [facility] MEDICARE [place] [employer] [place] [employer] Advance Directives For more information, please contact: [phone] Documents on File Type Date Recorded Patient Washer Engineer Helper Expl anation ADVANCE DIRECTIVE 07/12/2021 7:39 AM POWER OF C D STRIPPER-MEDICAL * Full Code (Latest Code Status on File) Date Activated Date Inactivated Comments 11/10/2021 8:42 PM 11/14/2021 11:24 PM * Full Code Date Activated Date Inactivated Comments 07/09/2021 6:14 PM 07/12/2021 10:11 PM Care Teams Web Knitter Relationship Specialty Start Date End Date Adan Mora MD [address] [facility] [address] [facility] [address] [place] [address] PCP - General Internal Medicine 08/03/21
--- OUTSIDE RECORDS SUMMARY | 2024-07-23 12:28 | XMS_ITS | Referral Summary ---
Author Organization [facility] Address [address] [place] [address] Care Team Providers Care Professional Skater Name Role Phone Adan Mora MD Primary Care Provider [phone]- [phone] Allergies Active Allergy Reactions Criticality Noted Date [...] 2 (two) times a day 60 tablet 11 07/13/19 22 Active Additional Information Patient not [...] 1 tablet (75 mcg total) by mouth salesperson driver before breakfast 11/16/19 22 Active hydrALAZINE (APRESOLINE) 25 mg tablet Take 1 tablet (25 mg total) by mouth 3 (three) times a day 11/15/19 22 Active Active Problems Problem Noted Date Diagnosed Date Stroke determined by clinical assessment 022 Cerebrovascular accident (CVA), unspecified [facility] 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 Social History Tobacco Use Types Packs/Day Years Used Date Smoking Tobacco: Never Smokeless Tobacco: Never PHQ-2 Answer Date Recorded PHQ-2 Total Score (If total score is 3 or more points, staff should administer the PHQ-9) 0 11/13/2021 Comments Unknown Sex and Gender Information Value Date Recorded Sex Assigned at Not on file Legal 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 Gender Identity Not on file Sexual Orientation [...] of Treatment Not on file Insurance MEDICARE [place] [employer] [place] [employer] [place] [employer] Advance Directives For more information, please contact: [phone] Documents on File Type Date Recorded Patient Rod Mill Operator Expl anation ADVANCE DIRECTIVE 07/12/2021 7:39 AM POWER OF DIRECTOR PHYSICAL THERAPY-MEDICAL * Full Code (Latest Code Status on File) Date Activated Date Inactivated Comments 11/10/2021 8:42 PM 11/14/2021 11:24 PM * Full Code Date Activated Date Inactivated Comments 07/09/2021 6:14 PM 07/12/2021 10:11 PM Care Teams Professional Skater Relationship Specialty Start Date End Date Adan Mora MD [address] [facility] [address] [place] [address] PCP - General Internal Medicine 08/03/21
--- OUTSIDE RECORDS SUMMARY | 2024-07-23 12:48 | XMS_ITS | Clinical Summary ---
Author Organization [facility] Address [address] [place] [address] Care Team Providers Care Consulting Project Director Name Role Phone Adan Mora MD Primary Care Provider [phone]- [phone] Allergies Active Allergy Reactions Criticality Noted Date [...] 1 tablet (75 mcg total) by mouth intern brand before breakfast 11/16/19 22 Active hydrALAZINE (APRESOLINE) 25 mg tablet Take 1 tablet (25 mg total) by mouth 3 (three) times a day 11/15/19 22 Active Active Problems Problem Noted Date Diagnosed Date Stroke determined by clinical assessment 022 Cerebrovascular accident (CVA), unspecified [facility] 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 Social History Tobacco Use Types Packs/Day Years Used Date Smoking Tobacco: Never Smokeless Tobacco: Never PHQ-2 Answer Date Recorded PHQ-2 Total Score (If total score is 3 or more points, staff should administer the PHQ-9) 0 11/13/2021 Comments Unknown Sex and Gender Information Value Date Recorded Sex Assigned at Not on file Legal 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 Gender Identity Not on file Sexual Orientation [...] season) 2023 04/04/2021, 06/27/2020, 05/26/2020 Influenza Vaccine (Season Ended) 2024 12/13/2020, 01/29/2020, 01/16/2019, Additional history exists Zoster Vaccine Completed 04/20/2020, 02/17/2020 Insurance MEDICARE [facility] MEDICARE [employer] Advance Directives For more information, please contact: [phone] Documents on File Type Date Recorded 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
--- OUTSIDE RECORDS SUMMARY | 2024-07-23 12:48 | XMS_ITS | Referral Summary ---
Author Organization [facility] Address [address] [place] [address] Care Team Providers Care Carcass Washer Name Role Phone Adan Mora MD Primary Care Provider [phone]- [phone] Allergies Active Allergy Reactions Criticality Noted Date [...] 1 tablet (75 mcg total) by mouth [employer] worker before breakfast 11/16/19 22 Active hydrALAZINE (APRESOLINE) 25 mg tablet Take 1 tablet (25 mg total) by mouth 3 (three) times a day 11/15/19 22 Active Active Problems Problem Noted Date Diagnosed Date Stroke determined by clinical assessment 022 C[facility]brovascular accident (CVA), 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 Social History Tobacco Use Types Packs/Day Years Used Date Smoking Tobacco: Never Smokeless Tobacco: Never PHQ-2 Answer Date Recorded PHQ-2 Total Score (If total score is 3 or more points, staff should administer the PHQ-9) 0 11/13/2021 Comments Unknown Sex and Gender Information Value Date Recorded Sex Assigned at Not on file 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 Gender Identity Not on file Sexual Orientation [...] of Treatment Not on file Insurance MEDICARE [employer] [employer] MEDICARE [employer] MED[employer] Advance Directives For more information, please contact: [phone] Documents on File Type Date Recorded 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
--- OUTSIDE RECORDS SUMMARY | 2024-07-23 12:48 | XMS_ITS | Clinical Summary ---
Author Organization [facility] Address [address] [facility] [address] [place] [address] Phone Care Team Providers Care Band Builder Name Role Phone Sohail Martínez Primary Care [...] MEDICARE [facility] Care Teams Band Builder Relationship Specialty Start Date End Date Sohail Martínez PAC [address] [place], [place] [id number] PCP - General Physician Palliative Care Nurse Practitioner 11/12/19
[2024-07-23 13:20] LABS: Alanine Aminotransferase 95 U/L (6-35); Albumin Level 3.3 g/dL (3.5-5.1); Alkaline Phosphatase 234 U/L (38-126); Anion Gap 13 mmol/L (4-12); Aspartate Amino Transferase 48 U/L (14-36); Bilirubin,Total 1.6 mg/dL (0.2-1.3); Blood Urea Nitrogen 51 mg/dL (7-17); Calcium 8.9 mg/dL (8.4-10.2); Carbon Dioxide 19 mmol/L (22-30); Chloride 90 mmol/L (98-107); Estimated CRCL calculation 9 ml/min; Estimated Glomerular Filt Rate 15; Glucose 91 mg/dL (65-110); Lipase 17 U/L (23-300); Potassium 4.4 mmol/L (3.4-5.0); Sodium 122 mmol/L (137-145)
[2024-07-23 13:34] LABS: NT Pro B Type Natriuretic Pept 2910 pg/mL (19.9-100)
[2024-07-23 13:37] LABS: Troponin I < 0.012 ng/mL (0.000-0.034)
[2024-07-23 13:48] LABS: Influenza A QL RT-PCR Negative (Negative); Influenza B QL RT-PCR Negative (Negative); RSV RNA, RT-PCR Negative (Negative); SARS-CoV-2 RNA PCR Negative (Negative)
[2024-07-23 14:13] LABS: Basophils Absolute Auto 0.1 K/mm3 (0.0-0.1); Basophils Percent Auto 0.5 % (0.2-1.2); Eosinophils Absolute Auto 0.4 K/mm3 (0-0.3); Eosinophils Percent Auto 3.6 % (0-4.4); Hematocrit 33.1 % (37.0-47.0); Hemoglobin 11.3 g/dL (12.0-15.0); Immature Granulocyte Absolute 0.12 K/mm3 (0.00-0.031); Lymphocytes Absolute Auto 0.97 K/mm3 (0.9-3.2); Lymphocytes Percent Auto 8.1 % (18.3-44.2); Mean Corpuscular HGB Conc 34.1 g/dl (32-36); Mean Corpuscular Volume 93.8 fl (80-100); Mean Platelet Volume 9.3 fl (7.4-10.4); Monocytes Absolute Auto 0.7 K/mm3 (0.1-0.6); Monocytes Percent Auto 6.2 % (2.6-8.5); Neutrophils Absolute Auto 9.7 K/mm3 (1.3-6.7); Neutrophils Percent Auto 80.6 % (45.5-73.1); Platelet Count Result 168 k/mm3 (150-375); Red Blood Count 3.53 M/mm3 (4.2-5.4); Red Cell Distribution Width 18.6 % (11.5-14.5)
[2024-07-23 14:40] LABS: INR 1.3; Prothrombin Time 16.4 Seconds (11.1-14.7)
[2024-07-23 14:41] LABS: Partial Thromboplastin Time 29.7 Seconds (22.3-36.8)
[2024-07-23 15:21] LABS: Add Urine Microscopic? YES; Appearance Urine Cloudy (Clear); Bacteria Urine None Seen /hpf; Bilirubin Urine 1+ (Negative); Blood Urine Negative (Negative); Color Urine Dark Yellow (Yellow); Glucose Urine UA Negative (Negative); Ketones Urine Trace mg/dL (Negative); Leukocyte Esterase Ur Negative LEU/UL (Negative); Need Manual Microscopic Reviewed; Nitrate Urine Negative (Negative); Non Pathogenic Casts >20; Protein Urine 1+ mg/dL (Negative); RBC Urine 0-2 /hpf (0-2); Specific Grav Ur 1.017 (1.001-1.035); Squamous Epithelial Cell Urine Few /hpf (Few); Urobilinogen Urine 0.2 mg/dL (<2.0); WBC Urine 0-5 /hpf (0-3)
[2024-07-23 16:15] LABS: Troponin I < 0.012 ng/mL (0.000-0.034)
[2024-07-23] MEDS: MORPHINE SULFATE (*CRX) 2 MG/ML INJ IV PUSH (17:18)
[2024-07-23] MEDS: LACTATED RINGERS 1,000 ML 125 ML IV CONT (17:19)
--- NOTE | 2024-07-23 17:30 | ADMGEN ---
This patient, Anuradha Hager, was admitted to Medical Room 244-. Patient/family oriented to hospital policies and general routines including ID bracelet, bed and alarms, visiting hours, pain management, procedures, bathroom and other care routines, personal items, smoking policy, room service/diet, and visiting hours. Information on how to activate the Rapid Response Team has been discussed. Patient/Family are encouraged to report perceived risks to care and to ask questions if they do not understand what they are told or what they should do.
[2024-07-23 19:43] LABS: Troponin I < 0.012 ng/mL (0.000-0.034)
[2024-07-23] MEDS: FAMOTIDINE 20 MG TABLET PO (21:15)
[2024-07-24] VITALS (11 sets, daily range): BP systolic 96–117; BP diastolic 57–65; PULSE 94–108; RESP 16–18; TEMP 36.4–37.2; O2SAT 97–99
[2024-07-24] MEDS: LEVOTHYROXINE SODIUM 50 MCG TABLET PO (05:48)
[2024-07-24 06:00] LABS: Alanine Aminotransferase 60 U/L (6-35); Albumin Level 2.5 g/dL (3.5-5.1); Alkaline Phosphatase 169 U/L (38-126); Anion Gap 10 mmol/L (4-12); Aspartate Amino Transferase 24 U/L (14-36); Bilirubin,Total 1.4 mg/dL (0.2-1.3); Blood Urea Nitrogen 54 mg/dL (7-17); Calcium 8.2 mg/dL (8.4-10.2); Carbon Dioxide 21 mmol/L (22-30); Chloride 91 mmol/L (98-107); Estimated CRCL calculation 9 ml/min; Estimated Glomerular Filt Rate 14; Glucose 71 mg/dL (65-110); Potassium 4.7 mmol/L (3.4-5.0); Sodium 122 mmol/L (137-145)
--- NOTE | 2024-07-24 06:26 | P.HP_ITS ---
H&P: HPI History of Present Illness Date/Time: 07/24/24 02:00 Chief Complaint: Coughing for months Narrative: 88-year-old female with a past medical history of CVA, essential hypertension, irritable bowel syndrome and hypothyroidism who presented to the ER from home in the company of family due to coughing. The patient reports that she has had a progressive cough for several months. Cough is productive of copious amounts of clear sputum. It is been accompanied by a generalized weakness fatigue as well as generalized anorexia. She states she does not have any difficulty swallowing she just does not have any appetite. She reports that she has been having some pain in her left ribs associated with cough. She has noticed multiple areas of swollen bumps behind her years in her neck. She reported a few times that the bumps had been read but they have never been painful. She has had developed some abdominal distension and swelling in her legs her cough is been going on for about 4 months her abdominal distension and lower extremity swelling is been going on for 3 months. The patient had been on Lasix but was taken off due to electrolyte derangements. The patient does not have a history of CHF and had echocardiogram in June of 2023 with EF of 60 65% grade 1 diastolic dysfunction slightly elevated E/E mild to moderate mitral valve regurgitation mild tricuspid regurgitation without evidence of pulmonary hypertension.. She denies any palpitations. She has been having some shortness of breath is worse with exertion. Review of Systems 2 Review of Systems: 12 systems were reviewed with pertinent positives and negatives per HPI. Except as documented in the HPI, all other systems were reviewed and are negative. 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 Mother Heart disease Aortic aneurysm Social History Social History (Updated 07/24/24 @ 06:53 by Marily Verde DO) Social History: The patient has been for 26 years. She and her were for close to 50 years that some of his . She and her raised 3 children. Two of her children live locally. She is a lifelong nonsmoker and does not drink alcohol. She ambulates with a walker. Code status: DNR/DNI (per patient request) Healthcare power of sports attorney: Kenzie Amador Smoking status: Never smoker Second hand tobacco smoke exposure: Yes Alcohol intake: never Substance use: never Substance use type: does not use Do You Feel Safe in your Home?: Yes Lack of Transportation: No Lack of Food: Never True Current Housing: I Have Housing Concerned About Future Housing: No Difficulty Paying Gas/Electric Bills: No Difficulty Paying for Meds: No Currently Unemployed: No Education: High School Diploma/GED Difficulty w/ Childcare or Family Care: No Living arrangements: alone Occupation/Education: retired 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 Gender identity (if verbalized by the patient): Female Spiritual care concerns: No Meds Home Medications and Allergies Home Medications ?Medication ?Instructions ?Recorded ?Confirmed ?Type aspirin 325 mg tablet 325 mg PO DAILY@0800 #0 tabs 07/26/21 07/23/24 Rx acetaminophen 325 mg tablet See Rx Instructions .Route 11/15/21 07/23/24 History .COMPLEX PRN Pain levothyroxine 50 mcg tablet 50 mcg PO DAILY #90 tabs 04/28/24 07/23/24 Rx fluticasone propionate 50 2 spray intranasal DAILY #16 grams 05/19/24 07/23/24 Rx mcg/actuation nasal spray,suspension (Flonase Allergy Relief) food supplemt, lactose-reduced 1 ea PO TID #2,844 mL 06/08/24 07/23/24 Rx 0.08 gram-1.1 kcal/mL oral liquid (Boost High Protein) furosemide 20 mg tablet (Lasix) 20 mg PO QAM #30 tabs 06/16/24 07/23/24 Rx albuterol sulfate 2.5 mg/3 mL 2.5 mg inhalation Q6H 07/17/24 07/23/24 History (0.083 %) solution for nebulization budesonide-formoterol HFA 80 2 puff inhalation Q12H #10.2 grams 07/17/24 07/23/24 Rx mcg-4.5 mcg/actuation aerosol inhaler (Symbicort) megestrol 40 mg tablet 40 mg PO BID #60 tabs 07/17/24 07/23/24 Rx atorvastatin 40 mg tablet See Rx Instructions .Route 07/21/24 07/23/24 Rx .COMPLEX #90 tabs Allergies Allergy/AdvReac Type Severity Reaction Status Date / Time No Known Allergies Allergy NONE Verified 07/23/24 17:38 Vital Signs Vital Signs - 24 hr 07/23/24 11:56 07/23/24 14:00 07/23/24 14:25 Temperature 97.7 F 97.8 F Pulse Rate 93 101 H Respiratory Rate 16 22 H Blood Pressure 98/62 L 128/76 Pulse Oximetry 98 96 Oxygen Delivery Room Air Room Air 07/23/24 15:06 07/23/24 16:00 07/23/24 17:00 Temperature 97.6 F 97.8 F 97.8 F Pulse Rate 105 H 116 H 114 H Respiratory Rate 22 H 18 20 Blood Pressure 118/77 104/54 L 123/68 Pulse Oximetry 96 96 96 Oxygen Delivery 07/23/24 19:40 07/23/24 20:00 07/23/24 21:06 Temperature 98.6 F Pulse Rate 101 H 99 Respiratory Rate 16 Blood Pressure 99/57 L Pulse Oximetry 100 Oxygen Delivery Room Air 07/24/24 00:00 07/24/24 04:00 07/24/24 05:24 Temperature 97.9 F Pulse Rate 94 97 103 H Respiratory Rate 16 Blood Pressure 117/65 Pulse Oximetry 98 Oxygen Delivery Exam 2 Narrative: Weight 54.2 kilos BMI 22.6 Const: Other: Acutely ill-appearing, elderly, debilitated HENMT: Other: Mucous membranes are tacky, upper and lower dentures in place, head is normocephalic atraumatic Eyes: Other: Bilateral lens implants noted, mild scleral icterus, positive conjunctival pallor Neck: Other: Marked posterior cervical lymphadenopathy anterior cervical lymphadenopathy also noted but to lesser extent, supraclavicular lymphadenopathy also noted bilaterally but right greater than left lymphadenopathy is nontender she also has posterior reticular lymphadenopathy Chest: Other: Marked axillary lymphadenopathy bilateral left greater than right, no tenderness palpation Resp: Other: Regular rate, coarse rhonchi that clear somewhat with cough Cardio: Other: Regular rate, 2/6 murmur, no overt JVD on exam GI: Other: Distended, bite, no fluid wave, subcutaneous edema noted Skin: Other: Generalized pallor, mildly jaundice Neuro: Other: Alert orient x4, speech is clear, occasional difficulty with word finding, moves all extremities equally, no localizing neurologic deficits noted during the course of conversation Extrem: Other: Anasarca and edema of the lower extremities up into the thighs, moves all extremities equally Psych: Other: Appropriate mood and affect, pleasant and cooperative, judgment and insight intact H&P: Results Labs Labs: Laboratory Tests 07/23/24 13:59 07/24/24 05:39 07/23/24 07/23/24 07/23/24 13:02 13:59 14:50 WBC 12.0 H RBC 3.53 L Hgb 11.3 L Hct 33.1 L MCV 93.8 MCH 32.0 MCHC 34.1 RDW 18.6 H Plt Count 168 MPV 9.3 Immature Gran % (Auto) 1.0 H Neut % (Auto) 80.6 H Lymph % (Auto) 8.1 L [place] % (Auto) 6.2 Eos % (Auto) 3.6 Baso % (Auto) 0.5 Lymph # (Auto) 0.97 [place]dwell # (Auto) 0.7 H Eos # (Auto) 0.4 H Baso # (Auto) 0.1 Abs Immat Gran (auto) 0.12 H Absolute Neuts (auto) 9.7 H Absolute Nucleated RBC 0.000 Nucleated RBC % 0.0 PT 16.4 H INR 1.3 APTT 29.7 Sodium 122 L Potassium 4.4 Chloride 90 L Carbon Dioxide 19 L Anion Gap 13 H BUN 51 H D Creatinine 3.02 H Estim Creat Clear Calc 9 Estimated GFR 15 L Glucose 91 Calcium 8.9 Total Bilirubin 1.6 H AST 48 H ALT 95 H Alkaline Phosphatase 234 H Troponin I < 0.012 NT-Pro-B Natriuret Pep 2910 H Total Protein 5.0 L Albumin 3.3 L Lipase 17 L Urine Color Dark yellow Urine Appearance Cloudy H Urine pH 5.0 Ur Specific [place] 1.017 Urine Protein 1+ H Urine Glucose (UA) Negative Urine Ketones Trace H Ur Blood (Man) Negative Urine Nitrate Negative Urine Bilirubin 1+ H Urine Urobilinogen 0.2 Add Ur Microanalysis Reviewed Leukocyte Esterase Rfl Negative Urine RBC 0-2 Urine WBC 0-5 Ur Squamous Epith Cells Few Urine Bacteria None seen Urine Casts >20 Hyaline Casts 1-2 Granular Casts 3-4 H Influenza A (RT-PCR) Negative Influenza B (RT-PCR) Negative RSV (RT-PCR) Negative SARS-CoV-2 RNA (RT-PCR) Negative 07/23/24 07/23/24 07/24/24 15:48 19:17 05:39 WBC RBC Hgb Hct MCV MCH MCHC RDW Plt Count MPV Immature Gran % (Auto) Neut % (Auto) Lymph % (Auto) [place] % (Auto) Eos % (Auto) Baso % (Auto) Lymph # (Auto) [place] # (Auto) Eos # (Auto) Baso # (Auto) Abs Immat Gran (auto) Absolute Neuts (auto) Absolute Nucleated RBC Nucleated RBC % PT INR APTT Sodium 122 L Potassium 4.7 Chloride 91 L Carbon Dioxide 21 L Anion Gap 10 BUN 54 H Creatinine 3.04 H Estim Creat Clear Calc 9 Estimated GFR 14 L Glucose 71 Calcium 8.2 L Total Bilirubin 1.4 H AST 24 ALT 60 H Alkaline Phosphatase 169 H Troponin I < 0.012 < 0.012 NT-Pro-B Natriuret Pep Total Protein 4.0 L Albumin 2.5 L Lipase Urine Color Urine Appearance Urine pH Ur Specific [place] Urine Protein Urine Glucose (UA) Urine Ketones Ur Blood (Man) Urine Nitrate Urine Bilirubin Urine Urobilinogen Add Ur Microanalysis Leukocyte Esterase Rfl Urine RBC Urine WBC Ur Squamous Epith Cells Urine Bacteria Urine Casts Hyaline Casts Granular Casts Influenza A (RT-PCR) Influenza B (RT-PCR) RSV (RT-PCR) SARS-CoV-2 RNA (RT-PCR) Impressions Chest X-Ray 07/23/24 12:39 IMPRESSION: Bilateral pleural effusions, right greater than left. Chest/Abdomen/Pelvis CT 07/23/24 14:50 IMPRESSION: 1. Extensive lymphadenopathy at the neck, chest, abdomen, pelvis and bilateral inguinal regions concerning for lymphoma with differential including other metastatic disease. Recommend ultrasound-guided biopsy for the axillary lymph nodes. 2. Anasarca with moderate sized right, small left pleural effusions, small pericardial effusion, small amount of ascites and extensive soft tissue edema. 3. Small region of tree-in-bud opacity in the anterior right upper lobe suggesting bronchiolitis related to endobronchial spread of disease. 4. Enlargement of the central pulmonary arteries consistent with pulmonary arterial hypertension. EKG:Test Date: 2024-07-23 12:48:33 Measurements Intervals Ray Rate: 98 P: 26 ND: 130 QRS: -28 QRSD: 79 T: 16 QT: 332 QTc: 425 Interpretive Statements SINUS RHYTHM LOW QRS VOLTAGE IN PRECORDIAL LEADS ANTEROSEPTAL INFARCT, AGE INDETERMINATE INFERIOR INFARCT, AGE INDETERMINATE BASELINE ARTIFACT- I, III, AVR ABNORMAL ECG No previous ECG available for comparison Assessment and Plan Assessment and plan (1) Lymphadenopathy: Code(s): R59.1 - Generalized enlarged lymph nodes Status: Acute Assessment and Plan: Imaging highly suspicious of diffuse metastatic disease versus lymphoma. The patient was alert orient x4 states that she does not want treatment with chemotherapy even if we were to know the source of the malignancy. She prefers to proceed with palliative care and comfort. She would like to discuss the options of hospice. She is cognizant that if she were to receive chemotherapy that she would not do well. She states that her daughter in-law suffered after starting chemotherapy and she does not want to go down that road. (2) Pulmonary arterial hypertension: Code(s): I27.21 - Secondary pulmonary arterial hypertension Status: Acute Assessment and Plan: The patient had echocardiogram last year that did not demonstrate any evidence of pulmonary hypertension. Given new acute pulmonary hypertension she certainly could have underlying pulmonary embolism. CT scan had been performed without contrast. Will obtain lower extremity ultrasound to see if patient may have DVT. (3) Transaminitis: Code(s): R74.01 - Elevation of levels of liver transaminase levels Status: Acute Assessment and Plan: Patient appears to have some chronic transaminitis but could certainly also be in part due to malignancy. (4) Acute kidney injury: Code(s): N17.9 - Acute kidney failure, unspecified Status: Acute Assessment and Plan: Likely prerenal in nature. Some component of dehydration. Cannot rule out tumor lysis. Will check uric acid level. Patient is not on any nephrotoxic medications at baseline. (5) Anasarca: Code(s): R60.1 - Generalized edema Status: Acute Assessment and Plan: Likely due to malignancy decreased synthetic function hypoalbuminemia. (6) Pleural effusion: Code(s): J90 - Pleural effusion, not elsewhere classified Status: Acute Assessment and Plan: Likely due to third-spacing and or underlying malignancy. Patient does not want thoracentesis. (7) Acute hyponatremia: Code(s): E87.1 - Hypo-osmolality and hyponatremia Status: Acute Assessment and Plan: Acute on chronic hyponatremia likely multifactorial due to dehydration and likely underlying malignancy. Repeat sodium has remained stable. (8) Hypoalbuminemia: Code(s): E88.09 - Other disorders of plasma-protein metabolism, not elsewhere classified Status: Acute (9) Dehydration: Code(s): E86.0 - Dehydration Status: Acute Assessment and Plan: Will continue IV fluid hydration. Will monitor electrolytes. Will see if we can improve patient's level of comfort inch maybe Estuardo tolerate some diet. She denies improvement in her symptoms with appetite stimulants. (10) Acute anemia: Code(s): D64.9 - Anemia, unspecified Status: Acute Assessment and Plan: Likely due to suspected underlying malignancy. However will check stool for occult blood. Will check anemia labs. Plan Will place consult for care coordination for referral to hospice. Will proceed with pain medications. Repeat CBC. Given possible inflammation bronchiectasis there could be underlying infection given leukocytosis. Will place patient on antibiotic therapy see if this will help the patient's symptoms although I doubt this will offer significant improvement. Patient is not a candidate pharmacologic DVT prophylaxis given her acute anemia. Will hold off on placing SCDs until venous Doppler being completed. Hospitalist [facility] Advance Care Plan I have confirmed that the patient's Advanced Care Plan is present, code status is documented, or surrogate decision maker is listed in patient medical record.: Yes Medication Reconciliation I have utilized all available resources to obtain, update and review the patients current medications (includes all prescriptions, OTC, herbals, cannabis, and nutritional supplements).: Yes
[2024-07-24] MEDS: BENZOCAINE/MENTHOL (*BKC) 18 EA LOZENGE 1 LOZENGE PO (06:42)
[2024-07-24 07:24] LABS: Basophils Absolute Auto 0.1 K/mm3 (0.0-0.1); Basophils Percent Auto 0.7 % (0.2-1.2); Eosinophils Absolute Auto 0.7 K/mm3 (0-0.3); Eosinophils Percent Auto 6.6 % (0-4.4); Hematocrit 27.4 % (37.0-47.0); Hemoglobin 9.5 g/dL (12.0-15.0); Immature Granulocyte Absolute 0.12 K/mm3 (0.00-0.031); Immature Granulocyte Percent A 1.1 % (0-0.5); Lymphocytes Absolute Auto 1.08 K/mm3 (0.9-3.2); Lymphocytes Percent Auto 10.1 % (18.3-44.2); Mean Corpuscular HGB Conc 34.7 g/dl (32-36); Mean Corpuscular Hemoglobin 32.3 pg (26-34); Mean Corpuscular Volume 93.2 fl (80-100); Mean Platelet Volume 9.6 fl (7.4-10.4); Monocytes Percent Auto 9.2 % (2.6-8.5); Neutrophils Absolute Auto 7.8 K/mm3 (1.3-6.7); Neutrophils Percent Auto 72.3 % (45.5-73.1); Platelet Count Result 150 k/mm3 (150-375); Red Blood Count 2.94 M/mm3 (4.2-5.4); Red Cell Distribution Width 18.5 % (11.5-14.5); White Blood Count 10.7 K/mm3 (4.5-10.0)
[2024-07-24 07:30] LABS: Creatine Kinase 24 U/L (30-135)
[2024-07-24 08:08] LABS: Immature Reticulocyte Fraction 16.8 % (3.0-15.9); Reticulocyte Hemoglobin Conten 35.3 pg (28.2-36.6); Reticulocyte Percent 5.82 % (0.7-4.3); Reticulocytes Absolute 0.18 10^6/uL (0.02-0.10)
[2024-07-24 08:13] LABS: Iron 94 ug/dL (37-170)
[2024-07-24 08:23] LABS: Percent Iron Saturation 45 % (20-50)
[2024-07-24] MEDS: MEGESTROL ACETATE (*CHEMO) 40 MG TABLET PO ×2 (09:35→17:13)
[2024-07-24] MEDS: FAMOTIDINE 20 MG TABLET PO ×2 (09:35→21:01)
[2024-07-24] MEDS: FLUTICASONE PROPIONATE 0.05% NA SPR 16 GM BTL (*BKC) 2 SPRAY NASAL (09:40)
--- NOTE | 2024-07-24 13:46 | P.PNIM_ITS ---
Progress Note: A&P Assessment and Plan (1) Lymphadenopathy: Code(s): R59.1 - Generalized enlarged lymph nodes Status: Acute Assessment and Plan: Imaging highly suspicious of diffuse metastatic disease versus lymphoma. The patient was alert orient x4 states that she does not want treatment with chemotherapy even if we were to know the source of the malignancy. She prefers to proceed with palliative care and comfort. Discussed hospice and will have a meeting today. Plan to go home with hospice. (2) Pulmonary arterial hypertension: Code(s): I27.21 - Secondary pulmonary arterial hypertension Status: Acute Assessment and Plan: The patient had echocardiogram last year that did not demonstrate any evidence of pulmonary hypertension. Given new acute pulmonary hypertension she certainly could have underlying pulmonary embolism. CT scan had been performed without contrast. Venous duplex negative for DVT (3) Transaminitis: Code(s): R74.01 - Elevation of levels of liver transaminase levels Status: Acute Assessment and Plan: Patient appears to have some chronic transaminitis but could certainly also be in part due to malignancy. (4) Acute kidney injury: Code(s): N17.9 - Acute kidney failure, unspecified Status: Acute Assessment and Plan: Likely prerenal in nature. Some component of dehydration. Cannot rule out tumor lysis. Uric acid levels were elevated. Patient is not on any nephrotoxic medications at baseline. (5) Anasarca: Code(s): R60.1 - Generalized edema Status: Acute Assessment and Plan: Likely due to malignancy decreased synthetic function hypoalbuminemia. (6) Pleural effusion: Code(s): J90 - Pleural effusion, not elsewhere classified Status: Acute Assessment and Plan: Likely due to third-spacing and or underlying malignancy. Patient does not want thoracentesis. (7) Acute hyponatremia: Code(s): E87.1 - Hypo-osmolality and hyponatremia Status: Acute Assessment and Plan: Acute on chronic hyponatremia likely multifactorial due to dehydration and likely underlying malignancy. Repeat sodium has remained stable. (8) Hypoalbuminemia: Code(s): E88.09 - Other disorders of plasma-protein metabolism, not elsewhere classified Status: Acute (9) Dehydration: Code(s): E86.0 - Dehydration Status: Acute Assessment and Plan: Treated with IV hydration (10) Acute anemia: Code(s): D64.9 - Anemia, unspecified Status: Acute Assessment and Plan: Likely due to suspected underlying malignancy. However will check stool for occult blood. Will check anemia labs. Plan Hospice consult Patient is not a candidate pharmacologic DVT prophylaxis given her acute anemia. Will hold off on placing SCDs until venous Doppler being completed. Subjective Date/time seen: 07/24/24 13:46 Interval history: No new complaints. Discussed findings with the patient and the family. No further workup opted by the patient Review of Systems Review of Systems: All systems reviewed & are unremarkable except as noted in HPI and below Exam Narrative: APPEARANCE: Uncomfortable appearing not in acute distress HEAD: normocephalic, atraumatic. EYES: PERRLA/EOMI, conjunctivae clear. NOSE: Normal no drainage THROAT: Pharynx clear, no exudate. NECK: Supple. No adenopathy, no masses. RESPIRATORY: Airway patent, respirations nonlabored. Clear to auscultation bilaterally, no rales, rhonchi, wheezing. CARDIOVASCULAR: Regular rate and rhythm without murmurs rubs or gallops. ABDOMINAL: Soft, nontender, nondistended, normal bowel sounds MUSCULOSKELETAL: Moves all extremities. Strength/ROM intact, No edema, No calf tenderness. NEURO: Alert. Cranial nerves II through XII intact. Good gait. Good coordination SKIN: Warm, dry. Normal Color Objective Data Vital Signs Vital Signs: Vital Signs - 24 hr 07/23/24 14:00 07/23/24 14:25 07/23/24 15:06 Temperature 97.8 F 97.6 F Pulse Rate 101 H 105 H Respiratory Rate 22 H 22 H Blood Pressure 128/76 118/77 Pulse Oximetry 96 96 Oxygen Delivery Room Air Fraction of Inspired Oxygen 07/23/24 16:00 07/23/24 17:00 07/23/24 19:40 Temperature 97.8 F 97.8 F 98.6 F Pulse Rate 116 H 114 H 101 H Respiratory Rate 18 20 16 Blood Pressure 104/54 L 123/68 99/57 L Pulse Oximetry 96 96 100 Oxygen Delivery Fraction of Inspired Oxygen 07/23/24 20:00 07/23/24 21:06 07/24/24 00:00 Temperature Pulse Rate 99 94 Respiratory Rate Blood Pressure Pulse Oximetry Oxygen Delivery Room Air Fraction of Inspired Oxygen 07/24/24 04:00 07/24/24 05:24 07/24/24 07:20 Temperature 97.9 F 97.5 F L Pulse Rate 97 103 H 102 H Respiratory Rate 16 18 Blood Pressure 117/65 96/64 L Pulse Oximetry 98 98 Oxygen Delivery Fraction of Inspired Oxygen 07/24/24 08:35 Temperature Pulse Rate Respiratory Rate Blood Pressure Pulse Oximetry 97 Oxygen Delivery Room Air Fraction of Inspired Oxygen 21 Intake/Output Intake/Output: Intake & Output 07/21/24 07/22/24 07/23/24 07/24/24 23:59 23:59 23:59 23:59 Intake Total 200 350 Output Total 25 Balance 175 350 Meds/Results Medications: Active Medications Generic Name Dose Route Start Last Admin Trade Name Freq PRN Reason Stop Dose Admin Acetaminophen 650 mg 07/23/24 20:27 Acetaminophen 325 Mg Tablet PO Q4H PRN Mild Pain (1-3) or Fever Benzocaine 1 lozenge 07/24/24 06:27 07/24/24 06:42 Benzocaine/Menthol (*Bkc) 18 Ea Lozenge PO 1 lozenge PRN PRN Administration Sore Throat Famotidine 20 mg 07/23/24 21:00 07/24/24 09:35 Famotidine 20 Mg Tablet PO 20 mg Q12HR KEEGAN Administration Fluticasone Propionate 2 spray 07/24/24 09:00 07/24/24 09:40 Fluticasone Propionate 0.05% Na Spr 16 Gm Btl (*Bkc) NASAL 2 spray DAILY KEEGAN Administration Levothyroxine Sodium 50 mcg 07/24/24 06:30 07/24/24 05:48 Levothyroxine Sodium 50 Mcg Tablet PO 50 mcg DAILY@0630 KEEGAN Administration Megestrol Acetate 40 mg 07/24/24 09:00 07/24/24 09:35 Megestrol Acetate (*Chemo) 40 Mg Tablet PO 40 mg BID KEEGAN Administration Morphine Sulfate 2 mg 07/23/24 20:27 Morphine Sulfate (*Crx) 2 Mg/Ml Inj IV PUSH Q4H PRN Pain Rated 7-10 Ondansetron HCl 4 mg 07/23/24 20:27 Ondansetron Inj 4 Mg/2 Ml Vial IV PUSH Q6H PRN Nausea And Vomiting Tramadol HCl 25 mg 07/23/24 20:27 Tramadol Hcl (*Crx) 25 Mg Tablet PO Q6H PRN Pain Rated 4-6 Radiology Results: ITS Impressions Chest X-Ray 07/23/24 12:39 IMPRESSION: Bilateral pleural effusions, right greater than left. Chest/Abdomen/Pelvis CT 07/23/24 14:50 IMPRESSION: 1. Extensive lymphadenopathy at the neck, chest, abdomen, pelvis and bilateral inguinal regions concerning for lymphoma with differential including other metastatic disease. Recommend ultrasound-guided biopsy for the axillary lymph nodes. 2. Anasarca with moderate sized right, small left pleural effusions, small pericardial effusion, small amount of ascites and extensive soft tissue edema. 3. Small region of tree-in-bud opacity in the anterior right upper lobe suggesting bronchiolitis related to endobronchial spread of disease. 4. Enlargement of the central pulmonary arteries consistent with pulmonary arterial hypertension. Venous Doppler Study 07/24/24 09:14 IMPRESSION: 1. No deep venous thrombosis. Labs Labs: Laboratory Results - last 24 hr 07/23/24 07/23/24 07/23/24 13:02 13:59 14:50 WBC 12.0 H RBC 3.53 L Hgb 11.3 L Hct 33.1 L MCV 93.8 MCH 32.0 MCHC 34.1 RDW 18.6 H Plt Count 168 MPV 9.3 Immature Gran % (Auto) 1.0 H Neut % (Auto) 80.6 H Lymph % (Auto) 8.1 L [place] % (Auto) 6.2 Eos % (Auto) 3.6 Baso % (Auto) 0.5 Lymph # (Auto) 0.97 [place] # (Auto) 0.7 H Eos # (Auto) 0.4 H Baso # (Auto) 0.1 Abs Immat Gran (auto) 0.12 H Absolute Neuts (auto) 9.7 H Absolute Nucleated RBC 0.000 Nucleated RBC % 0.0 Absolute Retic Percent Retic Immature Retic Fraction Retic Hgb Content PT 16.4 H INR 1.3 APTT 29.7 Sodium Potassium Chloride Carbon Dioxide Anion Gap BUN Creatinine Estim Creat Clear Calc Estimated GFR Glucose Uric Acid Calcium Iron TIBC % Saturation Ferritin Total Bilirubin AST ALT Alkaline Phosphatase Total Creatine Kinase Troponin I Total Protein Albumin Urine Color Dark yellow Urine Appearance Cloudy H Urine pH 5.0 Ur Specific [place] 1.017 Urine Protein 1+ H Urine Glucose (UA) Negative Urine Ketones Trace H Ur Blood (Man) Negative Urine Nitrate Negative Urine Bilirubin 1+ H Urine Urobilinogen 0.2 Add Ur Microanalysis Reviewed Leukocyte Esterase Rfl Negative Urine RBC 0-2 Urine WBC 0-5 Ur Squamous Epith Cells Few Urine Bacteria None seen Urine Casts >20 Hyaline Casts 1-2 Granular Casts 3-4 H Influenza A (RT-PCR) Negative Influenza B (RT-PCR) Negative RSV (RT-PCR) Negative SARS-CoV-2 RNA (RT-PCR) Negative 07/23/24 07/23/24 07/24/24 15:48 19:17 05:37 WBC 10.7 H RBC 2.94 L Hgb 9.5 L Hct 27.4 L MCV 93.2 MCH 32.3 MCHC 34.7 RDW 18.5 H Plt Count 150 MPV 9.6 Immature Gran % (Auto) 1.1 H Neut % (Auto) 72.3 Lymph % (Auto) 10.1 L [place] % (Auto) 9.2 H Eos % (Auto) 6.6 H Baso % (Auto) 0.7 Lymph # (Auto) 1.08 [place] # (Auto) 1.0 H Eos # (Auto) 0.7 H Baso # (Auto) 0.1 Abs Immat Gran (auto) 0.12 H Absolute Neuts (auto) 7.8 H Absolute Nucleated RBC 0.000 Nucleated RBC % 0.0 Absolute Retic 0.18 H Percent Retic 5.82 H Immature Retic Fraction 16.8 H Retic Hgb Content 35.3 PT INR APTT Sodium Potassium Chloride Carbon Dioxide Anion Gap BUN Creatinine Estim Creat Clear Calc Estimated GFR Glucose Uric Acid 11.0 H Calcium Iron 94 TIBC 210 L % Saturation 45 Ferritin 436.00 H Total Bilirubin AST ALT Alkaline Phosphatase Total Creatine Kinase 24 L Troponin I < 0.012 < 0.012 Total Protein Albumin Urine Color Urine Appearance Urine pH Ur Specific [place] Urine Protein Urine Glucose (UA) Urine Ketones Ur Blood (Man) Urine Nitrate Urine Bilirubin Urine Urobilinogen Add Ur Microanalysis Leukocyte Esterase Rfl Urine RBC Urine WBC Ur Squamous Epith Cells Urine Bacteria Urine Casts Hyaline Casts Granular Casts Influenza A (RT-PCR) Influenza B (RT-PCR) RSV (RT-PCR) SARS-CoV-2 RNA (RT-PCR) 07/24/24 05:39 WBC RBC Hgb Hct MCV MCH MCHC RDW Plt Count MPV Immature Gran % (Auto) Neut % (Auto) Lymph % (Auto) [place] % (Auto) Eos % (Auto) Baso % (Auto) Lymph # (Auto) [place] # (Auto) Eos # (Auto) Baso # (Auto) Abs Immat Gran (auto) Absolute Neuts (auto) Absolute Nucleated RBC Nucleated RBC % Absolute Retic Percent Retic Immature Retic Fraction Retic Hgb Content PT INR APTT Sodium 122 L Potassium 4.7 Chloride 91 L Carbon Dioxide 21 L Anion Gap 10 BUN 54 H Creatinine 3.04 H Estim Creat Clear Calc 9 Estimated GFR 14 L Glucose 71 Uric Acid Calcium 8.2 L Iron TIBC % Saturation Ferritin Total Bilirubin 1.4 H AST 24 ALT 60 H Alkaline Phosphatase 169 H Total Creatine Kinase Troponin I Total Protein 4.0 L Albumin 2.5 L Urine Color Urine Appearance Urine pH Ur Specific [place] Urine Protein Urine Glucose (UA) Urine Ketones Ur Blood (Man) Urine Nitrate Urine Bilirubin Urine Urobilinogen Add Ur Microanalysis Leukocyte Esterase Rfl Urine RBC Urine WBC Ur Squamous Epith Cells Urine Bacteria Urine Casts Hyaline Casts Granular Casts Influenza A (RT-PCR) Influenza B (RT-PCR) RSV (RT-PCR) SARS-CoV-2 RNA (RT-PCR)
[2024-07-24] MEDS: LORazepam (*CRX) 0.5 MG TABLET PO (21:50)
[2024-07-24] MEDS: SALINE 0.65% NAS SOLN 44 ML BTL 1 SPRAY NASAL (21:50)
[2024-07-25] VITALS: PULSE 100
[2024-07-25] MEDS: hydrOXYzine HCL 10 MG TABLET PO (02:54)
[2024-07-25] MEDS: LEVOTHYROXINE SODIUM 50 MCG TABLET PO (05:45)
[2024-07-25 06:00] VITALS: BP 110/63; PULSE 98; RESP 18; TEMP 36.9; O2SAT 97
[2024-07-25 07:47] LABS: Haptoglobin <10 mg/dL (43-212)
--- NOTE | 2024-07-25 13:08 | PM.DS ---
DS: Admitting Diagnosis Discharge Date 07/25/2024 Admitting Diagnosis weakness DS: Discharge Diagnosis Discharge Diagnosis (1) Lymphadenopathy: Code(s): R59.1 - Generalized enlarged lymph nodes Status: Acute (2) Pulmonary arterial hypertension: Code(s): I27.21 - Secondary pulmonary arterial hypertension Status: Acute (3) Transaminitis: Code(s): R74.01 - Elevation of levels of liver transaminase levels Status: Acute (4) Acute kidney injury: Code(s): N17.9 - Acute kidney failure, unspecified Status: Acute (5) Anasarca: Code(s): R60.1 - Generalized edema Status: Acute (6) Pleural effusion: Code(s): J90 - Pleural effusion, not elsewhere classified Status: Acute (7) Acute hyponatremia: Code(s): E87.1 - Hypo-osmolality and hyponatremia Status: Acute (8) Hypoalbuminemia: Code(s): E88.09 - Other disorders of plasma-protein metabolism, not elsewhere classified Status: Acute (9) Dehydration: Code(s): E86.0 - Dehydration Status: Acute (10) Acute anemia: Code(s): D64.9 - Anemia, unspecified Status: Acute DS: Summary Hospital Course Hospital Course: # Lymphadenopathy: Imaging highly suspicious of diffuse metastatic disease versus lymphoma. The patient was alert orient x4 states that she does not want treatment with chemotherapy even if we were to know the source of the malignancy. She prefers to proceed with palliative care and comfort. Discussed hospice and had a meeting. going home with hospice care. # Pulmonary arterial hypertension: The patient had echocardiogram last year that did not demonstrate any evidence of pulmonary hypertension. Given new acute pulmonary hypertension she certainly could have underlying pulmonary embolism. CT scan had been performed without contrast. Venous duplex negative for DVT # Transaminitis: Patient appears to have some chronic transaminitis but could certainly also be in part due to malignancy. # Acute kidney injury: Likely prerenal in nature. Some component of dehydration. Cannot rule out tumor lysis. Uric acid levels were elevated. Patient is not on any nephrotoxic medications at baseline. # Anasarca: Likely due to malignancy decreased synthetic function hypoalbuminemia. # Pleural effusion: Likely due to third-spacing and or underlying malignancy. Patient does not want thoracentesis. # Acute hyponatremia: Acute on chronic hyponatremia likely multifactorial due to dehydration and likely underlying malignancy. Repeat sodium has remained stable. # Hypoalbuminemia: # Dehydration: Treated with IV hydration # Acute anemia: Likely due to suspected underlying malignancy. However will check stool for occult blood. Will check anemia labs. # DVT Proph: Patient is not a candidate pharmacologic DVT prophylaxis given her acute anemia. Time Spent with Patient Time attestation: Total time spent providing and/or coordinating discharge services: 35 mins Exam Narrative: APPEARANCE: somnolent, not in acute distress HEAD: normocephalic, atraumatic. EYES: PERRLA/EOMI, conjunctivae clear. NOSE: Normal no drainage NECK: Supple. No adenopathy, no masses. RESPIRATORY: Airway patent, respirations nonlabored. Clear to auscultation bilaterally, no rales, rhonchi, wheezing. CARDIOVASCULAR: Regular rate and rhythm without murmurs rubs or gallops. ABDOMINAL: Soft, nontender, nondistended, normal bowel sounds MUSCULOSKELETAL: Moves all extremities. Strength/ROM intact, No edema, No calf tenderness. NEURO: Alert. Cranial nerves II through XII intact. Good gait. Good coordination SKIN: Warm, dry. Normal Color DS: Data Data Completed and Pending Labs on day of discharge: Labs from last 24 hours 07/24/24 05:37 Haptoglobin <10 L Imaging Radiologist's impression: ITS Impressions Chest X-Ray 07/23/24 12:39 IMPRESSION: Bilateral pleural effusions, right greater than left. Chest/Abdomen/Pelvis CT 07/23/24 14:50 IMPRESSION: 1. Extensive lymphadenopathy at the neck, chest, abdomen, pelvis and bilateral inguinal regions concerning for lymphoma with differential including other metastatic disease. Recommend ultrasound-guided biopsy for the axillary lymph nodes. 2. Anasarca with moderate sized right, small left pleural effusions, small pericardial effusion, small amount of ascites and extensive soft tissue edema. 3. Small region of tree-in-bud opacity in the anterior right upper lobe suggesting bronchiolitis related to endobronchial spread of disease. 4. Enlargement of the central pulmonary arteries consistent with pulmonary arterial hypertension. Venous Doppler Study 07/24/24 09:14 IMPRESSION: 1. No deep venous thrombosis. Discharge Plan Discharge Attending physician on discharge: Darshan Aldridge Discharging Clinician: Darshan Aldridge Anticipated Discharge Date/Time: 07/25/24 13:13 Patient Disposition: Hospice - Home Activity: as tolerated Diet: as tolerated Patient Language: Panamanian Stand Alone Forms: General Discharge Information Follow-up/Referrals: Kenny Yepez, [Primary Care Provider] - 1 Week Discharge Medications: New lorazepam 0.5 mg Tablet 0.5 mg PO Q6H PRN (Reason: Anxiety) Qty: 30 0RF tramadol 50 mg tablet 50 mg PO Q6H PRN (Reason: Pain Rated 4-6) Qty: 20 0RF Continued albuterol sulfate 2.5 mg /3 mL (0.083 %) solution for nebulization 2.5 mg inhalation Q6H megestrol 40 mg tablet 40 mg PO BID Qty: 60 2RF budesonide-formoterol [Symbicort] 80-4.5 mcg/actuation HFA aerosol inhaler 2 puff inhalation Q12H Qty: 10.2 2RF Boost High Protein 0.08 gram- 1.1 kcal/mL liquid 1 ea PO TID Qty: 2844 4RF levothyroxine 50 mcg tablet 50 mcg PO DAILY Qty: 90 2RF fluticasone propionate [Flonase Allergy Relief] 50 mcg/actuation spray,suspension 2 spray intranasal DAILY Qty: 16 3RF Rx Instructions: administer into each nostril atorvastatin 40 mg tablet See Rx Instructions .ROUTE .COMPLEX Qty: 90 2RF Dose Instruction: TAKE 1 TABLET DAILY Rx Instructions: TAKE 1 TABLET DAILY aspirin 325 mg Tablet 325 mg PO DAILY@0800 Qty: 0 0RF acetaminophen 325 mg Tablet See Rx Instructions .ROUTE .COMPLEX PRN (Reason: Pain) Rx Instructions: Take as directed on bottle Discontinued furosemide [Lasix] 20 mg tablet 20 mg PO QAM Qty: 30 1RF Date of admission: 07/24/24 09:24 Primary Care Provider: Kenny Yepez Admitting Provider: Diana Vaughan Attending physician on admission: Diana Vaughan Condition: Guarded Prognosis
== END 2024-07-25 14:05 | disposition hospice, home (50) | DRG 815 ==
LOC: ANHED 16:03 → ANH2MED 16:51
PROVIDERS: Internal Medicine; Physician Assistant; Admitting Provider Internal Medicine; Emergency Provider Emergency Medicine; PCP Internal Medicine; Visit Provider Internal Medicine
DX: R59.1 Generalized enlarged lymph nodes (principal); E87.1 Hypo-osmolality and hyponatremia; I69.351 Hemiplegia and hemiparesis following cerebral infarction affecting right dominant side; N17.9 Acute kidney failure, unspecified; J90 Pleural effusion, not elsewhere classified; E86.0 Dehydration; D63.8 Anemia in other chronic diseases classified elsewhere; E03.9 Hypothyroidism, unspecified; E78.5 Hyperlipidemia, unspecified; I10 Essential (primary) hypertension; M17.0 Bilateral primary osteoarthritis of knee; G25.81 Restless legs syndrome; K58.9 Irritable bowel syndrome, unspecified; D63.0 Anemia in neoplastic disease; E88.09 Other disorders of plasma-protein metabolism, not elsewhere classified; R74.01 Elevation of levels of liver transaminase levels; I27.20 Pulmonary hypertension, unspecified; I69.320 Aphasia following cerebral infarction; Z51.5 Encounter for palliative care
CPT/HCPCS: 36415; 71045; 71250; 74176; 80053; 81001; 82550; 82728; 83010; 83540; 83550; 83690; 83880; 84484; 84550; 85025; 85046; 85610; 85730; 87637; 93005; 93970; 96361; 96372; 96374; 96375; 96376; 99285; A9270; G0378; J2270; J7120